=== PATIENT | male | born 1970 | race Caucasian/White ===

== ENCOUNTER → 2017-02-20 | Outpatient (CLI) | payer OTHER ==
[2017-02-20 14:32] LABS: ABSOLUTE BASOPHILS # (AUTO) 0.1 10^3/uL (0.0-0.2); ABSOLUTE EOSINOPHILS # (AUTO) 0.1 10^3/uL (0.0-0.6); ABSOLUTE LYMPHOCYTES (AUTO) 1.6 10^3/uL (0.5-4.7); ABSOLUTE NEUT (AUTO) 8.6 10^3/uL (1.7-8.2); BASOPHILS % (AUTO) 0.9 % (0-2); EOSINOPHILS % (AUTO) 0.5 % (0-6); HEMATOCRIT 42.5 % (37.9-51.0); HEMOGLOBIN 14.9 g/dL (13.5-17.0); HGB HCT DIFFERENCE 2.2; LYMPHOCYTES % (AUTO) 14.3 % (13-45); MEAN CORPUSCULAR HEMOGLOBIN 32.3 pg (27.0-33.4); MEAN CORPUSCULAR HGB CONC 35.1 g/dL (32.0-36.0); MEAN CORPUSCULAR VOLUME 92 fl (80-97); RED BLOOD COUNT 4.61 10^6/uL (4.35-5.55); SEGMENTED NEUTROPHILS % (AUTO) 75.3 % (42-78); WHITE BLOOD COUNT 11.4 10^3/uL (4.0-10.5)
[2017-02-20 14:47] LABS: ALANINE AMINOTRANSFERASE 68 U/L (21-72); ALBUMIN 4.5 g/dL (3.5-5.0); ALKALINE PHOSPHATASE 127 U/L (38-126); ANION GAP 12 (5-19); ASPARTATE AMINO TRANSFERASE 29 U/L (17-59); BILIRUBIN,DIRECT 0.5 mg/dL (0.0-0.4); BILIRUBIN,TOTAL 1.1 mg/dL (0.2-1.3); BLOOD UREA NITROGEN 9 mg/dL (7-20); CALCIUM 9.9 mg/dL (8.4-10.2); CARBON DIOXIDE 24 mmol/L (22-30); CHLORIDE 103 mmol/L (98-107); CREATININE RESULT 1.05 mg/dL (0.52-1.25); GLUCOSE 156 mg/dL (75-110); POTASSIUM 4.7 mmol/L (3.6-5.0); SODIUM 139.3 mmol/L (137-145); TOTAL PROTEIN 7.3 g/dL (6.3-8.2); URIC ACID 7.5 mg/dL (3.5-8.5)
== END ==
LOC: OD 14:09
PROVIDERS: ATTEND Nurse Practitioner Acute Care
DX: M25.562 Pain in left knee (principal)
CPT/HCPCS: 36415; 80053; 84550; 85025

== ENCOUNTER 2019-05-04 23:13 | Inpatient (IN) | payer OTHER ==
[2019-05-04] MEDS ORDERED: NORMAL SALINE 1000 ML 1,000 ML IV ONE (23:50)
[2019-05-04] MEDS ORDERED: ONDANSETRON HCL INJ/PF 4 MG/2 ML SDV IV ONE (23:52)
[2019-05-04] MEDS ORDERED: KETOROLAC TROMETHAMINE INJ/PF 30 MG/1 ML SDV IV ONE (23:52)
[2019-05-05] MEDS ORDERED: FENTANYL CITRATE INJ/PF 100 MCG/2 ML AMPUL IV ONE ×2 (00:17→01:14)
[2019-05-05 00:25] LABS: ABSOLUTE BASOPHILS # (AUTO) 0.1 10^3/uL (0.0-0.2); ABSOLUTE LYMPHOCYTES (AUTO) 1.2 10^3/uL (0.5-4.7); ALBUMIN 4.5 g/dL (3.5-5.0); ALKALINE PHOSPHATASE 121 U/L (38-126); ANION GAP 19 (5-19); ASPARTATE AMINO TRANSFERASE 21 U/L (17-59); BASOPHILS % (AUTO) 0.6 % (0-2); BILIRUBIN,DIRECT 0.5 mg/dL (0.0-0.4); BLOOD UREA NITROGEN 14 mg/dL (7-20); CARBON DIOXIDE 20 mmol/L (22-30); CHLORIDE 97 mmol/L (98-107); EOSINOPHILS % (AUTO) 0.1 % (0-6); GLUCOSE 198 mg/dL (75-110); HEMATOCRIT 46.7 % (37.9-51.0); HEMOGLOBIN 15.6 g/dL (13.5-17.0); LYMPHOCYTES % (AUTO) 6.7 % (13-45); MEAN CORPUSCULAR HEMOGLOBIN 30.9 pg (27.0-33.4); MEAN CORPUSCULAR HGB CONC 33.5 g/dL (32.0-36.0); MEAN CORPUSCULAR VOLUME 92 fl (80-97); MONOCYTES % (AUTO) 5.6 % (3-13); PLATELET COUNT 335 10^3/uL (150-450); POTASSIUM 4.4 mmol/L (3.6-5.0); RED BLOOD COUNT 5.06 10^6/uL (4.35-5.55); RED CELL DISTRIBUTION WIDTH 13.8 % (11.5-14.0); TOTAL CELLS COUNTED % (AUTO) 100 %; TOTAL PROTEIN 7.4 g/dL (6.3-8.2); WHITE BLOOD COUNT 17.2 10^3/uL (4.0-10.5)
[2019-05-05] MEDS ORDERED: NORMAL SALINE 1000 ML 1,000 ML IV ONE ×5 (00:27→20:15)
--- NOTE | 2019-05-05 00:41 | RADIOLOGY REPORT (SQ) ---
CT ABDOMEN PELVIS WITHOUT IV CONTRAST EXAM DATE: 05/04/2019 11:58 PM CDT HISTORY: Abdominal pain. COMPARISON: None. TECHNIQUE: CT scan of the abdomen and pelvis was performed without IV contrast. This exam was performed according to our departmental dose-optimization program, which includes automated exposure control, adjustment of the mA and/or kV according to patient size and/or use of iterative reconstruction technique. FINDINGS: The lung bases are clear. No pleural or pericardial effusions. No hiatal hernia. Hepatic steatosis. The gallbladder, spleen, pancreas, adrenal glands, and kidneys are unremarkable without hydronephrosis. There is a simple cyst in the left kidney. Wall thickening of the urinary bladder likely reactive. The prostate gland and seminal vesicles are unremarkable. There is marked wall thickening with inflammatory stranding involving the sigmoid colon consistent with acute diverticulitis. Additionally, there are multiple pockets of free air consistent with microperforation. No drainable fluid collection is seen at this time. No small bowel obstruction. The appendix is not seen. The aorta is normal caliber. The osseous structures are intact. No abnormal body wall hernia. IMPRESSION: 1. Acute sigmoid diverticulitis with microperforation. 2. No drainable abscess at this time.
[2019-05-05] MEDS ORDERED: PIPERACILLIN/TAZOBACTAM 3.375 GM VIAL IV ONE (00:57)
[2019-05-05] MEDS ORDERED: CIPROFLOXACIN 400 MG/D5W RTU 400 MG/200 ML RTUPB IV SCH (01:00)
--- NOTE | 2019-05-05 01:36 | ER Document Report ---
Entered by CARLOS ROBLEDO SCRIBE 05/05/19 0100 Acting as scribe for:ANGEL JACKSON DO ED GI/ - General Chief Complaint: Abdominal Pain Stated Complaint: ABDOMINAL PAIN Time Seen by Provider: 05/04/19 23:49 Primary Care Provider: DEB ESTRADA NP [Primary Care Provider] - Follow up as needed Mode of Arrival: Ambulatory Information source: Patient Notes: Patient is a 48-year-old male who presents to the emergency department today with complaints of abdominal pain which he states began yesterday at around lunch time. Patient states his abdominal pain has become much worse since yesterday. Patient states the pain has been in the same spot since onset which is just below his umbilicus. Patient also mentions feeling like he has to urinate but can't. Patient states he has had associated nausea, diarrhea, and diaphoresis. Patient denies fevers, history of kidney stones, or history of diverticulitis. TRAVEL OUTSIDE OF THE [place] IN LAST 30 DAYS: No - Related Data Allergies/Adverse Reactions: No Known Allergies Allergy (Verified 05/04/19 23:25) Home Medications: allpurinol. amilodipine Past Medical History - General Information source: Patient - Social History Smoking Status: Never Smoker Cigarette use (# per day): No Frequency of alcohol use: None Drug Abuse: None Lives with: Family Family History: Reviewed & Not Pertinent Patient has suicidal ideation: No Patient has homicidal ideation: No Past Surgical History: Reports: Hx Herniorrhaphy - as a child Review of Systems - Review of Systems Constitutional: See HPI, Diaphoresis. denies: Fever EENT: No symptoms reported Cardiovascular: No symptoms reported Respiratory: No symptoms reported Gastrointestinal: See HPI, Abdominal pain, Diarrhea, Nausea Genitourinary: No symptoms reported Male Genitourinary: No symptoms reported Musculoskeletal: No symptoms reported Skin: No symptoms reported Hematologic/Lymphatic: No symptoms reported Neurological/Psychological: No symptoms reported -: Yes All other systems reviewed and negative Physical Exam - Vital signs Vitals: Temp Pulse Resp BP Pulse Ox 98.9 F 104 H 16 99/69 L 98 05/04/19 23:18 05/04/19 23:18 05/04/19 23:18 05/04/19 23:18 05/04/19 23:18 Interpretation: Hypotensive, Tachycardic - General General appearance: Alert In distress: Mild - HEENT Head: Normocephalic, Atraumatic Extraocular movements intact: Yes Pupils: PERRL Mucous membranes: Dry Pharynx: Normal Neck: Normal - Respiratory Respiratory status: Tachypnea Chest status: Nontender Breath sounds: Normal Chest palpation: Normal - Cardiovascular Rhythm: Regular, Tachycardia - Abdominal Inspection: Obese Distension: Distended Tenderness: Tender - Back Back: Normal, Nontender. No: CVA tenderness - Extremities General upper extremity: Normal inspection, Nontender, Normal color, Normal ROM General lower extremity: Normal inspection, Nontender, Normal color, Normal ROM - Neurological Neuro grossly intact: Yes Cognition: Normal Orientation: AAOx4 Kellie Coma Scale Verbal: Oriented [place] Coma Scale Motor: Obeys Commands Speech: Normal - Psychological Associated symptoms: Normal affect, Normal mood - Skin Skin Temperature: Warm Skin Moisture: Dry Skin Color: Normal Course - Re-evaluation Re-evalutation: 05/05/19 01:[address] Bran regarding CT results. Will come down to evaluate patient. 05/05/19 01:15 Dr. Bran in the emergency department. Will accept patient for admission. Recommend Cipro / Flagyl. Patient is a 48-year-old male who comes in with abdominal pain nausea. No history of kidney stones or diverticulitis. Patient is tachycardic and hypotensive. IV fluids started. Lactic 2.2. CT showing diverticulitis with microperforation. Surgeon has seen the patient and will admit. He does not need any or intervention at this time. Culture sent. Cipro and Flagyl initiated in the emergency department. Pain controlled with fentanyl. Patient will be kept n.p.o. Fluids running. Understands and agrees with plan. Stable at the time of admission to the surgical service. - Vital Signs Vital signs: Temp Pulse Resp BP Pulse Ox 98.9 F 104 H 16 99/69 L 98 05/04/19 23:18 05/04/19 23:18 05/04/19 23:18 05/04/19 23:18 05/04/19 23:18 - Laboratory Result Diagrams: 05/05/19 00:03 05/05/19 00:03 Laboratory results interpreted by me: 05/05/19 05/05/19 05/05/19 00:03 00:03 00:39 WBC 17.2 H Lymph % (Auto) 6.7 L Absolute Neuts (auto) 15.0 H Seg Neutrophils % 87.0 H Sodium 135.6 L Chloride 97 L Carbon Dioxide 20 L Creatinine 2.04 H Est GFR ( Amer) 42 L Est GFR (MDRD) Non-Af 35 L Glucose 198 H Lactic Acid 2.2 H Total Bilirubin 2.0 H Direct Bilirubin 0.5 H Critical Care Note - Critical Care Note Total time excluding time spent on procedures (mins): 35 - Concern for surgical abdomen, multiple re-evaluations, consultation with specialist, coordination of admission, counseling patient and family Discharge - Discharge Clinical Impression: Diverticulitis of intestine with perforation without abscess Qualifiers: Diverticulitis site: large intestine Diverticulitis bleeding: unspecified bleeding status Qualified Code(s): K57.20 - Diverticulitis of large intestine with perforation and abscess without bleeding Condition: Stable Disposition: ADMITTED INPATIENT Admitting Provider: Surgicalist - [facility] Unit Admitted: Surgical Floor Referrals: DEB ESTRADA BIOASSAYIST [Primary Care Provider] - Follow up as needed I personally performed the services described in the documentation, reviewed and edited the documentation which was dictated to the scribe in my presence, and it accurately records my words and actions.
[2019-05-05] MEDS ORDERED: METRONIDAZOLE 500 MG/NS RTU 500 MG/100 ML RTUPB IV ONE (02:00)
--- NOTE | 2019-05-05 02:04 | PDOC H&P ---
History of Present Illness Admission Date/PCP: 05/05/19 01:44 DEB ESTRADA NP Patient complains of: Abdominal pains History of Present Illness: MICHAEL BROWNING is a 48 year old male who has been constipated in the past several days complaining of severe lower abdominal pains last night. This was associated with diarrhea, nausea and chills and fever. He went to ED where CT scan of the abdomen revealed sigmoid diverticulitis with microperforation. He never had any same type of abdominal pains in the past. Past Medical History Medical History: None Past Surgical History Past Surgical History: Reports: Herniorrhaphy - as a child Social History Lives with: Family Smoking Status: Never Smoker Family History Family History: Reviewed & Not Pertinent Parental Family History Reviewed: Yes - Father had diabetes mellitus Children Family History Reviewed: No Sibling(s) Family History Reviewed.: No Medication/Allergy Allergies/Adverse Reactions: No Known Allergies Allergy (Verified 05/04/19 23:25) Review of Systems Constitutional: PRESENT: as per HPI Gastrointestinal: PRESENT: abdominal pain, diarrhea, nausea Physical Exam Vital Signs: Temp Pulse Resp BP Pulse Ox 98.9 F 104 H 16 99/69 L 98 05/04/19 23:18 05/04/19 23:18 05/04/19 23:18 05/04/19 23:18 05/04/19 23:18 Intake & Output 05/03/19 05/04/19 05/05/19 06:59 06:59 06:59 Intake Total 1000 Balance 1000 Weight 95.254 kg General appearance: PRESENT: severe distress Head exam: PRESENT: atraumatic Eye exam: PRESENT: conjunctiva pink Mouth exam: PRESENT: moist Neck exam: PRESENT: full ROM Respiratory exam: PRESENT: clear to auscultation willian Cardiovascular exam: PRESENT: RRR Pulses: PRESENT: normal radial pulses Vascular exam: PRESENT: normal capillary refill GI/Abdominal exam: PRESENT: soft, tenderness - Lower abdomen Rectal exam: PRESENT: deferred Neurological exam: PRESENT: alert, oriented to person, oriented to place, oriented to time, oriented to situation Psychiatric exam: PRESENT: appropriate affect Skin exam: PRESENT: normal color, warm Results Laboratory Results: 05/05/19 00:03 05/05/19 00:03 05/05/19 05/05/19 05/05/19 00:03 00:03 00:39 WBC 17.2 H RBC 5.06 Hgb 15.6 Hct 46.7 MCV 92 MCH 30.9 MCHC 33.5 RDW 13.8 Plt Count 335 Seg Neutrophils % 87.0 H Sodium 135.6 L Potassium 4.4 Chloride 97 L Carbon Dioxide 20 L Anion Gap 19 BUN 14 Creatinine 2.04 H Est GFR ( Amer) 42 L Glucose 198 H Lactic Acid 2.2 H Calcium 10.0 Total Bilirubin 2.0 H AST 21 Alkaline Phosphatase 121 Total Protein 7.4 Albumin 4.5 Lipase 40.7 Impressions: Abdomen/Pelvis CT 05/04/19 23:58 IMPRESSION: 1. Acute sigmoid diverticulitis with microperforation. 2. No drainable abscess at this time. Assessment & Plan - Diagnosis (1) Diverticulitis of intestine with perforation without abscess Qualifiers: Diverticulitis site: large intestine Diverticulitis bleeding: unspecified bleeding status Qualified Code(s): K57.20 - Diverticulitis of large intestine with perforation and abscess without bleeding Is this a current diagnosis for this admission?: Yes - Time Time Spent: 30 to 50 Minutes - Inpatient Certification Medical Necessity: Need For IV Fluids, Need for Pain Control, Need for IV Antibiotics - Plan Summary Plan Summary: 48-year-old male with acute sigmoid diverticulitis with the microperforation noted on CAT scan. His pain started last night long both lower quadrants with nausea and diarrhea. He is tender in both lower quadrants. Plans: IV antibiotics and hydration Monitor monitor physical findings serially and WBCs If his symptoms worsen then he will need exploratory laparotomy with possible colostomy Patient is aware of his condition and above plans
[2019-05-05] MEDS ORDERED: ONDANSETRON HCL INJ/PF 4 MG/2 ML SDV IV PRN (02:26)
[2019-05-05] MEDS: METRONIDAZOLE 500 MG/NS RTU 500 MG/100 ML RTUPB IV SCH ×4 (02:46→22:17)
[2019-05-05] MEDS: KETOROLAC TROMETHAMINE INJ/PF 30 MG/1 ML SDV IV PRN ×3 (04:44→18:36)
[2019-05-05] MEDS: HYDROMORPHONE HCL INJ/PF 2 MG/ML AMPULE IV PRN ×5 (08:05→23:36)
[2019-05-05] MEDS: CIPROFLOXACIN 400 MG/D5W RTU 400 MG/200 ML RTUPB IV SCH ×2 (09:14→22:18)
[2019-05-05] MEDS: FAMOTIDINE INJ/PF 20 MG/2 ML SDV IV SCH ×2 (09:15→22:18)
[2019-05-05] MEDS: ENOXAPARIN SODIUM INJ 40 MG/0.4 ML DISP.SYRIN SUBCUT SCH (09:15)
[2019-05-05] MEDS: DEXTROSE 5%-LACTATED RINGERS 1,000 ML IV PRN ×2 (10:45→22:21)
[2019-05-05 13:26] LABS: HEMATOCRIT 43.8 % (37.9-51.0); MEAN CORPUSCULAR HEMOGLOBIN 31.2 pg (27.0-33.4); MEAN CORPUSCULAR HGB CONC 34.2 g/dL (32.0-36.0); MEAN CORPUSCULAR VOLUME 91 fl (80-97); PLATELET COUNT 247 10^3/uL (150-450); RED CELL DISTRIBUTION WIDTH 13.6 % (11.5-14.0); WHITE BLOOD COUNT 12.6 10^3/uL (4.0-10.5)
[2019-05-05 13:40] LABS: ANION GAP 14 (5-19); BLOOD UREA NITROGEN 28 mg/dL (7-20); CALCIUM 9.2 mg/dL (8.4-10.2); CARBON DIOXIDE 19 mmol/L (22-30); CHLORIDE 102 mmol/L (98-107); GLUCOSE 202 mg/dL (75-110); POTASSIUM 4.8 mmol/L (3.6-5.0)
[2019-05-05] MEDS ORDERED: NORMAL SALINE 1000 ML 2,000 ML IV ONE (13:45)
[2019-05-05 19:56] LABS: ANION GAP 12 (5-19); BLOOD UREA NITROGEN 30 mg/dL (7-20); CALCIUM 8.5 mg/dL (8.4-10.2); CARBON DIOXIDE 16 mmol/L (22-30); CHLORIDE 108 mmol/L (98-107); GLUCOSE 168 mg/dL (75-110); POTASSIUM 4.2 mmol/L (3.6-5.0)
--- NOTE | 2019-05-05 20:48 | PDOC PROGRESS REPORT ---
Subjective Progress Note for:: 05/05/19 Subjective:: This is a 48-year-old male admitted with diverticulitis. Patient reports that his pain is improving. Upon my evaluation, he complained of minimal urine output. The nurses were not keeping strict I's and O's. The patient reports abdominal pain and diarrhea. He denies chest pain, shortness of breath, nausea, vomiting, blurry vision, dizziness, orthostasis. Reason For Visit: ACUTE SIGMOID DIVERTICULITIS WITH MICROPERFORATION Physical Exam Vital Signs: Temp Pulse Resp BP Pulse Ox 97.7 F 105 H 18 126/82 H 97 05/05/19 16:01 05/05/19 16:01 05/05/19 16:01 05/05/19 16:01 05/05/19 16:01 Intake & Output 05/04/19 05/05/19 05/06/19 06:59 06:59 06:59 Intake Total 1100 3300 Output Total 100 Balance 1100 3200 Weight 95.25 kg General appearance: PRESENT: cooperative, mild distress - Abdominal pain Head exam: PRESENT: atraumatic, normocephalic Eye exam: PRESENT: EOMI, PERRLA. ABSENT: scleral icterus Mouth exam: PRESENT: moist, neck supple Neck exam: ABSENT: tenderness, thyromegaly, tracheal deviation, tracheostomy Respiratory exam: PRESENT: clear to auscultation willian, unlabored. ABSENT: chest wall tenderness, tachypnea, wheezes Cardiovascular exam: PRESENT: tachycardia - Mild Pulses: PRESENT: normal radial pulses Vascular exam: PRESENT: normal capillary refill GI/Abdominal exam: PRESENT: distended, soft, tenderness - Market bilateral lower quadrant tenderness. No sign of generalized peritonitis.. ABSENT: rebound, rigid Rectal exam: PRESENT: deferred Extremities exam: ABSENT: clubbing Musculoskeletal exam: ABSENT: deformity Neurological exam: PRESENT: alert, awake, oriented to person, oriented to place, oriented to time, oriented to situation Psychiatric exam: ABSENT: agitated, anxious, depressed Focused psych exam: ABSENT: delusional Skin exam: ABSENT: cyanosis, erythema, jaundice Results Laboratory Results: 05/05/19 12:51 05/05/19 19:28 05/05/19 05/05/19 05/05/19 00:03 00:03 00:39 WBC 17.2 H RBC 5.06 Hgb 15.6 Hct 46.7 MCV 92 MCH 30.9 MCHC 33.5 RDW 13.8 Plt Count 335 Seg Neutrophils % 87.0 H Sodium 135.6 L Potassium 4.4 Chloride 97 L Carbon Dioxide 20 L Anion Gap 19 BUN 14 Creatinine 2.04 H Est GFR ( Amer) 42 L Glucose 198 H Lactic Acid 2.2 H Calcium 10.0 Total Bilirubin 2.0 H AST 21 Alkaline Phosphatase 121 Total Protein 7.4 Albumin 4.5 Lipase 40.7 05/05/19 05/05/19 05/05/19 12:51 12:51 12:51 WBC 12.6 H RBC 4.80 Hgb 15.0 Hct 43.8 MCV 91 MCH 31.2 MCHC 34.2 RDW 13.6 Plt Count 247 Seg Neutrophils % Sodium 134.8 L Potassium 4.8 Chloride 102 Carbon Dioxide 19 L Anion Gap 14 BUN 28 H Creatinine 3.00 H Est GFR ( Amer) 27 L Glucose 202 H Lactic Acid 2.3 H Calcium 9.2 Total Bilirubin AST Alkaline Phosphatase Total Protein Albumin Lipase 05/05/19 05/05/19 19:28 19:28 WBC RBC Hgb Hct MCV MCH MCHC RDW Plt Count Seg Neutrophils % Sodium 136.3 L Potassium 4.2 Chloride 108 H Carbon Dioxide 16 L Anion Gap 12 BUN 30 H Creatinine 2.36 H Est GFR ( Amer) 36 L Glucose 168 H Lactic Acid 1.2 Calcium 8.5 Total Bilirubin AST Alkaline Phosphatase Total Protein Albumin Lipase Impressions: Abdomen/Pelvis CT 05/04/19 23:58 IMPRESSION: 1. Acute sigmoid diverticulitis with microperforation. 2. No drainable abscess at this time. Assessment & Plan - Diagnosis (1) Diverticulitis of intestine with perforation without abscess Qualifiers: Diverticulitis site: large intestine Diverticulitis bleeding: unspecified bleeding status Qualified Code(s): K57.20 - Diverticulitis of large intestine with perforation and abscess without bleeding Is this a current diagnosis for this admission?: Yes - Time Time Spent with patient: 15-24 minutes - Plan Summary Plan Summary: This is a 48-year-old male with diverticulitis. He has abdominal tenderness but not overt generalized peritonitis. He complains of difficulty urinating. I believe he is dehydrated and third spacing. I have given him multiple fluid boluses today. I had the nurses insert a Hanna catheter. The patient is now making adequate amounts of urine. His creatinine was elevated at 3 earlier this morning, but is now trending toward normal. His lactate is 1.2 after several boluses. Continue to monitor urine output, heart rate, and temperature very closely. If his abdominal tenderness, urine output, or heart rate worsens, he may require operative intervention. This has been discussed with the patient at length.
[2019-05-06] MEDS: KETOROLAC TROMETHAMINE INJ/PF 30 MG/1 ML SDV IV PRN ×3 (00:47→20:52)
[2019-05-06] MEDS: METRONIDAZOLE 500 MG/NS RTU 500 MG/100 ML RTUPB IV SCH ×4 (03:32→20:54)
[2019-05-06] MEDS: HYDROMORPHONE HCL INJ/PF 2 MG/ML AMPULE IV PRN ×6 (03:33→21:50)
[2019-05-06 04:52] LABS: HEMATOCRIT 40.2 % (37.9-51.0); HEMOGLOBIN 13.6 g/dL (13.5-17.0); MEAN CORPUSCULAR HEMOGLOBIN 31.3 pg (27.0-33.4); MEAN CORPUSCULAR VOLUME 92 fl (80-97); PLATELET COUNT 244 10^3/uL (150-450); RED BLOOD COUNT 4.36 10^6/uL (4.35-5.55); WHITE BLOOD COUNT 10.4 10^3/uL (4.0-10.5)
[2019-05-06 05:09] LABS: ALBUMIN 2.8 g/dL (3.5-5.0); ALKALINE PHOSPHATASE 54 U/L (38-126); ANION GAP 12 (5-19); ASPARTATE AMINO TRANSFERASE 21 U/L (17-59); BILIRUBIN,DIRECT 0.6 mg/dL (0.0-0.4); BILIRUBIN,TOTAL 1.2 mg/dL (0.2-1.3); BLOOD UREA NITROGEN 29 mg/dL (7-20); CALCIUM 8.6 mg/dL (8.4-10.2); CARBON DIOXIDE 18 mmol/L (22-30); CHLORIDE 112 mmol/L (98-107); GLUCOSE 154 mg/dL (75-110); POTASSIUM 4.3 mmol/L (3.6-5.0); TOTAL PROTEIN 5.3 g/dL (6.3-8.2)
[2019-05-06 05:24] LABS: ABSOLUTE LYMPHOCYTES# (MANUAL) 0.4 10^3/uL (0.5-4.7); ABSOLUTE MONOCYTES # (MANUAL) 0.3 10^3/uL (0.1-1.4); ANISOCYTOSIS SLIGHT; BAND NEUTROPHILS % (MANUAL) 9 % (3-5); BASOPHILS % (MANUAL) 0 % (0-2); EOSINOPHILS % (MANUAL) 0 % (0-6); LYMPHOCYTES % (MANUAL) 4 % (13-45); METAMYELOCYTES % (MANUAL) 1 % (0); MONOCYTES % (MANUAL) 3 % (3-13); PLATELET COMMENT ADEQUATE; PLATELET LARGE PRESENT; SEGMENTED NEUTROPHILS % (MAN) 83 % (42-78); TOTAL CELLS COUNTED 100
[2019-05-06] MEDS ORDERED: INFLUENZA QUAD (6MOS+) 2019-20 VAC 0.5 ML SYR IM ONE (08:00)
[2019-05-06] MEDS: CIPROFLOXACIN 400 MG/D5W RTU 400 MG/200 ML RTUPB IV SCH ×2 (09:32→21:00)
[2019-05-06] MEDS: FAMOTIDINE INJ/PF 20 MG/2 ML SDV IV SCH ×2 (09:33→21:50)
[2019-05-06] MEDS: ENOXAPARIN SODIUM INJ 40 MG/0.4 ML DISP.SYRIN SUBCUT SCH (09:33)
--- NOTE | 2019-05-06 10:32 | PDOC PROGRESS REPORT ---
Subjective Progress Note for:: 05/06/19 Subjective:: Less pains. Had BM and flatus Thirsty Reason For Visit: ACUTE SIGMOID DIVERTICULITIS WITH MICROPERFORATION Physical Exam Vital Signs: Temp Pulse Resp BP Pulse Ox 99.5 F 117 H 16 99/63 L 93 05/06/19 07:40 05/06/19 07:40 05/06/19 07:40 05/06/19 07:40 05/06/19 07:40 Intake & Output 05/05/19 05/06/19 05/07/19 06:59 06:59 06:59 Intake Total 1100 4800 1000 Output Total 650 Balance 1100 4150 1000 Weight 95.25 kg 95 kg Exam: abdomen is soft less tender LLQ Results Laboratory Results: 05/06/19 04:13 05/06/19 04:13 05/05/19 05/05/19 05/05/19 12:51 12:51 12:51 WBC 12.6 H RBC 4.80 Hgb 15.0 Hct 43.8 MCV 91 MCH 31.2 MCHC 34.2 RDW 13.6 Plt Count 247 Seg Neutrophils % Sodium 134.8 L Potassium 4.8 Chloride 102 Carbon Dioxide 19 L Anion Gap 14 BUN 28 H Creatinine 3.00 H Est GFR ( Amer) 27 L Glucose 202 H Lactic Acid 2.3 H Calcium 9.2 Total Bilirubin AST Alkaline Phosphatase Total Protein Albumin 05/05/19 05/05/19 05/06/19 19:28 19:28 04:13 WBC 10.4 RBC 4.36 Hgb 13.6 Hct 40.2 MCV 92 MCH 31.3 MCHC 34.0 RDW 14.0 Plt Count 244 Seg Neutrophils % Not Reportable Sodium 136.3 L Potassium 4.2 Chloride 108 H Carbon Dioxide 16 L Anion Gap 12 BUN 30 H Creatinine 2.36 H Est GFR ( Amer) 36 L Glucose 168 H Lactic Acid 1.2 Calcium 8.5 Total Bilirubin AST Alkaline Phosphatase Total Protein Albumin 05/06/19 04:13 WBC RBC Hgb Hct MCV MCH MCHC RDW Plt Count Seg Neutrophils % Sodium 141.8 Potassium 4.3 Chloride 112 H Carbon Dioxide 18 L Anion Gap 12 BUN 29 H Creatinine 1.95 H Est GFR ( Amer) 44 L Glucose 154 H Lactic Acid Calcium 8.6 Total Bilirubin 1.2 AST 21 Alkaline Phosphatase 54 Total Protein 5.3 L Albumin 2.8 L Impressions: Abdomen/Pelvis CT 05/04/19 23:58 IMPRESSION: 1. Acute sigmoid diverticulitis with microperforation. 2. No drainable abscess at this time. 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 He continues to have bowel movement and flatus. His creatinine is also coming down with the better hydration. Plans: Continue with IV antibiotics and hydration. Start with ice chips today and possibly increase it tomorrow to clear liquids
[2019-05-06] MEDS: DEXTROSE 5%-LACTATED RINGERS 1,000 ML IV PRN ×2 (13:10→21:47)
[2019-05-07] MEDS: HYDROMORPHONE HCL INJ/PF 2 MG/ML AMPULE IV PRN ×5 (02:29→20:55)
[2019-05-07] MEDS: METRONIDAZOLE 500 MG/NS RTU 500 MG/100 ML RTUPB IV SCH ×4 (02:30→20:51)
[2019-05-07 04:48] LABS: HEMATOCRIT 37.9 % (37.9-51.0); HEMOGLOBIN 12.9 g/dL (13.5-17.0); MEAN CORPUSCULAR HEMOGLOBIN 31.6 pg (27.0-33.4); MEAN CORPUSCULAR HGB CONC 34.1 g/dL (32.0-36.0); MEAN CORPUSCULAR VOLUME 93 fl (80-97); PLATELET COUNT 259 10^3/uL (150-450); RED CELL DISTRIBUTION WIDTH 14.2 % (11.5-14.0); WHITE BLOOD COUNT 8.8 10^3/uL (4.0-10.5)
[2019-05-07 05:03] LABS: ANION GAP 12 (5-19); BLOOD UREA NITROGEN 32 mg/dL (7-20); CALCIUM 8.9 mg/dL (8.4-10.2); CARBON DIOXIDE 17 mmol/L (22-30); CHLORIDE 114 mmol/L (98-107); GLUCOSE 147 mg/dL (75-110); POTASSIUM 4.1 mmol/L (3.6-5.0)
[2019-05-07 05:23] LABS: ABSOLUTE LYMPHOCYTES# (MANUAL) 0.4 10^3/uL (0.5-4.7); ABSOLUTE MONOCYTES # (MANUAL) 0.9 10^3/uL (0.1-1.4); ANISOCYTOSIS SLIGHT; BAND NEUTROPHILS % (MANUAL) 7 % (3-5); BASOPHILS % (MANUAL) 0 % (0-2); EOSINOPHILS % (MANUAL) 0 % (0-6); LYMPHOCYTES % (MANUAL) 5 % (13-45); MONOCYTES % (MANUAL) 10 % (3-13); PLATELET COMMENT ADEQUATE; SEGMENTED NEUTROPHILS % (MAN) 78 % (42-78); TOTAL CELLS COUNTED 100
[2019-05-07] MEDS: KETOROLAC TROMETHAMINE INJ/PF 30 MG/1 ML SDV IV PRN (05:55)
[2019-05-07] MEDS: DEXTROSE 5%-LACTATED RINGERS 1,000 ML IV PRN ×2 (05:55→16:44)
[2019-05-07] MEDS: FAMOTIDINE INJ/PF 20 MG/2 ML SDV IV SCH ×2 (09:12→21:00)
[2019-05-07] MEDS: ENOXAPARIN SODIUM INJ 40 MG/0.4 ML DISP.SYRIN SUBCUT SCH (09:12)
[2019-05-07] MEDS: CIPROFLOXACIN 400 MG/D5W RTU 400 MG/200 ML RTUPB IV SCH ×2 (09:17→21:00)
[2019-05-08] MEDS: HYDROMORPHONE HCL INJ/PF 2 MG/ML AMPULE IV PRN (03:00)
[2019-05-08] MEDS ORDERED: FUROSEMIDE INJ/PF 40 MG/4 ML SDV IV ONE (03:30)
[2019-05-08] MEDS ORDERED: LORAZEPAM INJ 2 MG/1 ML VIAL IV ONE (03:30)
[2019-05-08] MEDS: METRONIDAZOLE 500 MG/NS RTU 500 MG/100 ML RTUPB IV SCH ×4 (03:48→21:33)
[2019-05-08] MEDS ORDERED: ONDANSETRON HCL INJ/PF 4 MG/2 ML SDV ONE (04:12)
[2019-05-08] MEDS ORDERED: FENTANYL CITRATE INJ/PF 100 MCG/2 ML AMPUL ONE ×2 (04:12→07:46)
[2019-05-08] MEDS ORDERED: MIDAZOLAM 2 MG/2 ML INJ ONE ×2 (04:12→08:20)
[2019-05-08] MEDS ORDERED: KETOROLAC TROMETHAMINE 60 MG/2 ML SDV ONE (04:12)
[2019-05-08] MEDS ORDERED: DEXAMETHASONE SOD PHOSPHATE INJ 4 MG/1 ML VIAL ONE (04:12)
[2019-05-08] MEDS ORDERED: MORPHINE SULFATE 10 MG/ML INJ ONE ×2 (04:12→07:46)
[2019-05-08] MEDS ORDERED: LIDOCAINE 0.5% INJ-PF (5 MG/ML) 50 ML SDV ONE (04:13)
[2019-05-08] MEDS ORDERED: PROPOFOL INJ 200 MG/20 ML VIAL IV ONE (04:13)
[2019-05-08 04:23] LABS: HEMATOCRIT 42.6 % (37.9-51.0); HEMOGLOBIN 14.5 g/dL (13.5-17.0); MEAN CORPUSCULAR HEMOGLOBIN 31.3 pg (27.0-33.4); MEAN CORPUSCULAR VOLUME 92 fl (80-97); PLATELET COUNT 356 10^3/uL (150-450); RED BLOOD COUNT 4.62 10^6/uL (4.35-5.55); RED CELL DISTRIBUTION WIDTH 14.2 % (11.5-14.0); WHITE BLOOD COUNT 15.6 10^3/uL (4.0-10.5)
[2019-05-08 04:37] LABS: ANION GAP 15 (5-19); BLOOD UREA NITROGEN 24 mg/dL (7-20); CALCIUM 9.6 mg/dL (8.4-10.2); CARBON DIOXIDE 20 mmol/L (22-30); CHLORIDE 105 mmol/L (98-107); GLUCOSE 138 mg/dL (75-110); POTASSIUM 3.8 mmol/L (3.6-5.0)
[2019-05-08 04:42] LABS: ABSOLUTE LYMPHOCYTES# (MANUAL) 1.9 10^3/uL (0.5-4.7); ABSOLUTE MONOCYTES # (MANUAL) 1.2 10^3/uL (0.1-1.4); ANISOCYTOSIS SLIGHT; BAND NEUTROPHILS % (MANUAL) 5 % (3-5); BASOPHILS % (MANUAL) 0 % (0-2); EOSINOPHILS % (MANUAL) 2 % (0-6); LYMPHOCYTES % (MANUAL) 12 % (13-45); MONOCYTES % (MANUAL) 8 % (3-13); SEGMENTED NEUTROPHILS % (MAN) 73 % (42-78); TOTAL CELLS COUNTED 100
[2019-05-08 04:43] LABS: PLATELET COMMENT ADEQUATE
--- NOTE | 2019-05-08 04:46 | RADIOLOGY REPORT (SQ) ---
EXAM DESCRIPTION: XR CHEST 1 VIEW COMPLETED DATE/TME: 05/08/2019 00:00 CLINICAL HISTORY: 48 years Male, SOB COMPARISON: CT, 3 days prior NUMBER OF VIEWS/TECHNIQUE: 1/AP FINDINGS: Moderate pneumoperitoneum. Small obscuration-effusion of the left costophrenic angle, moderate volume, and prominent cardiac silhouette. No pneumothorax. Stable bony thorax. IMPRESSION: Moderate pneumoperitoneum could be iatrogenic or due to bowel perforation. Consider immediate Surgical referral.
[2019-05-08] MEDS ORDERED: DIPHENHYDRAMINE HCL 50 MG/ML VIAL IV PRN (05:59)
[2019-05-08] MEDS ORDERED: FENTANYL CITRATE INJ/PF 100 MCG/2 ML AMPUL IV PRN ×3 (05:59)
[2019-05-08] MEDS ORDERED: MORPHINE SULFATE 10 MG/ML INJ IV PRN (05:59)
[2019-05-08] MEDS ORDERED: PROMETHAZINE HCL INJ 25 MG/1 ML VIAL IV PRN ×2 (05:59)
[2019-05-08] MEDS ORDERED: ONDANSETRON HCL INJ/PF 4 MG/2 ML SDV IV PRN (05:59)
[2019-05-08] MEDS ORDERED: MEPERIDINE HCL/PF INJ 25 MG/1 ML DISP.SYRIN IV PRN (05:59)
[2019-05-08] MEDS ORDERED: OXYCODONE-ACETAMINOPHEN 5-325 MG TABLET PO PRN ×2 (05:59)
[2019-05-08] MEDS ORDERED: SUGAMMADEX SODIUM 200 MG/2 ML SDV IV ONE (07:46)
[2019-05-08] MEDS ORDERED: PHARMACY COMMUNICATION ORDER MC NR (08:15)
[2019-05-08] MEDS ORDERED: DEXMEDETOMIDINE INJ 80 MCG/20 ML VIAL IV ONE (08:20)
--- NOTE | 2019-05-08 08:31 | Operative Report ---
Operative Report DATE OF SURGERY: 05/08/19 PREOPERATIVE DIAGNOSIS: Perforated acute diverticulitis POSTOPERATIVE DIAGNOSIS: Same OPERATION: Exploratory laparotomy, sigmoid resection with distal sigmoid stump and proximal sigmoid colostomy SURGEON: LESLIE ARZATE - With Dr. Adan as co-surgeon ANESTHESIA: GA TISSUE REMOVED OR ALTERED: Sigmoid colon with perforation COMPLICATIONS: None ESTIMATED BLOOD LOSS: 150 cc QUANTITATIVE BLOOD LOSS: 150 INTRAOPERATIVE FINDINGS: Anterior perforation of the sigmoid colon with diverticulitis. Some form exudate around the perforation PROCEDURE: After adequate general anesthesia patient placed in supine position and the a bdomen prepped and draped in the usual sterile fashion. Appropriate timeout was then called. Next a midline incision was then made at the mid epigastric region down to the symphysis pubis. Fascia was then open and some air extruded out. There was some light greenish fluid around the abdominal cavity. The sigmoid colon was then identified and noted to be inflamed with an anterior perforation. This area was then resected using MADY. The distal stump was noted to be above the peritoneal reflection. 2 sutures of 0 Prolene were placed on its end of the distal sigmoid colon as a marker for closure in the future. Next the sigmoid colon which was partially in inflame was then dissected of the lateral gutter and also with the help of LigaSure. The small bowel was then explored and releasing some of the fibrinous adhesions and explored from the terminal ileum at the cecal area up to the ligament of Treitz. No lesion on the small bowel noted. At this point the the NG tube was palpated in the stomach and and the nurse preflight mechanic pushed down further and In place. Was then suctioning the stomach better. Next the abdominal cavity was then irrigated copiously with at least 5 L of saline. The a area of skin about 4 cm was then excised and the fascia underneath divided in a cruciate fashion with the use of cautery. The proximal sigmoid was adequately mobilized then pushed through the opening in the right lower quadrant area without twisting it at this point Dr. Adan then started to mature the colostomy. Meantime the fascia was then closed with #1 PDS starting from both ends and tying them together at the close of the umbilicus. The skin was then closed with bharti and Telfa krystal soaked in Betadine were placed in between the bharti. The colostomy bag was then placed over the colostomy and an OpSite was used to dress the midline incision. Prior to closure of the fascia drain was placed in the left lower quadrant and a 15 Icelandic Clifford was placed in the pelvis and anchored to the skin with 2-0 silk. Needle instrument sponge count were all correct and estimated blood loss about 150 ccs. Patient then brought to PACU in satisfactory condition.
[2019-05-08] MEDS ORDERED: ACETAMINOPHEN 1,000 MG/100 ML RTUPB IV ONE (08:54)
[2019-05-08] MEDS ORDERED: OXYCODONE-ACETAMINOPHEN 5-325 MG TABLET NG PRN ×2 (09:00)
[2019-05-08] MEDS ORDERED: LORAZEPAM INJ 2 MG/1 ML VIAL ONE (09:29)
[2019-05-08] MEDS ORDERED: ROCURONIUM BROMIDE INJ 50 MG/5 ML VIAL IV ONE (09:50)
[2019-05-08] MEDS ORDERED: SUCCINYLCHOLINE CHLORIDE INJ 200 MG/10 ML VIAL ONE (09:50)
--- NOTE | 2019-05-08 11:32 | CRITICAL CARE ADMISSION REPORT ---
HPI Date:: 05/08/19 Time:: 11:00 Reason for ICU Reason:: Post-op monitoring, alcohol withdrawal. HPI: This patient is a 48 yo man admitted several days ago with abdominal pain from diverticulitis and microperforation. He was treated conservatively until early this AM when he became septic with a WBC of 15.5, tachycardia and tachypnea. He was taken to the OR for an anterior sigmoid perforation into the abdominal cavity. A Reinoso's colostomy was performed with an open incision, closed fascia and BRANDI. Another reason for his ICU placement is alcohol WD. On arrival he was diaphoretic with tachycardia, tachypnea. Ativan 2 mg. depressed his mental status significantly. For these reasons ICU monitoring is advised. History obtained from:: Old records and surgeon. - Diagnosis/Plan (1) Alcohol withdrawal delirium Is this a current diagnosis for this admission?: Yes Plan: He is currently delerious, still having effects of anesthesia and requiring ativan. (2) Sepsis Qualifiers: Sepsis type: sepsis due to unspecified organism Sepsis acute organ dysfunction status: without acute organ dysfunction Qualified Code(s): A41.9 - Sepsis, unspecified organism Is this a current diagnosis for this admission?: Yes Plan: Sepsis is subtle with no organ dysfunction and the presence of alcohol WD. Will check lactic acid post-op. (3) Diverticulitis of intestine with perforation without abscess Qualifiers: Diverticulitis site: large intestine Diverticulitis bleeding: unspecified bleeding status Qualified Code(s): K57.20 - Diverticulitis of large intestine with perforation and abscess without bleeding Is this a current diagnosis for this admission?: Yes Plan: Reinoso's and drainage peformed Past Medical History Psychiatric Medical History: Reports: Alcohol Dependency Denies: Depression Past Surgical History Past Surgical History: Reports: Herniorrhaphy - as a child Social/Family History - Social History Lives with: Family Smoking Status: Former Smoker Frequency of Alcohol Use: Occasional Hx Recreational Drug Use: No Drugs: None Hx Prescription Drug Abuse: No - Medication/Allergies Home Medications: Amlodipine Besylate [Norvasc 2.5 mg Tablet] 2.5 mg PO DAILY 05/05/19 Losartan Potassium [Cozaar 100 mg Tablet] 100 mg PO DAILY 05/05/19 Omeprazole Magnesium [Prilosec Otc] 20 mg PO DAILY 05/05/19 Allergies/Adverse Reactions: No Known Allergies Allergy (Verified 05/04/19 23:25) Review of Systems ROS unobtainable: Due to mental status Physical Exam Vital Signs: Temp Pulse Resp BP Pulse Ox 99.5 F 125 H 20 114/72 98 05/08/19 08:25 05/08/19 08:25 05/08/19 08:25 05/08/19 08:25 05/08/19 08:25 Intake & Output 05/07/19 05/08/19 05/09/19 06:59 06:59 06:59 Intake Total 4280 2580 3600 Output Total 550 700 Balance 3730 1880 3600 Weight 84.8 kg Weight/Height Weight 84.8 kg Height 5 ft 11 in General appearance: PRESENT: disheveled, mild distress Head exam: PRESENT: atraumatic, normocephalic Eye exam: PRESENT: conjunctiva pink, EOMI, PERRLA. ABSENT: scleral icterus Ear exam: PRESENT: normal external ear exam Mouth exam: PRESENT: moist, tongue midline Respiratory exam: PRESENT: clear to auscultation willian. ABSENT: rales, rhonchi, wheezes Cardiovascular exam: PRESENT: tachycardia Vascular exam: PRESENT: normal capillary refill GI/Abdominal exam: PRESENT: other - Colostomy pink. Not functional yet. Wound left with betadine packing. BRANDI draining serosanguinous drainage. Rectal exam: PRESENT: deferred Extremities exam: PRESENT: full ROM Musculoskeletal exam: PRESENT: normal inspection Neurological exam: PRESENT: alert, altered Laboratory/Radiographs Laboratory Results: 05/08/19 04:05 05/08/19 04:05 05/08/19 05/08/19 05/08/19 04:05 04:05 04:05 WBC 15.6 H RBC 4.62 Hgb 14.5 Hct 42.6 MCV 92 MCH 31.3 MCHC 34.0 RDW 14.2 H Plt Count 356 Seg Neutrophils % Not Reportable Sodium 139.5 Potassium 3.8 Chloride 105 Carbon Dioxide 20 L Anion Gap 15 BUN 24 H Creatinine 1.19 Est GFR ( Amer) > 60 Glucose 138 H Calcium 9.6 Blood Type O POSITIVE Antibody Screen NEGATIVE Impressions: Abdomen/Pelvis CT 05/04/19 23:58 IMPRESSION: 1. Acute sigmoid diverticulitis with microperforation. 2. No drainable abscess at this time. Chest X-Ray 05/08/19 00:00 IMPRESSION: Moderate pneumoperitoneum could be iatrogenic or due to bowel perforation. Consider immediate Surgical referral. Critical Time Critical Time (minutes): 35 -: The care of a critically ill patient is dynamic. This note represents a static moment in the admission process. orders and treatments may be given simulataneously and urgentl, and time is not inventory representative of the treatment process. This patient requires Critical Care secondary to life threating organ or limb dysfunction. Without the need for Critical Care services, the patient is at risk for increasid mortality and morbidity.
[2019-05-08] MEDS: ENOXAPARIN SODIUM INJ 40 MG/0.4 ML DISP.SYRIN SUBCUT SCH (11:57)
[2019-05-08] MEDS: CIPROFLOXACIN 400 MG/D5W RTU 400 MG/200 ML RTUPB IV SCH ×2 (12:11→21:35)
[2019-05-08] MEDS: DEXTROSE 5%-LACTATED RINGERS 1,000 ML IV PRN ×3 (12:12→23:28)
[2019-05-08] MEDS: FAMOTIDINE INJ/PF 20 MG/2 ML SDV IV SCH ×2 (12:12→21:35)
[2019-05-08] MEDS: LORAZEPAM INJ 2 MG/1 ML VIAL IV PRN ×4 (18:27→22:47)
[2019-05-08] MEDS ORDERED: DEXTROSE 50%-WATER 25 GM/50 ML DISP.SYRIN IV PRN ×2 (18:38)
[2019-05-08] MEDS ORDERED: GLUCAGON,HUMAN RECOMB 1 MG INJ SUBCUT PRN (18:38)
[2019-05-08] MEDS ORDERED: DEXTROSE 40% GEL 15 GM TUBE PO PRN ×2 (18:38)
--- NOTE | 2019-05-08 21:40 | RADIOLOGY REPORT (SQ) ---
EXAM DESCRIPTION: [facility]: XR CHEST 1 VIEW CLINICAL HISTORY: 48 years Male, tube placement FINDINGS: AP chest at 2105. Since this morning at 0329, enteric tube is been placed, tip in the fundus of the stomach. There is a persistent small left pleural effusion. Mild central interstitial edema. No pneumothorax. No identifiable residual pneumoperitoneum. Mediastinum is unremarkable for positioning. IMPRESSION: Enteric tube tip in the stomach. Mild pulmonary vascular congestion
[2019-05-08] MEDS ORDERED: FUROSEMIDE INJ/PF 20 MG/2 ML SDV IV ONE (23:30)
[2019-05-09] MEDS: LORAZEPAM INJ 2 MG/1 ML VIAL IV PRN ×10 (03:52→23:02)
[2019-05-09] MEDS: METRONIDAZOLE 500 MG/NS RTU 500 MG/100 ML RTUPB IV SCH ×4 (03:52→20:23)
[2019-05-09 04:38] LABS: HEMATOCRIT 35.6 % (37.9-51.0); MEAN CORPUSCULAR HEMOGLOBIN 30.8 pg (27.0-33.4); MEAN CORPUSCULAR HGB CONC 33.3 g/dL (32.0-36.0); MEAN CORPUSCULAR VOLUME 93 fl (80-97); PLATELET COUNT 340 10^3/uL (150-450); RED BLOOD COUNT 3.85 10^6/uL (4.35-5.55); RED CELL DISTRIBUTION WIDTH 14.5 % (11.5-14.0); WHITE BLOOD COUNT 13.9 10^3/uL (4.0-10.5)
[2019-05-09 04:42] LABS: HEMOGLOBIN 11.9 g/dL (13.5-17.0)
[2019-05-09 04:56] LABS: ANION GAP 9 (5-19); BLOOD UREA NITROGEN 21 mg/dL (7-20); CALCIUM 8.5 mg/dL (8.4-10.2); CARBON DIOXIDE 24 mmol/L (22-30); CHLORIDE 106 mmol/L (98-107); GLUCOSE 187 mg/dL (75-110); POTASSIUM 4.2 mmol/L (3.6-5.0)
[2019-05-09 05:03] LABS: ABSOLUTE LYMPHOCYTES# (MANUAL) 0.7 10^3/uL (0.5-4.7); ABSOLUTE MONOCYTES # (MANUAL) 0.8 10^3/uL (0.1-1.4); BAND NEUTROPHILS % (MANUAL) 4 % (3-5); BASOPHILS % (MANUAL) 0 % (0-2); EOSINOPHILS % (MANUAL) 1 % (0-6); LYMPHOCYTES % (MANUAL) 5 % (13-45); MONOCYTES % (MANUAL) 6 % (3-13); SEGMENTED NEUTROPHILS % (MAN) 84 % (42-78); TOTAL CELLS COUNTED 100
[2019-05-09 05:04] LABS: ANISOCYTOSIS SLIGHT; PLATELET COMMENT ADEQUATE
[2019-05-09] MEDS: KETOROLAC TROMETHAMINE INJ/PF 30 MG/1 ML SDV IV PRN (08:16)
--- NOTE | 2019-05-09 09:29 | PDOC PROGRESS REPORT ---
Subjective Progress Note for:: 05/09/19 Subjective:: Patient sleeping slightly disoriented secondary to Ativan use for DTs Reason For Visit: ACUTE SIGMOID DIVERTICULITIS WITH MICROPERFORATION Physical Exam Vital Signs: Temp Pulse Resp BP Pulse Ox 99.4 F 107 H 22 H 146/101 H 100 05/09/19 08:00 05/09/19 08:00 05/09/19 08:00 05/09/19 08:00 05/09/19 08:00 Intake & Output 05/08/19 05/09/19 05/10/19 06:59 06:59 06:59 Intake Total 3880 54777 Output Total 8700 2470 190 Balance -4820 22645 -190 General appearance: PRESENT: no acute distress Eye exam: PRESENT: EOMI Mouth exam: PRESENT: moist Neck exam: PRESENT: full ROM Respiratory exam: PRESENT: clear to auscultation willian Cardiovascular exam: PRESENT: RRR Pulses: PRESENT: normal femoral pulses, normal dorsalis pedis pul GI/Abdominal exam: PRESENT: soft - Dressing intact the stoma is pink with minimal output Rectal exam: PRESENT: deferred Gentrourinary exam: PRESENT: indwelling catheter Extremities exam: PRESENT: full ROM Musculoskeletal exam: PRESENT: full ROM Neurological exam: PRESENT: altered - Patient sedated with Ativan secondary to his delirium tremens Psychiatric exam: PRESENT: flat affect Skin exam: PRESENT: dry Results Laboratory Results: 05/09/19 04:07 05/09/19 04:07 05/09/19 05/09/19 04:07 04:07 WBC 13.9 H RBC 3.85 L Hgb 11.9 L D Hct 35.6 L MCV 93 MCH 30.8 MCHC 33.3 RDW 14.5 H Plt Count 340 Seg Neutrophils % Not Reportable Sodium 138.7 Potassium 4.2 Chloride 106 Carbon Dioxide 24 Anion Gap 9 BUN 21 H Creatinine 0.96 Est GFR ( Amer) > 60 Glucose 187 H Calcium 8.5 Impressions: Abdomen/Pelvis CT 05/04/19 23:58 IMPRESSION: 1. Acute sigmoid diverticulitis with microperforation. 2. No drainable abscess at this time. Chest X-Ray 05/08/19 00:00 IMPRESSION: Enteric tube tip in the stomach. Mild pulmonary vascular congestion Assessment & Plan - Time Time Spent with patient: 25-34 minutes - Plan Summary Plan Summary: Impression status post sigmoid ectomy with end colostomy for perforated diverticulitis postop has developed delirium tremens and is managed in the intensive care unit for EtOH withdrawal. Currently he is abdominal exam is stable he has a closed midline incision with a stoma in the left lower quadrant that is minimally productive at this time postop day 1 however the stoma is pink and viable Recommendation continue ICU care for his delirium tremens and EtOH withdrawal per the supervisor hot dip plating Continue IV fluids n.p.o. status awaiting return of bowel function.
--- NOTE | 2019-05-09 09:32 | PDOC PROGRESS REPORT ---
Subjective Progress Note for:: 05/09/19 Subjective:: Patient does not seem to be in pain. Significantly altered from ETOH WD. Reason For Visit: ACUTE SIGMOID DIVERTICULITIS WITH MICROPERFORATION Physical Exam Vital Signs: Temp Pulse Resp BP Pulse Ox 99.4 F 107 H 22 H 146/101 H 100 05/09/19 08:00 05/09/19 08:00 05/09/19 08:00 05/09/19 08:00 05/09/19 08:00 Intake & Output 05/08/19 05/09/19 05/10/19 06:59 06:59 06:59 Intake Total 3880 62716 Output Total 8700 2470 190 Balance -4820 32006 -190 General appearance: PRESENT: no acute distress Head exam: PRESENT: atraumatic, normocephalic Additional Comments: NG present Eye exam: PRESENT: conjunctiva pink, EOMI, PERRLA. ABSENT: scleral icterus Ear exam: PRESENT: normal external ear exam Mouth exam: PRESENT: moist, tongue midline Respiratory exam: PRESENT: clear to auscultation willian, decreased breath sounds, unlabored Cardiovascular exam: PRESENT: tachycardia Pulses: PRESENT: normal dorsalis pedis pul, +2 pedal pulses bilateral Vascular exam: PRESENT: normal capillary refill GI/Abdominal exam: PRESENT: diminished bowel sounds, hypoactive bowel sounds, s oft Additonal comments: Incision still dressed. Healing by secondary intention. Colostomy red, no output yet. BRANDI with serosanginous material. Rectal exam: PRESENT: deferred Gentrourinary exam: PRESENT: indwelling catheter Extremities exam: PRESENT: full ROM Musculoskeletal exam: PRESENT: normal inspection Neurological exam: PRESENT: altered, awake, oriented to person Psychiatric exam: PRESENT: agitated Skin exam: PRESENT: dry, normal color Results Laboratory Results: 05/09/19 04:07 05/09/19 04:07 05/09/19 05/09/19 04:07 04:07 WBC 13.9 H RBC 3.85 L Hgb 11.9 L D Hct 35.6 L MCV 93 MCH 30.8 MCHC 33.3 RDW 14.5 H Plt Count 340 Seg Neutrophils % Not Reportable Sodium 138.7 Potassium 4.2 Chloride 106 Carbon Dioxide 24 Anion Gap 9 BUN 21 H Creatinine 0.96 Est GFR ( Amer) > 60 Glucose 187 H Calcium 8.5 Impressions: Abdomen/Pelvis CT 05/04/19 23:58 IMPRESSION: 1. Acute sigmoid diverticulitis with microperforation. 2. No drainable abscess at this time. Chest X-Ray 05/08/19 00:00 IMPRESSION: Enteric tube tip in the stomach. Mild pulmonary vascular congestion Assessment & Plan - Diagnosis (1) Alcohol withdrawal delirium Is this a current diagnosis for this admission?: Yes Plan: Currently the main condition requiring ICU management. He was getting ativan at an hourly rate and required restraints overnight. He is more managablr this AM but more time in the ICU would be beneficial. (2) Sepsis Qualifiers: Sepsis type: sepsis due to unspecified organism Sepsis acute organ dysfunction status: without acute organ dysfunction Qualified Code(s): A41.9 - Sepsis, unspecified organism Is this a current diagnosis for this admission?: Yes Plan: Sepsis is resolved (3) Diverticulitis of intestine with perforation without abscess Qualifiers: Diverticulitis site: large intestine Diverticulitis bleeding: unspecified bleeding status Qualified Code(s): K57.20 - Diverticulitis of large intestine with perforation and abscess without bleeding Is this a current diagnosis for this admission?: Yes Plan: Continue antibiotics. Cipro and flagyl should cover. Routine post-op care for Hatmans colostomy - Time Time Spent with patient: 35 or more minutes Total Critical Time (Minutes): 35 Level of Care: ICU Medications reviewed and adjusted accordingly: Yes Anticipated discharge: Home Within: Other - When ETOH WD is improved and he is tolerating a diet. No specific date yet. - Inpatient Certification Based on my medical assessment, after consideration of the patient's comorbidities, presenting symptoms, or acuity I expect that the services needed warrant INPATIENT care.: Yes I certify that my determination is in accordance with my understanding of Medicare's requirements for reasonable and necessary INPATIENT services [42 CFR 412.3e].: Yes Medical Necessity: Failure to Improve With Outpatient Therapy, Significant Comorbidiites Make Outpatient Treatment Too Risky, Need Close Monitoring Due to Risk of Patient Decompensation, Need For IV Fluids, Need For Continuous Telemetry Monitoring, Need for Neurological Checks, Need for Pain Control, Need for IV Antibiotics, Need for Surgery, Risk of Complication if Not Cared For in Hospital
[2019-05-09] MEDS: ENOXAPARIN SODIUM INJ 40 MG/0.4 ML DISP.SYRIN SUBCUT SCH (10:40)
[2019-05-09] MEDS: CIPROFLOXACIN 400 MG/D5W RTU 400 MG/200 ML RTUPB IV SCH ×2 (10:41→21:56)
[2019-05-09] MEDS: FAMOTIDINE INJ/PF 20 MG/2 ML SDV IV SCH ×2 (10:41→21:55)
[2019-05-09] MEDS: DEXTROSE 5%-LACTATED RINGERS 1,000 ML IV PRN (13:40)
[2019-05-09] MEDS: HYDROMORPHONE HCL INJ/PF 2 MG/ML AMPULE IV PRN ×3 (15:45→22:58)
[2019-05-10] MEDS: METRONIDAZOLE 500 MG/NS RTU 500 MG/100 ML RTUPB IV SCH ×4 (02:08→21:02)
[2019-05-10] MEDS: HYDROMORPHONE HCL INJ/PF 2 MG/ML AMPULE IV PRN (02:35)
[2019-05-10] MEDS: LORAZEPAM INJ 2 MG/1 ML VIAL IV PRN ×6 (02:36→22:04)
[2019-05-10 04:38] LABS: HEMATOCRIT 34.7 % (37.9-51.0); HEMOGLOBIN 11.5 g/dL (13.5-17.0); MEAN CORPUSCULAR HEMOGLOBIN 30.5 pg (27.0-33.4); MEAN CORPUSCULAR HGB CONC 33.3 g/dL (32.0-36.0); MEAN CORPUSCULAR VOLUME 92 fl (80-97); PLATELET COUNT 446 10^3/uL (150-450); RED BLOOD COUNT 3.78 10^6/uL (4.35-5.55); RED CELL DISTRIBUTION WIDTH 14.5 % (11.5-14.0); WHITE BLOOD COUNT 12.8 10^3/uL (4.0-10.5)
[2019-05-10 04:46] LABS: ANION GAP 7 (5-19); BLOOD UREA NITROGEN 21 mg/dL (7-20); CALCIUM 8.5 mg/dL (8.4-10.2); CARBON DIOXIDE 26 mmol/L (22-30); CHLORIDE 108 mmol/L (98-107); GLUCOSE 125 mg/dL (75-110); POTASSIUM 3.7 mmol/L (3.6-5.0)
[2019-05-10 05:01] LABS: ABSOLUTE LYMPHOCYTES# (MANUAL) 1.7 10^3/uL (0.5-4.7); ANISOCYTOSIS SLIGHT; BASOPHILS % (MANUAL) 0 % (0-2); EOSINOPHILS % (MANUAL) 6 % (0-6); LYMPHOCYTES % (MANUAL) 13 % (13-45); MONOCYTES % (MANUAL) 8 % (3-13); SEGMENTED NEUTROPHILS % (MAN) 73 % (42-78); TOTAL CELLS COUNTED 100
[2019-05-10 05:02] LABS: PLATELET COMMENT ADEQUATE
[2019-05-10] MEDS: DEXMEDETOMIDINE IN NS 400 MCG/100 ML RTUPB IV PRN ×3 (08:44→21:01)
--- NOTE | 2019-05-10 09:53 | PDOC PROGRESS REPORT ---
Subjective Progress Note for:: 05/10/19 Subjective:: Patient in the intensive care unit, gatering in the bed ; not following commands; experiencing alcohol withdrawal; now on Precedex drip Reason For Visit: ACUTE SIGMOID DIVERTICULITIS WITH MICROPERFORATION Physical Exam Vital Signs: Temp Pulse Resp BP Pulse Ox 99.9 F 120 H 25 H 161/120 H 94 05/10/19 08:00 05/10/19 08:00 05/10/19 08:00 05/10/19 08:00 05/10/19 08:00 Intake & Output 05/09/19 05/10/19 05/11/19 06:59 06:59 06:59 Intake Total 71407 2800 11 Output Total 2470 2265 300 Balance 02586 535 -289 Weight 100 kg 101.7 kg General appearance: PRESENT: other - Been agitated, restrained, admitted, not fo llowing commands, mumbling, awake. GI/Abdominal exam: PRESENT: other - Abdomen exposed. Operative dressing removed, and Telfa slips removed from draining areas between bharti. Wound irrigated with peroxide Q-tip and bharti left in position. Ostomy pink; old blood in bag; no stool yet: Serosanguineous drainage from left lower quadrant drain Results Laboratory Results: 05/10/19 04:16 05/10/19 04:16 05/10/19 05/10/19 04:16 04:16 WBC 12.8 H RBC 3.78 L Hgb 11.5 L Hct 34.7 L MCV 92 MCH 30.5 MCHC 33.3 RDW 14.5 H Plt Count 446 Seg Neutrophils % Not Reportable Sodium 141.0 Potassium 3.7 Chloride 108 H Carbon Dioxide 26 Anion Gap 7 BUN 21 H Creatinine 0.92 Est GFR ( Amer) > 60 Glucose 125 H Calcium 8.5 05/05/19 01:40 Blood Blood Culture - Final Staphylococcus Epidermidis 05/05/19 03:03 Blood Blood Culture - Final NO GROWTH IN 5 DAYS Impressions: Abdomen/Pelvis CT 05/04/19 23:58 IMPRESSION: 1. Acute sigmoid diverticulitis with microperforation. 2. No drainable abscess at this time. Chest X-Ray 05/08/19 00:00 IMPRESSION: Enteric tube tip in the stomach. Mild pulmonary vascular congestion Assessment & Plan - Diagnosis (1) Diverticulitis of intestine with perforation without abscess Qualifiers: Diverticulitis site: large intestine Diverticulitis bleeding: unspecified bleeding status Qualified Code(s): K57.20 - Diverticulitis of large intestine with perforation and abscess without bleeding Is this a current diagnosis for this admission?: Yes Plan: Impression and recommendations: Patient doing reasonably well 2 days postoperative exploratory laparotomy, sigmoid colectomy, colostomy for further diverticular disease. Postoperative course complicated by alcohol withdrawal requiring Precedex drip for control Plan: 1. Leave in ICU, on Precedex drip, restraint 2. Discontinue nasogastric tube 3. Monitor midline wound; currently recovered with home dressing 4. Blood culture 1 out of 2 growing staph epidermidis, possible contaminant. (2) Alcohol withdrawal delirium Is this a current diagnosis for this admission?: Yes - Time Time Spent with patient: 15-24 minutes
[2019-05-10] MEDS: ENOXAPARIN SODIUM INJ 40 MG/0.4 ML DISP.SYRIN SUBCUT SCH (10:03)
[2019-05-10] MEDS: THIAMINE HCL 100 MG, FOLIC ACID 1 MG in NORMAL SALINE 250 ML IV SCH (10:03)
[2019-05-10] MEDS: CIPROFLOXACIN 400 MG/D5W RTU 400 MG/200 ML RTUPB IV SCH ×2 (10:03→22:04)
[2019-05-10] MEDS: FAMOTIDINE INJ/PF 20 MG/2 ML SDV IV SCH ×2 (10:04→22:04)
--- NOTE | 2019-05-10 11:11 | PDOC PROGRESS REPORT ---
Subjective Progress Note for:: 05/10/19 Subjective:: Critical Care Progress Note. Pt has been confused and agitated due to his ETOH withdrawal. I started pt on precedex drip this am. Reason For Visit: ACUTE SIGMOID DIVERTICULITIS WITH MICROPERFORATION Physical Exam Vital Signs: Temp Pulse Resp BP Pulse Ox 99.9 F 81 17 163/99 H 100 05/10/19 08:00 05/10/19 10:00 05/10/19 10:00 05/10/19 10:00 05/10/19 10:00 Intake & Output 05/09/19 05/10/19 05/11/19 06:59 06:59 06:59 Intake Total 22925 2800 11 Output Total 2470 2265 600 Balance 71418 535 -589 Weight 100 kg 101.7 kg General appearance: PRESENT: no acute distress, well-developed, well-nourished, other - sedated Respiratory exam: PRESENT: clear to auscultation willian, unlabored Cardiovascular exam: PRESENT: RRR GI/Abdominal exam: PRESENT: other - midline incision bandaged, BRANDI drain, ostomy Extremities exam: PRESENT: other - no edema Results Laboratory Results: 05/10/19 04:16 05/10/19 04:16 05/10/19 05/10/19 04:16 04:16 WBC 12.8 H RBC 3.78 L Hgb 11.5 L Hct 34.7 L MCV 92 MCH 30.5 MCHC 33.3 RDW 14.5 H Plt Count 446 Seg Neutrophils % Not Reportable Sodium 141.0 Potassium 3.7 Chloride 108 H Carbon Dioxide 26 Anion Gap 7 BUN 21 H Creatinine 0.92 Est GFR ( Amer) > 60 Glucose 125 H Calcium 8.5 05/05/19 01:40 Blood Blood Culture - Final Staphylococcus Epidermidis 05/05/19 03:03 Blood Blood Culture - Final NO GROWTH IN 5 DAYS Impressions: Abdomen/Pelvis CT 05/04/19 23:58 IMPRESSION: 1. Acute sigmoid diverticulitis with microperforation. 2. No drainable abscess at this time. Chest X-Ray 05/08/19 00:00 IMPRESSION: Enteric tube tip in the stomach. Mild pulmonary vascular congestion Assessment & Plan - Diagnosis (1) Diverticulitis of intestine with perforation without abscess Qualifiers: Diverticulitis site: large intestine Diverticulitis bleeding: unspecified bleeding status Qualified Code(s): K57.20 - Diverticulitis of large intestine with perforation and abscess without bleeding Is this a current diagnosis for this admission?: Yes (2) Alcohol withdrawal delirium Is this a current diagnosis for this admission?: Yes - Time Time Spent with patient: 35 or more minutes Total Critical Time (Minutes): 35 Level of Care: ICU Provider Note Provider Note: Assessment: 48 yo man with perforated sigmoid diverticulitis, s/p sigmoidectomy with end colostomy on 05/08, alcohol withdrawal. Plan: 1. Respiratory:stable on nasal cannula. Wean to RA as tolerated 2. CV: heart rate and BP acceptable 3. Surgery:perforated sigmoid diverticulitis, s/p sigmoidectomy with end colostomy on 05/08. Care per surgery 4. ID: peritonitis due to sigmoid perforation. Day 6 of cipro and flagyl 5. Psych: ETOH withdrawal. I started pt on precedex today. Continue prn ativan. Start Folic acid and thiamine 6. Nutrition: NPO per surgery 7. Endocrine: accuchecks, SSI 8. Prophylaxis: lovenox Critical care time= 35 min, excluding procedures
[2019-05-10] MEDS: DEXTROSE 5%-LACTATED RINGERS 1,000 ML IV PRN ×2 (14:33)
[2019-05-11] MEDS: LORAZEPAM INJ 2 MG/1 ML VIAL IV PRN ×2 (00:40→03:47)
[2019-05-11] MEDS: DEXMEDETOMIDINE IN NS 400 MCG/100 ML RTUPB IV PRN ×5 (03:46→20:49)
[2019-05-11] MEDS: METRONIDAZOLE 500 MG/NS RTU 500 MG/100 ML RTUPB IV SCH (03:47)
[2019-05-11] MEDS: DEXTROSE 5%-LACTATED RINGERS 1,000 ML IV PRN ×2 (05:23→17:48)
[2019-05-11 08:38] LABS: MEAN CORPUSCULAR HGB CONC 34.3 g/dL (32.0-36.0); MEAN CORPUSCULAR VOLUME 90 fl (80-97); PLATELET COUNT 478 10^3/uL (150-450); RED CELL DISTRIBUTION WIDTH 14.1 % (11.5-14.0); WHITE BLOOD COUNT 14.7 10^3/uL (4.0-10.5)
[2019-05-11 09:00] LABS: ANION GAP 7 (5-19); BLOOD UREA NITROGEN 14 mg/dL (7-20); CARBON DIOXIDE 27 mmol/L (22-30); CHLORIDE 102 mmol/L (98-107); GLUCOSE 122 mg/dL (75-110)
[2019-05-11] MEDS ORDERED: VANCOMYCIN HCL 0 MG in DEXTROSE 5%-WATER 250 ML IV NR (09:00)
--- NOTE | 2019-05-11 09:00 | PDOC PROGRESS REPORT ---
Subjective Progress Note for:: 05/11/19 Subjective:: Critical Care Progress Note. Pt remains on precedex. Was agitated and combative overnight. Reason For Visit: ACUTE SIGMOID DIVERTICULITIS WITH MICROPERFORATION Physical Exam Vital Signs: Temp Pulse Resp BP Pulse Ox 101 F H 74 18 153/97 H 96 05/11/19 08:00 05/11/19 08:00 05/11/19 08:00 05/11/19 08:00 05/11/19 08:00 Intake & Output 05/10/19 05/11/19 05/12/19 06:59 06:59 06:59 Intake Total 2800 3295 Output Total 2265 2896 0 Balance 535 399 0 Weight 101.7 kg 100.9 kg General appearance: PRESENT: no acute distress, well-developed, well-nourished Respiratory exam: PRESENT: decreased breath sounds, unlabored Cardiovascular exam: PRESENT: RRR GI/Abdominal exam: PRESENT: other - midline incision bandaged. BRANDI drain in place. Ostomy Extremities exam: PRESENT: other - no edema Neurological exam: PRESENT: other - sedated Results Laboratory Results: 05/11/19 08:17 05/11/19 08:17 WBC 14.7 H RBC 4.20 L Hgb 13.0 L Hct 38.0 MCV 90 MCH 31.0 MCHC 34.3 RDW 14.1 H Plt Count 478 H Seg Neutrophils % Not Reportable 05/05/19 01:40 Blood Blood Culture - Final Staphylococcus Epidermidis Impressions: Abdomen/Pelvis CT 05/04/19 23:58 IMPRESSION: 1. Acute sigmoid diverticulitis with microperforation. 2. No drainable abscess at this time. Chest X-Ray 05/08/19 00:00 IMPRESSION: Enteric tube tip in the stomach. Mild pulmonary vascular congestion Assessment & Plan - Diagnosis (1) Diverticulitis of intestine with perforation without abscess Qualifiers: Diverticulitis site: large intestine Diverticulitis bleeding: unspecified bleeding status Qualified Code(s): K57.20 - Diverticulitis of large intestine with perforation and abscess without bleeding Is this a current diagnosis for this admission?: Yes (2) Alcohol withdrawal delirium Is this a current diagnosis for this admission?: Yes - Time Time Spent with patient: 25-34 minutes Total Critical Time (Minutes): 33 Level of Care: ICU Provider Note Provider Note: Assessment: 48 yo man with perforated sigmoid diverticulitis, s/p sigmoidectomy with end colostomy on 05/08, alcohol withdrawal, leukocytosis, probable aspirat ion PNA Plan: 1. Respiratory:stable on nasal cannula. Wean to RA as tolerated 2. CV: heart rate and BP acceptable 3. Surgery:perforated sigmoid diverticulitis, s/p sigmoidectomy with end colostomy on 05/08. Care per surgery 4. ID: peritonitis due to sigmoid perforation. Day 7 of cipro and flagyl, will stop. Now with fever and leukocytosis. Probable aspiration PNA. Will start vanc and zosyn. Will check cultures and CXR. 5. Psych: ETOH withdrawal. Continue precedex. Continue prn ativan. Continue Folic acid and thiamine 6. Nutrition: NPO per surgery 7. Endocrine: accuchecks, SSI 8. Prophylaxis: lovenox Critical care time= 33 min,excluding procedures
[2019-05-11 09:09] LABS: ABSOLUTE LYMPHOCYTES# (MANUAL) 2.4 10^3/uL (0.5-4.7); ABSOLUTE MONOCYTES # (MANUAL) 0.9 10^3/uL (0.1-1.4); BASOPHILS % (MANUAL) 0 % (0-2); EOSINOPHILS % (MANUAL) 3 % (0-6); LYMPHOCYTES % (MANUAL) 16 % (13-45); MONOCYTES % (MANUAL) 6 % (3-13); SEGMENTED NEUTROPHILS % (MAN) 75 % (42-78); TOTAL CELLS COUNTED 100
[2019-05-11 09:14] LABS: ANISOCYTOSIS SLIGHT; PLATELET COMMENT INCREASED; TOXIC GRANULATION 1+; TOXIC VACUOLATION PRESENT
[2019-05-11] MEDS: FAMOTIDINE INJ/PF 20 MG/2 ML SDV IV SCH ×2 (09:55→21:13)
[2019-05-11] MEDS: ENOXAPARIN SODIUM INJ 40 MG/0.4 ML DISP.SYRIN SUBCUT SCH (09:56)
[2019-05-11] MEDS: THIAMINE HCL 100 MG, FOLIC ACID 1 MG in NORMAL SALINE 250 ML IV SCH (09:56)
[2019-05-11] MEDS: VANCOMYCIN HCL 1,500 MG in DEXTROSE 5%-WATER 250 ML IV SCH ×2 (09:56→17:40)
--- NOTE | 2019-05-11 09:56 | RADIOLOGY REPORT (SQ) ---
EXAM DESCRIPTION: CHEST SINGLE VIEW COMPLETED DATE/TIME: 05/11/2019 9:44 am REASON FOR STUDY: pneumonia COMPARISON: AP view of the chest from 05/08/2019. EXAM PARAMETERS: NUMBER OF VIEWS: One view. TECHNIQUE: Single frontal radiographic view of the chest acquired. RADIATION DOSE: NA LIMITATIONS: None. FINDINGS: LUNGS AND PLEURA: Low inspiratory lung volumes an eccentric left basilar opacity that obsc ures the contour of the left hemidiaphragm and blunts the left lateral costophrenic sulcus. There is no pneumothorax. MEDIASTINUM AND HILAR STRUCTURES: Stable mediastinal and hilar contours. HEART AND VASCULAR STRUCTURES: The cardiac silhouette is enlarged. The pulmonary vasculature is with in normal limits. BONES: No acute findings. HARDWARE: The enteric tube is no longer in place. OTHER: No other finding. IMPRESSION: Low inspiratory lung volumes and an asymmetric opacity in the left base that could repre sent a combination of pleural fluid, atelectasis, and in the proper clinical setting consolidation. TECHNICAL DOCUMENTATION: JOB ID: [id number] [employer]- All Rights Reserved Reading location - IP/workstation name: [email or web address]
[2019-05-11] MEDS: PIPERACILLIN SODIUM/TAZOBACTAM 3.375 GM in NORMAL SALINE 100 ML IV SCH ×2 (11:25→17:42)
--- NOTE | 2019-05-11 11:25 | PDOC PROGRESS REPORT ---
Subjective Progress Note for:: 05/11/19 Subjective:: Sedated. No apparent distress. Reason For Visit: ACUTE SIGMOID DIVERTICULITIS WITH MICROPERFORATION Physical Exam Vital Signs: Temp Pulse Resp BP Pulse Ox 101 F H 97 19 128/90 H 97 05/11/19 08:00 05/11/19 10:00 05/11/19 10:00 05/11/19 10:00 05/11/19 10:00 Intake & Output 05/10/19 05/11/19 05/12/19 06:59 06:59 06:59 Intake Total 2800 3295 69 Output Total 2265 2896 0 Balance 535 399 69 Weight 101.7 kg 100.9 kg General appearance: PRESENT: no acute distress, other - Deeply sedated Respiratory exam: PRESENT: clear to auscultation willian Cardiovascular exam: PRESENT: RRR GI/Abdominal exam: PRESENT: other - Soft, mildly distended, wound with slight drainage but no erythema. Widely spaced bharti intact. Clifford drain was partially pulled out and nonfunctional therefore completely removed. Ostomy is pink with a little bit of air in the bag. Results Laboratory Results: 05/11/19 08:17 05/11/19 08:17 05/11/19 05/11/19 08:17 08:17 WBC 14.7 H RBC 4.20 L Hgb 13.0 L Hct 38.0 MCV 90 MCH 31.0 MCHC 34.3 RDW 14.1 H Plt Count 478 H Seg Neutrophils % Not Reportable Sodium 135.6 L Potassium 4.0 Chloride 102 Carbon Dioxide 27 Anion Gap 7 BUN 14 Creatinine 0.82 Est GFR ( Amer) > 60 Glucose 122 H Calcium 8.0 L 05/05/19 01:40 Blood Blood Culture - Final Staphylococcus Epidermidis Impressions: Abdomen/Pelvis CT 05/04/19 23:58 IMPRESSION: 1. Acute sigmoid diverticulitis with microperforation. 2. No drainable abscess at this time. Chest X-Ray 05/11/19 08:54 IMPRESSION: Low inspiratory lung volumes and an asymmetric opacity in the left base that could represent a combination of pleural fluid, atelectasis, and in the proper clinical setting consolidation. Assessment & Plan - Diagnosis (1) Diverticulitis of intestine with perforation without abscess Qualifiers: Diverticulitis site: large intestine Diverticulitis bleeding: unspecified bleeding status Qualified Code(s): K57.20 - Diverticulitis of large intestine with perforation and abscess without bleeding Is this a current diagnosis for this admission?: Yes Plan: Status post a sigmoid colon resection with end colostomy. Await bowel function. 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 Patient stable cur rently. - Time Time Spent with patient: Less than 15 minutes Level of Care: ICU
[2019-05-12] MEDS: PIPERACILLIN SODIUM/TAZOBACTAM 3.375 GM in NORMAL SALINE 100 ML IV SCH ×5 (00:19→21:28)
[2019-05-12] MEDS: VANCOMYCIN HCL 1,500 MG in DEXTROSE 5%-WATER 250 ML IV SCH ×3 (02:30→17:28)
[2019-05-12] MEDS: DEXTROSE 5%-LACTATED RINGERS 1,000 ML IV PRN (02:34)
[2019-05-12] MEDS: DEXMEDETOMIDINE IN NS 400 MCG/100 ML RTUPB IV PRN ×3 (02:35→18:26)
[2019-05-12 04:32] LABS: HEMOGLOBIN 12.9 g/dL (13.5-17.0); MEAN CORPUSCULAR HEMOGLOBIN 30.7 pg (27.0-33.4); MEAN CORPUSCULAR VOLUME 90 fl (80-97); PLATELET COUNT 516 10^3/uL (150-450); RED BLOOD COUNT 4.21 10^6/uL (4.35-5.55); RED CELL DISTRIBUTION WIDTH 14.3 % (11.5-14.0); WHITE BLOOD COUNT 16.7 10^3/uL (4.0-10.5)
[2019-05-12 04:47] LABS: ANION GAP 6 (5-19); BLOOD UREA NITROGEN 13 mg/dL (7-20); CALCIUM 7.8 mg/dL (8.4-10.2); CARBON DIOXIDE 24 mmol/L (22-30); CHLORIDE 106 mmol/L (98-107); GLUCOSE 123 mg/dL (75-110); POTASSIUM 4.1 mmol/L (3.6-5.0)
[2019-05-12 04:57] LABS: ABSOLUTE LYMPHOCYTES# (MANUAL) 2.2 10^3/uL (0.5-4.7); ABSOLUTE MONOCYTES # (MANUAL) 0.3 10^3/uL (0.1-1.4); BAND NEUTROPHILS % (MANUAL) 1 % (3-5); BASOPHILS % (MANUAL) 0 % (0-2); EOSINOPHILS % (MANUAL) 1 % (0-6); LYMPHOCYTES % (MANUAL) 13 % (13-45); MONOCYTES % (MANUAL) 2 % (3-13); SEGMENTED NEUTROPHILS % (MAN) 83 % (42-78); TOTAL CELLS COUNTED 100
[2019-05-12 04:59] LABS: ANISOCYTOSIS SLIGHT; TEAR DROP CELLS SLIGHT
[2019-05-12 05:03] LABS: PLATELET COMMENT INCREASED
[2019-05-12] MEDS: LORAZEPAM INJ 2 MG/1 ML VIAL IV PRN ×3 (07:02→22:56)
[2019-05-12] MEDS ORDERED: ACETAMINOPHEN 650 MG SUPP.RECT PR PRN (07:36)
[2019-05-12] MEDS ORDERED: FUROSEMIDE INJ/PF 40 MG/4 ML SDV IV ONE (08:00)
--- NOTE | 2019-05-12 09:02 | PDOC PROGRESS REPORT ---
Subjective Progress Note for:: 05/12/19 Subjective:: Critical Care Progress Note. Pt is febrile this am. Remains on precedex drip. Reason For Visit: ACUTE SIGMOID DIVERTICULITIS WITH MICROPERFORATION Physical Exam Vital Signs: Temp Pulse Resp BP Pulse Ox 100.4 F 91 24 H 140/97 H 98 05/12/19 08:00 05/12/19 08:00 05/12/19 08:00 05/12/19 08:00 05/12/19 08:00 Intake & Output 05/11/19 05/12/19 05/13/19 06:59 06:59 06:59 Intake Total 3295 3279 692 Output Total 2896 1480 50 Balance 399 1799 642 Weight 100.9 kg 100.7 kg General appearance: PRESENT: no acute distress, well-nourished, other - sedated Head exam: PRESENT: atraumatic, normocephalic Respiratory exam: PRESENT: clear to auscultation willian, unlabored Cardiovascular exam: PRESENT: RRR GI/Abdominal exam: PRESENT: soft - midline incision bandaged. ostomy. Gentrourinary exam: PRESENT: indwelling catheter Extremities exam: PRESENT: pedal edema Results Laboratory Results: 05/12/19 04:16 05/12/19 04:16 05/11/19 05/12/19 05/12/19 08:17 04:16 04:16 WBC 16.7 H RBC 4.21 L Hgb 12.9 L Hct 38.0 MCV 90 MCH 30.7 MCHC 34.0 RDW 14.3 H Plt Count 516 H Seg Neutrophils % Not Reportable Sodium 135.6 L 136.2 L Potassium 4.0 4.1 Chloride 102 106 Carbon Dioxide 27 24 Anion Gap 7 6 BUN 14 13 Creatinine 0.82 0.88 Est GFR ( Amer) > 60 > 60 Glucose 122 H 123 H Calcium 8.0 L 7.8 L 05/08/19 05:58 Abdomen - Incision Site Gram Stain - Final 05/08/19 05:58 Abdomen - Incision Site Wound Culture - Final No Aerobic Organisms Clostridium Sp.not Perfringens Impressions: Abdomen/Pelvis CT 05/04/19 23:58 IMPRESSION: 1. Acute sigmoid diverticulitis with microperforation. 2. No drainable abscess at this time. Chest X-Ray 05/11/19 08:54 IMPRESSION: Low inspiratory lung volumes and an asymmetric opacity in the left base that could represent a combination of pleural fluid, atelectasis, and in the proper clinical setting consolidation. Assessment & Plan - Diagnosis (1) Diverticulitis of intestine with perforation without abscess Qualifiers: Diverticulitis site: large intestine Diverticulitis bleeding: unspecified bleeding status Qualified Code(s): K57.20 - Diverticulitis of large intestine with perforation and abscess without bleeding Is this a current diagnosis for this admission?: Yes (2) Alcohol withdrawal delirium Is this a current diagnosis for this admission?: Yes (3) Leukocytosis Qualifiers: Leukocytosis type: unspecified Qualified Code(s): D72.829 - Elevated white blood cell count, unspecified Is this a current diagnosis for this admission?: Yes (4) Sepsis Qualifiers: Sepsis type: sepsis due to unspecified organism Sepsis acute organ dysfunction status: without acute organ dysfunction Is this a current diagnosis for this admission?: Yes (5) HCAP (healthcare-associated pneumonia) Is this a current diagnosis for this admission?: Yes - Time Time Spent with patient: 25-34 minutes Total Critical Time (Minutes): 33 Provider Note Provider Note: Assessment: 48 yo man with perforated sigmoid diverticulitis, s/p sigmoidectomy with end colostomy on 05/08, alcohol withdrawal, leukocytosis, probable aspiration PNA Plan: 1. Respiratory:stable on nasal cannula. Wean to RA as tolerated 2. Pulmonary: HCAP. Day 2 vanc and zosyn. 2. CV: HTN. Will give lasix. Will decrease IVF. 3. Surgery:perforated sigmoid diverticulitis, s/p sigmoidectomy with end colostomy on 05/08. Care per surgery 4. ID: peritonitis due to sigmoid perforation. Completed 7 days of cipro and flagyl. HCAP, day 2 vanc and zosyn. Sepsis. Worsening leukocytosis. Will add diflucan. 5. Psych: ETOH withdrawal. Continue precedex. Continue prn ativan. Continue Folic acid and thiamine 6. Nutrition: NPO per surgery 7. Endocrine: accuchecks, SSI 8. Prophylaxis: lovenox Critical care time= 33 min,excluding procedures
[2019-05-12 10:21] LABS: VANCOMYCIN,TROUGH 17.6 ug/mL (5.0-20.0)
[2019-05-12] MEDS: FAMOTIDINE INJ/PF 20 MG/2 ML SDV IV SCH ×2 (11:24→21:29)
[2019-05-12] MEDS: THIAMINE HCL 100 MG, FOLIC ACID 1 MG in NORMAL SALINE 250 ML IV SCH (11:31)
[2019-05-12] MEDS: ENOXAPARIN SODIUM INJ 40 MG/0.4 ML DISP.SYRIN SUBCUT SCH (11:31)
--- NOTE | 2019-05-12 11:35 | PDOC PROGRESS REPORT ---
Subjective Progress Note for:: 05/12/19 Reason For Visit: ACUTE SIGMOID DIVERTICULITIS WITH MICROPERFORATION Physical Exam Vital Signs: Temp Pulse Resp BP Pulse Ox 100.4 F 94 22 H 136/96 H 96 05/12/19 08:00 05/12/19 10:00 05/12/19 10:00 05/12/19 10:00 05/12/19 10:00 Intake & Output 05/11/19 05/12/19 05/13/19 06:59 06:59 06:59 Intake Total 3295 3279 692 Output Total 2896 1480 650 Balance 399 1799 42 Weight 100.9 kg 100.7 kg Results Laboratory Results: 05/12/19 04:16 05/12/19 04:16 05/12/19 05/12/19 04:16 04:16 WBC 16.7 H RBC 4.21 L Hgb 12.9 L Hct 38.0 MCV 90 MCH 30.7 MCHC 34.0 RDW 14.3 H Plt Count 516 H Seg Neutrophils % Not Reportable Sodium 136.2 L Potassium 4.1 Chloride 106 Carbon Dioxide 24 Anion Gap 6 BUN 13 Creatinine 0.88 Est GFR ( Amer) > 60 Glucose 123 H Calcium 7.8 L 05/08/19 05:58 Abdomen - Incision Site Gram Stain - Final 05/08/19 05:58 Abdomen - Incision Site Wound Culture - Final No Aerobic Organisms Clostridium Sp.not Perfringens Impressions: Abdomen/Pelvis CT 05/04/19 23:58 IMPRESSION: 1. Acute sigmoid diverticulitis with microperforation. 2. No drainable abscess at this time. Chest X-Ray 05/11/19 08:54 IMPRESSION: Low inspiratory lung volumes and an asymmetric opacity in the left base that could represent a combination of pleural fluid, atelectasis, and in the proper clinical setting consolidation. Assessment & Plan - Diagnosis (1) Diverticulitis of intestine with perforation without abscess Qualifiers: Diverticulitis site: large intestine Diverticulitis bleeding: unspecified bleeding status Qualified Code(s): K57.20 - Diverticulitis of large intestine with perforation and abscess without bleeding Is this a current diagnosis for this admission?: Yes - Time Time Spent with patient: Less than 15 minutes - Plan Summary Plan Summary: This is a 48-year-old male with severe diverticulitis, requiring Reinoso's procedure. His left lower quadrant colostomy is pink, although it is not particularly productive today. His midline wound is exhibiting some erythema. Several bharti were removed, the wound was explored. There was a small amount of fluid. This fluid was cleaned, and packing was initiated. I will have the nurses pack the open portions of the wound twice daily. Patient is still confused today he believes that he is in [place]. He does recall that he is in the hospital. He is not sure why he is in the hospital. Continue with treatment for alcohol withdrawals, per medical team. Plan to advance diet once colostomy becomes productive. Continue antibiotics.
[2019-05-12] MEDS: FLUCONAZOLE 200 MG/NS RTU 200 MG/100 ML RTUPB IV SCH (11:38)
[2019-05-12] MEDS ORDERED: HYDROMORPHONE HCL INJ/PF 2 MG/ML AMPULE IV PRN (20:34)
[2019-05-12] MEDS: KETOROLAC TROMETHAMINE INJ/PF 30 MG/1 ML SDV IV SCH (21:28)
[2019-05-12] MEDS: MORPHINE SULFATE 10 MG/ML INJ IV PRN (22:56)
[2019-05-13] MEDS: VANCOMYCIN HCL 1,500 MG in DEXTROSE 5%-WATER 250 ML IV SCH ×3 (02:45→17:18)
[2019-05-13] MEDS: LORAZEPAM INJ 2 MG/1 ML VIAL IV PRN ×2 (03:05→12:17)
[2019-05-13] MEDS: PIPERACILLIN SODIUM/TAZOBACTAM 3.375 GM in NORMAL SALINE 100 ML IV SCH ×4 (03:45→21:16)
[2019-05-13] MEDS: DEXMEDETOMIDINE IN NS 400 MCG/100 ML RTUPB IV PRN ×3 (03:59→20:43)
[2019-05-13 04:58] LABS: HEMATOCRIT 34.6 % (37.9-51.0); HEMOGLOBIN 11.8 g/dL (13.5-17.0); MEAN CORPUSCULAR HGB CONC 34.2 g/dL (32.0-36.0); MEAN CORPUSCULAR VOLUME 91 fl (80-97); PLATELET COUNT 488 10^3/uL (150-450); RED BLOOD COUNT 3.82 10^6/uL (4.35-5.55); RED CELL DISTRIBUTION WIDTH 14.4 % (11.5-14.0); WHITE BLOOD COUNT 13.6 10^3/uL (4.0-10.5)
[2019-05-13 05:12] LABS: ANION GAP 6 (5-19); BLOOD UREA NITROGEN 15 mg/dL (7-20); CALCIUM 7.8 mg/dL (8.4-10.2); CARBON DIOXIDE 25 mmol/L (22-30); CHLORIDE 105 mmol/L (98-107); GLUCOSE 135 mg/dL (75-110); POTASSIUM 3.9 mmol/L (3.6-5.0)
[2019-05-13 05:29] LABS: ABSOLUTE LYMPHOCYTES# (MANUAL) 1.9 10^3/uL (0.5-4.7); BAND NEUTROPHILS % (MANUAL) 2 % (3-5); BASOPHILS % (MANUAL) 0 % (0-2); EOSINOPHILS % (MANUAL) 1 % (0-6); LYMPHOCYTES % (MANUAL) 14 % (13-45); MONOCYTES % (MANUAL) 7 % (3-13); SEGMENTED NEUTROPHILS % (MAN) 76 % (42-78); TOTAL CELLS COUNTED 100
[2019-05-13 05:30] LABS: PLATELET COMMENT INCREASED; RBC MORPHOLOGY COMMENT NORMO-CYTIC/CHROMIC; TOXIC VACUOLATION PRESENT
[2019-05-13] MEDS: KETOROLAC TROMETHAMINE INJ/PF 30 MG/1 ML SDV IV SCH ×3 (06:24→21:17)
--- NOTE | 2019-05-13 09:05 | PDOC PROGRESS REPORT ---
Subjective Progress Note for:: 05/13/19 Subjective:: Critical Care Progress Note. Pt remains on precedex. Several episodes of agitation overnight. Reason For Visit: ACUTE SIGMOID DIVERTICULITIS WITH MICROPERFORATION Physical Exam Vital Signs: Temp Pulse Resp BP Pulse Ox 97.3 F 63 12 144/90 H 100 05/13/19 08:00 05/13/19 08:00 05/13/19 08:00 05/13/19 08:00 05/13/19 08:00 Intake & Output 05/12/19 05/13/19 05/14/19 06:59 06:59 06:59 Intake Total 3529 2304 100 Output Total 1480 3620 200 Balance 2049 -1316 -100 Weight 100.7 kg 97.8 kg General appearance: PRESENT: no acute distress, well-developed, well-nourished Head exam: PRESENT: atraumatic, normocephalic Respiratory exam: PRESENT: clear to auscultation willian, unlabored Cardiovascular exam: PRESENT: RRR GI/Abdominal exam: PRESENT: soft, other - midline incision, bandaged. Ostomy in place. Extremities exam: PRESENT: other - edema Musculoskeletal exam: PRESENT: normal inspection Psychiatric exam: PRESENT: other - calm, on precedex drip Results Laboratory Results: 05/13/19 04:26 05/13/19 04:26 05/13/19 05/13/19 04:26 04:26 WBC 13.6 H RBC 3.82 L Hgb 11.8 L Hct 34.6 L MCV 91 MCH 31.0 MCHC 34.2 RDW 14.4 H Plt Count 488 H Seg Neutrophils % Not Reportable Sodium 135.6 L Potassium 3.9 Chloride 105 Carbon Dioxide 25 Anion Gap 6 BUN 15 Creatinine 0.92 Est GFR ( Amer) > 60 Glucose 135 H Calcium 7.8 L Impressions: Abdomen/Pelvis CT 05/04/19 23:58 IMPRESSION: 1. Acute sigmoid diverticulitis with microperforation. 2. No drainable abscess at this time. Chest X-Ray 05/11/19 08:54 IMPRESSION: Low inspiratory lung volumes and an asymmetric opacity in the left base that could represent a combination of pleural fluid, atelectasis, and in the proper clinical setting consolidation. Assessment & Plan - Diagnosis (1) Diverticulitis of intestine with perforation without abscess Qualifiers: Diverticulitis site: large intestine Diverticulitis bleeding: unspecified bleeding status Qualified Code(s): K57.20 - Diverticulitis of large intestine with perforation and abscess without bleeding Is this a current diagnosis for this admission?: Yes (2) Alcohol withdrawal delirium Is this a current diagnosis for this admission?: Yes (3) Leukocytosis Qualifiers: Leukocytosis type: unspecified Qualified Code(s): D72.829 - Elevated white blood cell count, unspecified Is this a current diagnosis for this admission?: Yes (4) Sepsis Qualifiers: Sepsis type: sepsis due to unspecified organism Sepsis acute organ dysfunction status: without acute organ dysfunction Is this a current diagnosis for this admission?: Yes (5) HCAP (healthcare-associated pneumonia) Is this a current diagnosis for this admission?: Yes - Time Time Spent with patient: 15-24 minutes Provider Note Provider Note: Assessment: 48 yo man with perforated sigmoid diverticulitis, s/p sigmoidectomy with end colostomy on 05/08, alcohol withdrawal, leukocytosis, probable aspiration PNA Plan: 1. Respiratory:stable on nasal cannula. Wean to RA as tolerated 2. Pulmonary: HCAP. Day 3 vanc and zosyn. 2. CV: HTN and tachycardia. Continue lasix. Start IV lopressor 3. Surgery:perforated sigmoid diverticulitis, s/p sigmoidectomy with end colostomy on 05/08. Care per surgery 4. ID: peritonitis due to sigmoid perforation. Completed 7 days of cipro and flagyl. HCAP, day 3 vanc and zosyn. Day 2 Diflucan. Sepsis. Decreasing leukocytosis. 5. Psych: ETOH withdrawal. Continue precedex. Continue prn ativan. Continue Fo lic acid and thiamine 6. Nutrition: NPO per surgery 7. Endocrine: accuchecks, SSI 8. Prophylaxis: lovenox
--- NOTE | 2019-05-13 09:19 | PDOC CRITICAL CARE PROG REPORT ---
General Reason for ICU Addmission:: Post-op monitoring, alcohol withdrawal. Physical Exam Vital Signs: Temp Pulse Resp BP Pulse Ox 97.3 F 63 12 144/90 H 100 05/13/19 08:00 05/13/19 08:00 05/13/19 08:00 05/13/19 08:00 05/13/19 08:00 Intake & Output 05/11/19 05/12/19 05/13/19 11:59 11:59 11:59 Intake Total 2462 3693 1578 Output Total 2296 2130 3170 Balance 166 1563 -1592 Weight 100.9 kg 100.7 kg 97.8 kg Weight/Height Weight 97.8 kg Height 5 ft 11 in Laboratory/Radiographs Laboratory Results: 05/13/19 04:26 05/13/19 04:26 05/13/19 05/13/19 04:26 04:26 WBC 13.6 H RBC 3.82 L Hgb 11.8 L Hct 34.6 L MCV 91 MCH 31.0 MCHC 34.2 RDW 14.4 H Plt Count 488 H Seg Neutrophils % Not Reportable Sodium 135.6 L Potassium 3.9 Chloride 105 Carbon Dioxide 25 Anion Gap 6 BUN 15 Creatinine 0.92 Est GFR ( Amer) > 60 Glucose 135 H Calcium 7.8 L Impressions: Abdomen/Pelvis CT 05/04/19 23:58 IMPRESSION: 1. Acute sigmoid diverticulitis with microperforation. 2. No drainable abscess at this time. Chest X-Ray 05/11/19 08:54 IMPRESSION: Low inspiratory lung volumes and an asymmetric opacity in the left base that could represent a combination of pleural fluid, atelectasis, and in the proper clinical setting consolidation. Critical Time -: 1. The care of a critical patient is a dynamic process. This note is a hospital insurance representative synopsis but static in nature. The timeframe for treatments given in order is not necessary the actual time these treatments may have been done. 2. This patient requires critical care secondary to ongoing requirements for therapy not offered or safe outside the critical care environment. Transfer to a lower level of care with altered life or limb morbidity and mortality. 3. Multidisciplinary rounds completed. 4. ABCDE bundle addressed.
[2019-05-13] MEDS: METOPROLOL TARTRATE PF/INJ 5 MG/5 ML SDV IV SCH ×4 (09:45→23:15)
[2019-05-13] MEDS: FLUCONAZOLE 200 MG/NS RTU 200 MG/100 ML RTUPB IV SCH (09:46)
[2019-05-13] MEDS: THIAMINE HCL 100 MG, FOLIC ACID 1 MG in NORMAL SALINE 250 ML IV SCH (09:47)
[2019-05-13] MEDS: FAMOTIDINE INJ/PF 20 MG/2 ML SDV IV SCH ×2 (09:47→21:18)
[2019-05-13] MEDS: MORPHINE SULFATE 10 MG/ML INJ IV PRN ×2 (09:48→14:10)
[2019-05-13] MEDS: FUROSEMIDE INJ/PF 40 MG/4 ML SDV IV SCH ×2 (09:48→21:18)
[2019-05-13] MEDS: ENOXAPARIN SODIUM INJ 40 MG/0.4 ML DISP.SYRIN SUBCUT SCH (09:49)
--- NOTE | 2019-05-13 14:12 | PDOC PROGRESS REPORT ---
Subjective Progress Note for:: 05/13/19 Subjective:: Awake somewhat confused but cooperative. Reason For Visit: ACUTE SIGMOID DIVERTICULITIS WITH MICROPERFORATION Physical Exam Vital Signs: Temp Pulse Resp BP Pulse Ox 98.0 F 86 16 166/117 H 99 05/13/19 12:00 05/13/19 12:00 05/13/19 12:00 05/13/19 12:00 05/13/19 12:00 Intake & Output 05/12/19 05/13/19 05/14/19 06:59 06:59 06:59 Intake Total 3529 2304 801.2 Output Total 1480 3620 1530 Balance 2049 -1316 -728.8 Weight 100.7 kg 97.8 kg 97.8 kg General appearance: PRESENT: no acute distress, cooperative Respiratory exam: PRESENT: clear to auscultation willian Cardiovascular exam: PRESENT: RRR GI/Abdominal exam: PRESENT: other - Soft, nondistended, minimal tenderness. Ostomy is beginning to function with some output and air. At the midline incision bharti are widely spaced there is 2 open spots that appears fairly clean there was some slight erythema inferior to the open area and therefore another staple was removed and this area was probed and no pus identified. The fascia is intact underlying. Neurological exam: PRESENT: awake Results Laboratory Results: 05/13/19 04:26 05/13/19 04:26 05/13/19 05/13/19 04:26 04:26 WBC 13.6 H RBC 3.82 L Hgb 11.8 L Hct 34.6 L MCV 91 MCH 31.0 MCHC 34.2 RDW 14.4 H Plt Count 488 H Seg Neutrophils % Not Reportable Sodium 135.6 L Potassium 3.9 Chloride 105 Carbon Dioxide 25 Anion Gap 6 BUN 15 Creatinine 0.92 Est GFR ( Amer) > 60 Glucose 135 H Calcium 7.8 L Impressions: Abdomen/Pelvis CT 05/04/19 23:58 IMPRESSION: 1. Acute sigmoid diverticulitis with microperforation. 2. No drainable abscess at this time. Chest X-Ray 05/11/19 08:54 IMPRESSION: Low inspiratory lung volumes and an asymmetric opacity in the left base that could represent a combination of pleural fluid, atelectasis, and in the proper clinical setting consolidation. Assessment & Plan - Diagnosis (1) Diverticulitis of intestine with perforation without abscess Qualifiers: Diverticulitis site: large intestine Diverticulitis bleeding: unspecified bleeding status Qualified Code(s): K57.20 - Diverticulitis of large intestine with perforation and abscess without bleeding Is this a current diagnosis for this admission?: Yes Plan: Patient looks much better. Ostomy beginning to function. Suspect that his mental status will clear sufficiently for him to be started on a diet tomorrow. Hopefully we can get the patient ambulating soon. (2) Wound infection after surgery Is this a current diagnosis for this admission?: Yes Plan: Very mild. No evidence of fascial dehiscence. We will continue local wound care with packing. - Time Time Spent with patient: Less than 15 minutes Level of Care: ICU
[2019-05-13] MEDS ORDERED: HALOPERIDOL LACTATE INJ 5 MG/1 ML VIAL IV PRN (15:31)
[2019-05-13] MEDS: DEXTROSE 5%-LACTATED RINGERS 1,000 ML IV PRN (17:18)
[2019-05-14] MEDS: PIPERACILLIN SODIUM/TAZOBACTAM 3.375 GM in NORMAL SALINE 100 ML IV SCH ×4 (02:11→21:24)
[2019-05-14] MEDS: VANCOMYCIN HCL 1,500 MG in DEXTROSE 5%-WATER 250 ML IV SCH ×3 (02:11→18:22)
[2019-05-14] MEDS: DEXMEDETOMIDINE IN NS 400 MCG/100 ML RTUPB IV PRN (02:17)
[2019-05-14 04:29] LABS: ABSOLUTE BASOPHILS # (AUTO) 0.1 10^3/uL (0.0-0.2); ABSOLUTE EOSINOPHILS # (AUTO) 0.3 10^3/uL (0.0-0.6); ABSOLUTE LYMPHOCYTES (AUTO) 1.4 10^3/uL (0.5-4.7); ABSOLUTE MONOCYTES (AUTO) 0.6 10^3/uL (0.1-1.4); ABSOLUTE NEUT (AUTO) 9.2 10^3/uL (1.7-8.2); BASOPHILS % (AUTO) 0.5 % (0-2); EOSINOPHILS % (AUTO) 2.7 % (0-6); HEMATOCRIT 35.3 % (37.9-51.0); HEMOGLOBIN 12.3 g/dL (13.5-17.0); LYMPHOCYTES % (AUTO) 11.8 % (13-45); MEAN CORPUSCULAR HEMOGLOBIN 31.5 pg (27.0-33.4); MEAN CORPUSCULAR VOLUME 90 fl (80-97); MONOCYTES % (AUTO) 5.2 % (3-13); PLATELET COUNT 570 10^3/uL (150-450); RED BLOOD COUNT 3.92 10^6/uL (4.35-5.55); RED CELL DISTRIBUTION WIDTH 14.3 % (11.5-14.0); SEGMENTED NEUTROPHILS % (AUTO) 79.8 % (42-78); TOTAL CELLS COUNTED % (AUTO) 100 %; WHITE BLOOD COUNT 11.6 10^3/uL (4.0-10.5)
[2019-05-14 04:45] LABS: BLOOD UREA NITROGEN 14 mg/dL (7-20); CALCIUM 8.2 mg/dL (8.4-10.2); GLUCOSE 125 mg/dL (75-110)
[2019-05-14 04:56] LABS: CARBON DIOXIDE 27 mmol/L (22-30); CHLORIDE 102 mmol/L (98-107); POTASSIUM 3.9 mmol/L (3.6-5.0)
[2019-05-14 05:05] LABS: ANION GAP 6 (5-19)
[2019-05-14] MEDS: KETOROLAC TROMETHAMINE INJ/PF 30 MG/1 ML SDV IV SCH ×3 (05:39→21:25)
[2019-05-14] MEDS: METOPROLOL TARTRATE PF/INJ 5 MG/5 ML SDV IV SCH ×3 (05:39→13:39)
--- NOTE | 2019-05-14 09:05 | PDOC PROGRESS REPORT ---
Subjective Progress Note for:: 05/14/19 Subjective:: Critical Care Progress Note Pt remains on precedex but is calm and coherent this am. Reason For Visit: ACUTE SIGMOID DIVERTICULITIS WITH MICROPERFORATION Physical Exam Vital Signs: Temp Pulse Resp BP Pulse Ox 98.4 F 74 12 157/107 H 99 05/14/19 06:00 05/13/19 20:00 05/13/19 18:00 05/13/19 18:00 05/13/19 18:00 Intake & Output 05/13/19 05/14/19 05/15/19 06:59 06:59 06:59 Intake Total 2709 1618.2 76 Output Total 3620 4725 Balance -911 -3106.8 76 Weight 97.8 kg 94.4 kg General appearance: PRESENT: no acute distress, well-developed, well-nourished Respiratory exam: PRESENT: clear to auscultation willian Cardiovascular exam: PRESENT: RRR GI/Abdominal exam: PRESENT: other - midline incision bandaged, ostomy in place. Gentrourinary exam: PRESENT: indwelling catheter Extremities exam: PRESENT: pedal edema Neurological exam: PRESENT: alert, awake Results Laboratory Results: 05/14/19 04:11 05/14/19 04:11 05/14/19 05/14/19 04:11 04:11 WBC 11.6 H RBC 3.92 L Hgb 12.3 L Hct 35.3 L MCV 90 MCH 31.5 MCHC 35.0 RDW 14.3 H Plt Count 570 H Seg Neutrophils % 79.8 H Sodium 134.5 L Potassium 3.9 Chloride 102 Carbon Dioxide 27 Anion Gap 6 BUN 14 Creatinine 1.01 Est GFR ( Amer) > 60 Glucose 125 H Calcium 8.2 L Impressions: Abdomen/Pelvis CT 05/04/19 23:58 IMPRESSION: 1. Acute sigmoid diverticulitis with microperforation. 2. No drainable abscess at this time. Chest X-Ray 05/11/19 08:54 IMPRESSION: Low inspiratory lung volumes and an asymmetric opacity in the left base that could represent a combination of pleural fluid, atelectasis, and in the proper clinical setting consolidation. Assessment & Plan - Diagnosis (1) Diverticulitis of intestine with perforation without abscess Qualifiers: Diverticulitis site: large intestine Diverticulitis bleeding: unspecified bleeding status Qualified Code(s): K57.20 - Diverticulitis of large intestine with perforation and abscess without bleeding Is this a current diagnosis for this admission?: Yes (2) Alcohol withdrawal delirium Is this a current diagnosis for this admission?: Yes (3) Leukocytosis Qualifiers: Leukocytosis type: unspecified Qualified Code(s): D72.829 - Elevated white blood cell count, unspecified Is this a current diagnosis for this admission?: Yes (4) Sepsis Qualifiers: Sepsis type: sepsis due to unspecified organism Sepsis acute organ dysfunction status: without acute organ dysfunction Is this a current diagnosis for this admission?: Yes (5) HCAP (healthcare-associated pneumonia) Is this a current diagnosis for this admission?: Yes - Time Time Spent with patient: 25-34 minutes Level of Care: ICU - Plan Summary Plan Summary: Assessment: 48 yo man with perforated sigmoid diverticulitis, s/p sigmoidectomy with end colostomy on 05/08, alcohol withdrawal, leukocytosis,HCAP Plan: 1. Respiratory:stable on nasal cannula. Wean to RA as tolerated 2. Pulmonary: HCAP. Day 4 vanc and zosyn. 2. CV: HTN and tachycardia. Continue lasix. Increase IV lopressor to 10 mg IV q4. 3. Surgery:perforated sigmoid diverticulitis, s/p sigmoidectomy with end colostomy on 05/08. Care per surgery 4. ID: peritonitis due to sigmoid perforation. Completed 7 days of cipro and flagyl. HCAP, day 4 vanc and zosyn. Day 3 Diflucan. Sepsis. Decreasing leukocytosis. 5. Psych: ETOH withdrawal. Goal is to d/c precedex today. Continue prn ativan and haldol. Continue Folic acid and thiamine 6. Nutrition: NPO per surgery 7. Endocrine: accuchecks, SSI 8. Prophylaxis: lovenox 9. Consult PT. OOB TC. Ambulate pt
--- NOTE | 2019-05-14 10:27 | PDOC PROGRESS REPORT ---
Subjective Progress Note for:: 05/14/19 Subjective:: More alert and oriented and cooperative Reason For Visit: ACUTE SIGMOID DIVERTICULITIS WITH MICROPERFORATION Physical Exam Vital Signs: Temp Pulse Resp BP Pulse Ox 98.4 F 74 12 157/107 H 99 05/14/19 06:00 05/13/19 20:00 05/13/19 18:00 05/13/19 18:00 05/13/19 18:00 Intake & Output 05/13/19 05/14/19 05/15/19 06:59 06:59 06:59 Intake Total 2709 1618.2 76 Output Total 3620 4725 475 Balance -911 -3106.8 -399 Weight 97.8 kg 94.4 kg Exam: Colostomy functioning well. Incision site looks clean 3 areas with saline soaked dressings were checked and no abscess or any gross drainage noted. Instructed nurses to continue with wet-to-dry saline dressings along the 3 small areas open on the skin incision site. Results Laboratory Results: 05/14/19 04:11 05/14/19 04:11 05/14/19 05/14/19 04:11 04:11 WBC 11.6 H RBC 3.92 L Hgb 12.3 L Hct 35.3 L MCV 90 MCH 31.5 MCHC 35.0 RDW 14.3 H Plt Count 570 H Seg Neutrophils % 79.8 H Sodium 134.5 L Potassium 3.9 Chloride 102 Carbon Dioxide 27 Anion Gap 6 BUN 14 Creatinine 1.01 Est GFR ( Amer) > 60 Glucose 125 H Calcium 8.2 L Impressions: Abdomen/Pelvis CT 05/04/19 23:58 IMPRESSION: 1. Acute sigmoid diverticulitis with microperforation. 2. No drainable abscess at this time. Chest X-Ray 05/11/19 08:54 IMPRESSION: Low inspiratory lung volumes and an asymmetric opacity in the left base that could represent a combination of pleural fluid, atelectasis, and in the proper clinical setting consolidation. Assessment & Plan - Diagnosis (1) Diverticulitis of intestine with perforation without abscess Qualifiers: Diverticulitis site: large intestine Diverticulitis bleeding: unspecified bleeding status Qualified Code(s): K57.20 - Diverticulitis of large intestine with perforation and abscess without bleeding Is this a current diagnosis for this admission?: Yes - Time Time Spent with patient: 15-24 minutes Level of Care: ICU Anticipated discharge: Home Within: within 72 hours - Inpatient Certification Medical Necessity: Need Close Monitoring Due to Risk of Patient Decompensation, Need For IV Fluids, Need for IV Antibiotics - Plan Summary Plan Summary: To be weaned from Precedex today Possible transfer to IMCU today or tomorrow and start on clears Continue IV antibiotics for the next 48 to 72 hours
[2019-05-14] MEDS: THIAMINE HCL 100 MG, FOLIC ACID 1 MG in NORMAL SALINE 250 ML IV SCH (10:57)
[2019-05-14] MEDS: FLUCONAZOLE 200 MG/NS RTU 200 MG/100 ML RTUPB IV SCH (10:59)
[2019-05-14] MEDS: ENOXAPARIN SODIUM INJ 40 MG/0.4 ML DISP.SYRIN SUBCUT SCH (11:04)
[2019-05-14] MEDS: FUROSEMIDE INJ/PF 40 MG/4 ML SDV IV SCH ×2 (11:05→21:26)
[2019-05-14] MEDS: FAMOTIDINE INJ/PF 20 MG/2 ML SDV IV SCH (11:06)
[2019-05-14] MEDS: MORPHINE SULFATE 10 MG/ML INJ IV PRN ×2 (11:06→23:17)
[2019-05-14] MEDS ORDERED: FAMOTIDINE 20 MG TABLET PO SCH (22:00)
[2019-05-14] MEDS ORDERED: METOPROLOL TARTRATE 25 MG TABLET PO SCH (22:00)
[2019-05-15] MEDS: PIPERACILLIN SODIUM/TAZOBACTAM 3.375 GM in NORMAL SALINE 100 ML IV SCH (02:16)
[2019-05-15] MEDS: VANCOMYCIN HCL 1,500 MG in DEXTROSE 5%-WATER 250 ML IV SCH (02:16)
[2019-05-15 04:18] LABS: ABSOLUTE BASOPHILS # (AUTO) 0.1 10^3/uL (0.0-0.2); ABSOLUTE EOSINOPHILS # (AUTO) 0.2 10^3/uL (0.0-0.6); ABSOLUTE LYMPHOCYTES (AUTO) 1.8 10^3/uL (0.5-4.7); ABSOLUTE MONOCYTES (AUTO) 0.9 10^3/uL (0.1-1.4); ABSOLUTE NEUT (AUTO) 9.3 10^3/uL (1.7-8.2); BASOPHILS % (AUTO) 1.2 % (0-2); EOSINOPHILS % (AUTO) 1.8 % (0-6); HEMATOCRIT 34.1 % (37.9-51.0); HEMOGLOBIN 11.7 g/dL (13.5-17.0); LYMPHOCYTES % (AUTO) 14.7 % (13-45); MEAN CORPUSCULAR HEMOGLOBIN 31.1 pg (27.0-33.4); MEAN CORPUSCULAR HGB CONC 34.4 g/dL (32.0-36.0); MEAN CORPUSCULAR VOLUME 91 fl (80-97); MONOCYTES % (AUTO) 7.5 % (3-13); PLATELET COUNT 738 10^3/uL (150-450); RED BLOOD COUNT 3.77 10^6/uL (4.35-5.55); RED CELL DISTRIBUTION WIDTH 14.6 % (11.5-14.0); SEGMENTED NEUTROPHILS % (AUTO) 74.8 % (42-78); TOTAL CELLS COUNTED % (AUTO) 100 %; WHITE BLOOD COUNT 12.5 10^3/uL (4.0-10.5)
[2019-05-15 04:36] LABS: ANION GAP 9 (5-19); BLOOD UREA NITROGEN 17 mg/dL (7-20); CALCIUM 8.2 mg/dL (8.4-10.2); CARBON DIOXIDE 26 mmol/L (22-30); CHLORIDE 103 mmol/L (98-107); GLUCOSE 133 mg/dL (75-110); POTASSIUM 4.2 mmol/L (3.6-5.0)
[2019-05-15] MEDS: KETOROLAC TROMETHAMINE INJ/PF 30 MG/1 ML SDV IV SCH (06:44)
[2019-05-15] MEDS: FLUCONAZOLE 200 MG/NS RTU 200 MG/100 ML RTUPB IV SCH (09:28)
[2019-05-15] MEDS: FAMOTIDINE 20 MG TABLET PO SCH (09:29)
[2019-05-15] MEDS: ACETAMINOPHEN 325 MG TABLET PO PRN (09:29)
[2019-05-15] MEDS: MULTIVITAMIN TABLET PO SCH (09:29)
[2019-05-15] MEDS: FOLIC ACID 1 MG TABLET PO SCH (09:30)
[2019-05-15] MEDS: METOPROLOL TARTRATE 50 MG TABLET PO SCH ×2 (09:30→21:12)
[2019-05-15] MEDS: THIAMINE HCL 100 MG TABLET PO SCH (09:32)
--- NOTE | 2019-05-15 09:52 | PDOC PROGRESS REPORT ---
Subjective Progress Note for:: 05/15/19 Subjective:: Critical Care Progress Note. Pt had no acute overnight events. Wants to be transferred out of the ICU so he "can get some rest". Reason For Visit: ACUTE SIGMOID DIVERTICULITIS WITH MICROPERFORATION Physical Exam Vital Signs: Temp Pulse Resp BP Pulse Ox 99.7 F 88 17 156/92 H 96 05/15/19 08:00 05/15/19 08:00 05/15/19 08:00 05/15/19 08:00 05/15/19 08:00 Intake & Output 05/14/19 05/15/19 05/16/19 06:59 06:59 05:59 Intake Total 1868.2 4001 Output Total 4725 4820 Balance -2856.8 -819 Weight 94.4 kg General appearance: PRESENT: no acute distress, well-developed, well-nourished Respiratory exam: PRESENT: decreased breath sounds, unlabored Cardiovascular exam: PRESENT: RRR GI/Abdominal exam: PRESENT: other - ostomy in place Musculoskeletal exam: PRESENT: normal inspection Neurological exam: PRESENT: alert, awake Results Laboratory Results: 05/15/19 03:48 05/15/19 03:48 05/15/19 05/15/19 03:48 03:48 WBC 12.5 H RBC 3.77 L Hgb 11.7 L Hct 34.1 L MCV 91 MCH 31.1 MCHC 34.4 RDW 14.6 H Plt Count 738 H Seg Neutrophils % 74.8 Sodium 138.3 Potassium 4.2 Chloride 103 Carbon Dioxide 26 Anion Gap 9 BUN 17 Creatinine 1.73 H Est GFR ( Amer) 51 L Glucose 133 H Calcium 8.2 L Impressions: Abdomen/Pelvis CT 05/04/19 23:58 IMPRESSION: 1. Acute sigmoid diverticulitis with microperforation. 2. No drainable abscess at this time. Chest X-Ray 05/11/19 08:54 IMPRESSION: Low inspiratory lung volumes and an asymmetric opacity in the left base that could represent a combination of pleural fluid, atelectasis, and in the proper clinical setting consolidation. Assessment & Plan - Diagnosis (1) Diverticulitis of intestine with perforation without abscess Qualifiers: Diverticulitis site: large intestine Diverticulitis bleeding: unspecified bleeding status Qualified Code(s): K57.20 - Diverticulitis of large intestine with perforation and abscess without bleeding Is this a current diagnosis for this admission?: Yes (2) Alcohol withdrawal delirium Is this a current diagnosis for this admission?: Yes (3) Leukocytosis Qualifiers: Leukocytosis type: unspecified Qualified Code(s): D72.829 - Elevated white blood cell count, unspecified Is this a current diagnosis for this admission?: Yes (4) Sepsis Qualifiers: Sepsis type: sepsis due to unspecified organism Sepsis acute organ dysfunction status: without acute organ dysfunction Is this a current diagnosis for this admission?: Yes (5) HCAP (healthcare-associated pneumonia) Is this a current diagnosis for this admission?: Yes - Time Time Spent with patient: 25-34 minutes Level of Care: ICU Provider Note Provider Note: Assessment: 48 yo man with perforated sigmoid diverticulitis, s/p sigmoidectomy with end colostomy on 05/08, alcohol withdrawal, leukocytosis,HCAP,JOSE Plan: 1. Respiratory:stable on RA 2. Pulmonary: HCAP. Day 5 vanc and zosyn. 2. CV: HTN and tachycardia. Increase lopressor to 50 mg po BID. Will d/c lasix due to JOSE 3. Surgery:perforated sigmoid diverticulitis, s/p sigmoidectomy with end colostomy on 05/08. Care per surgery 4. ID: peritonitis due to sigmoid perforation. Completed 7 days of cipro and flagyl. HCAP, day 5 vanc and zosyn. Day 4 Diflucan. Sepsis. Cultures negative. Will d/c vanc in the setting of his JOSE. Will adjust dose os zosyn 5. Renal: JOSE. Cr has increased to 1.73. Will d/c lasix. Will d/c vanc. Renally dose meds 5. Psych: ETOH withdrawal,resolved. Off precedex Continue prn ativan. Continue Folic acid and thiamine 6. Nutrition: clear liquid diet per surgery 7. Endocrine: accuchecks, SSI 8. Prophylaxis: sq heparin 9. Consult PT. OOB TC. Ambulate pt 10. Disposition: stable for transfer out of ICU
[2019-05-15] MEDS: PIPERACILLIN SODIUM/TAZOBACTAM 2.25 GM in NORMAL SALINE 50 ML IV SCH ×2 (12:35→18:08)
--- NOTE | 2019-05-15 17:50 | PDOC PROGRESS REPORT ---
Subjective Progress Note for:: 05/15/19 Reason For Visit: ACUTE SIGMOID DIVERTICULITIS WITH MICROPERFORATION Physical Exam Vital Signs: Temp Pulse Resp BP Pulse Ox 98.4 F 77 14 153/106 H 96 05/15/19 14:00 05/15/19 14:00 05/15/19 14:00 05/15/19 14:00 05/15/19 14:00 Intake & Output 05/14/19 05/15/19 05/16/19 06:59 06:59 05:59 Intake Total 1868.2 4001 650 Output Total 4725 4820 550 Balance -2856.8 -819 100 Weight 94.4 kg 90.9 kg 90.9 kg General appearance: PRESENT: no acute distress, cooperative. ABSENT: disheveled Head exam: PRESENT: atraumatic, normocephalic Eye exam: PRESENT: EOMI, PERRLA. ABSENT: scleral icterus Mouth exam: PRESENT: moist, neck supple Neck exam: ABSENT: tenderness, thyromegaly, tracheal deviation, tracheostomy Respiratory exam: PRESENT: unlabored. ABSENT: tachypnea, wheezes Cardiovascular exam: PRESENT: RRR GI/Abdominal exam: PRESENT: soft, other - Colostomy is pink and productive. ABSENT: distended, tenderness Rectal exam: PRESENT: deferred Extremities exam: ABSENT: clubbing Musculoskeletal exam: ABSENT: deformity Neurological exam: PRESENT: alert, awake, oriented to person, oriented to place, oriented to time, oriented to situation, CN II-XII grossly intact Psychiatric exam: ABSENT: agitated, anxious, depressed Focused psych exam: ABSENT: delusional Skin exam: ABSENT: cyanosis, erythema, jaundice Results Laboratory Results: 05/15/19 03:48 05/15/19 03:48 05/15/19 05/15/19 03:48 03:48 WBC 12.5 H RBC 3.77 L Hgb 11.7 L Hct 34.1 L MCV 91 MCH 31.1 MCHC 34.4 RDW 14.6 H Plt Count 738 H Seg Neutrophils % 74.8 Sodium 138.3 Potassium 4.2 Chloride 103 Carbon Dioxide 26 Anion Gap 9 BUN 17 Creatinine 1.73 H Est GFR ( Amer) 51 L Glucose 133 H Calcium 8.2 L Impressions: Abdomen/Pelvis CT 05/04/19 23:58 IMPRESSION: 1. Acute sigmoid diverticulitis with microperforation. 2. No drainable abscess at this time. Chest X-Ray 05/11/19 08:54 IMPRESSION: Low inspiratory lung volumes and an asymmetric opacity in the left base that could represent a combination of pleural fluid, atelectasis, and in the proper clinical setting consolidation. Assessment & Plan - Diagnosis (1) Diverticulitis of intestine with perforation without abscess Qualifiers: Diverticulitis site: large intestine Diverticulitis bleeding: unspecified bleeding status Qualified Code(s): K57.20 - Diverticulitis of large intestine with perforation and abscess without bleeding Is this a current diagnosis for this admission?: Yes (2) Alcohol withdrawal delirium Is this a current diagnosis for this admission?: Yes (3) Sepsis Qualifiers: Sepsis type: sepsis due to unspecified organism Sepsis acute organ dysfunction status: without acute organ dysfunction Is this a current diagnosis for this admission?: Yes - Time Time Spent with patient: Less than 15 minutes - Plan Summary Plan Summary: This is a 48-year-old male status post Reinoso's procedure for perforated diverticulitis. The patient is doing much better today. He is awake and alert. He converses normally. He has no evidence of confusion. He is tolerating liquids well. I will advance his diet. I recommended he get out of bed and ambulate. Continue with packing to the midline wound. Plan for transfer upstairs when bed available. Repeat labs tomorrow.
[2019-05-16] MEDS: PIPERACILLIN SODIUM/TAZOBACTAM 2.25 GM in NORMAL SALINE 50 ML IV SCH ×2 (00:16→08:46)
[2019-05-16] MEDS ORDERED: LORAZEPAM INJ 2 MG/1 ML VIAL ONE (00:45)
[2019-05-16] MEDS: LORAZEPAM INJ 2 MG/1 ML VIAL IV PRN (00:47)
[2019-05-16] MEDS: ONDANSETRON HCL INJ/PF 4 MG/2 ML SDV IV PRN (00:48)
[2019-05-16 04:20] LABS: ABSOLUTE BASOPHILS # (AUTO) 0.1 10^3/uL (0.0-0.2); ABSOLUTE EOSINOPHILS # (AUTO) 0.2 10^3/uL (0.0-0.6); ABSOLUTE LYMPHOCYTES (AUTO) 1.3 10^3/uL (0.5-4.7); ABSOLUTE MONOCYTES (AUTO) 0.9 10^3/uL (0.1-1.4); ABSOLUTE NEUT (AUTO) 10.5 10^3/uL (1.7-8.2); BASOPHILS % (AUTO) 1.1 % (0-2); EOSINOPHILS % (AUTO) 1.6 % (0-6); HEMATOCRIT 32.2 % (37.9-51.0); HEMOGLOBIN 11.1 g/dL (13.5-17.0); LYMPHOCYTES % (AUTO) 10.2 % (13-45); MEAN CORPUSCULAR HEMOGLOBIN 31.4 pg (27.0-33.4); MEAN CORPUSCULAR HGB CONC 34.5 g/dL (32.0-36.0); MEAN CORPUSCULAR VOLUME 91 fl (80-97); MONOCYTES % (AUTO) 6.6 % (3-13); PLATELET COUNT 806 10^3/uL (150-450); RED BLOOD COUNT 3.54 10^6/uL (4.35-5.55); RED CELL DISTRIBUTION WIDTH 14.6 % (11.5-14.0); SEGMENTED NEUTROPHILS % (AUTO) 80.5 % (42-78); TOTAL CELLS COUNTED % (AUTO) 100 %
[2019-05-16 04:35] LABS: ANION GAP 10 (5-19); BLOOD UREA NITROGEN 17 mg/dL (7-20); CALCIUM 8.6 mg/dL (8.4-10.2); CARBON DIOXIDE 24 mmol/L (22-30); CHLORIDE 105 mmol/L (98-107); GLUCOSE 97 mg/dL (75-110); POTASSIUM 4.6 mmol/L (3.6-5.0)
--- NOTE | 2019-05-16 08:12 | PDOC PROGRESS REPORT ---
Subjective Progress Note for:: 05/16/19 Subjective:: Critical Care Progress Note. Pt remains in ICU awaiting transfer to a telemetry bed. Had no acute overnight events and has no complaints. Reason For Visit: ACUTE SIGMOID DIVERTICULITIS WITH MICROPERFORATION Physical Exam Vital Signs: Temp Pulse Resp BP Pulse Ox 98 F 81 14 153/106 H 96 05/16/19 03:51 05/15/19 20:00 05/15/19 14:00 05/15/19 14:00 05/15/19 14:00 Intake & Output 05/15/19 05/16/19 05/17/19 07:59 06:59 06:59 Intake Total Output Total Balance Weight General appearance: PRESENT: no acute distress, well-developed, well-nourished Respiratory exam: PRESENT: clear to auscultation willian, unlabored Cardiovascular exam: PRESENT: RRR GI/Abdominal exam: PRESENT: soft, other - ostomy in place Musculoskeletal exam: PRESENT: normal inspection Results Laboratory Results: 05/16/19 03:50 05/16/19 03:50 05/16/19 05/16/19 03:50 03:50 WBC 13.0 H RBC 3.54 L Hgb 11.1 L Hct 32.2 L MCV 91 MCH 31.4 MCHC 34.5 RDW 14.6 H Plt Count 806 H Seg Neutrophils % 80.5 H Sodium 139.2 Potassium 4.6 Chloride 105 Carbon Dioxide 24 Anion Gap 10 BUN 17 Creatinine 1.97 H Est GFR ( Amer) 44 L Glucose 97 Calcium 8.6 Impressions: Abdomen/Pelvis CT 05/04/19 23:58 IMPRESSION: 1. Acute sigmoid diverticulitis with microperforation. 2. No drainable abscess at this time. Chest X-Ray 05/11/19 08:54 IMPRESSION: Low inspiratory lung volumes and an asymmetric opacity in the left base that could represent a combination of pleural fluid, atelectasis, and in the proper clinical setting consolidation. Assessment & Plan - Diagnosis (1) Diverticulitis of intestine with perforation without abscess Qualifiers: Diverticulitis site: large intestine Diverticulitis bleeding: unspecified bleeding status Qualified Code(s): K57.20 - Diverticulitis of large intestine with perforation and abscess without bleeding Is this a current diagnosis for this admission?: Yes (2) Alcohol withdrawal delirium Is this a current diagnosis for this admission?: Yes (3) Leukocytosis Qualifiers: Leukocytosis type: unspecified Qualified Code(s): D72.829 - Elevated white blood cell count, unspecified Is this a current diagnosis for this admission?: Yes (4) Sepsis Qualifiers: Sepsis type: sepsis due to unspecified organism Sepsis acute organ dy sfunction status: without acute organ dysfunction Is this a current diagnosis for this admission?: Yes (5) HCAP (healthcare-associated pneumonia) Is this a current diagnosis for this admission?: Yes - Time Time Spent with patient: 25-34 minutes Level of Care: ICU Provider Note Provider Note: Assessment: 48 yo man with perforated sigmoid diverticulitis, s/p sigmoidectomy with end colostomy on 05/08, alcohol withdrawal, leukocytosis,HCAP,JOSE Plan: 1. Respiratory:stable on RA 2. Pulmonary: HCAP. ATBX Day 6. Vanc d/c yesterday. Will d/c zosyn due to JOSE. and start cefepime. 2. CV: heart rate and BP acceptable. Continue lopressor. 3. Surgery:perforated sigmoid diverticulitis, s/p sigmoidectomy with end colostomy on 05/08. Care per surgery 4. ID: peritonitis due to sigmoid perforation. Completed 7 days of cipro and flagyl. HCAP, Day 6 of ATBX. Vanc d/c yesterday due JOSE. Will d/c zosyn and start cefepime. Day 5 Diflucan. Sepsis. Cultures negative. WBC remains elevated. Will repeat cultures. 5. Renal: JOSE. Cr has increased to 1.97. Vanc d/c yesterday. Vanc trough elevated. Will d/c zosyn. Will start IVF. Will order UA. Will order renal US. Needs renal consult tmw. 5. Psych: ETOH withdrawal,resolved. Continue prn ativan. Continue Folic acid and thiamine 6. Nutrition: clear liquid diet per surgery 7. Endocrine: accuchecks, SSI 8. Prophylaxis: sq heparin 9. Consult PT. OOB TC. Ambulate pt 10. Disposition: awaiting transfer to telemetry bed.
[2019-05-16] MEDS: FLUCONAZOLE 200 MG/NS RTU 200 MG/100 ML RTUPB IV SCH (09:00)
[2019-05-16] MEDS: MULTIVITAMIN TABLET PO SCH (09:01)
[2019-05-16] MEDS: FAMOTIDINE 20 MG TABLET PO SCH (09:01)
[2019-05-16] MEDS: METOPROLOL TARTRATE 50 MG TABLET PO SCH ×2 (09:01→21:32)
[2019-05-16] MEDS: THIAMINE HCL 100 MG TABLET PO SCH (09:01)
[2019-05-16] MEDS: FOLIC ACID 1 MG TABLET PO SCH (09:01)
[2019-05-16] MEDS: CEFEPIME 2 GM/D5W RTU 2 GM/50 ML RTUPB IV SCH (09:02)
--- NOTE | 2019-05-16 09:03 | RADIOLOGY REPORT (SQ) ---
EXAM DESCRIPTION: U/S RETROPERITON (RENAL/AORTA) COMPLETED DATE/TIME: 05/16/2019 8:49 am REASON FOR STUDY: JOSE COMPARISON: CT from April. TECHNIQUE: Dynamic and static grayscale images acquired of the kidneys and bladder and recorded on P ACS. Additional selected color Doppler and spectral images recorded. LIMITATIONS: None. FINDINGS: RIGHT KIDNEY: Normal size. Normal echogenicity. No solid or suspicious masses. No hydronep hrosis. No calcifications. LEFT KIDNEY: Normal size. Normal echogenicity. No solid or suspicious masses. Large cysts projectin g off the lower pole as seen on CT. This measures close to 10 cm. No hydronephrosis. No calcificati ons. BLADDER: Not assessed due to external dressings blocking acoustical window. OTHER FINDINGS: No other significant finding. IMPRESSION: No evidence of urinary tract obstruction. Known sizable left renal cyst. TECHNICAL DOCUMENTATION: JOB ID: [id number] [employer]- All Rights Reserved Reading location - IP/workstation name: [email or web address]
[2019-05-16] MEDS: NORMAL SALINE 1000 ML 1,000 ML IV PRN ×2 (10:46→21:33)
[2019-05-16] MEDS: ACETAMINOPHEN 325 MG TABLET PO PRN ×2 (10:53→16:06)
[2019-05-16 11:38] LABS: APPEARANCE,URINE CLEAR; BILIRUBIN,URINE NEGATIVE (NEGATIVE); COLOR,URINE YELLOW; GLUCOSE, URINE NEGATIVE (NEGATIVE); KETONES,URINE NEGATIVE (NEGATIVE); PROTEIN,URINE NEGATIVE (NEGATIVE); URINE SPECIFIC GRAVITY 1.009; UROBILINOGEN,URINE NEGATIVE mg/dL (<2.0)
[2019-05-16] MEDS: MORPHINE SULFATE 10 MG/ML INJ IV PRN ×2 (13:43→21:32)
--- NOTE | 2019-05-16 18:21 | PDOC PROGRESS REPORT ---
Subjective Progress Note for:: 05/16/19 Subjective:: Feels better today Reason For Visit: ACUTE SIGMOID DIVERTICULITIS WITH MICROPERFORATION Physical Exam Vital Signs: Temp Pulse Resp BP Pulse Ox 99.1 F 75 14 153/106 H 96 05/16/19 12:00 05/16/19 08:00 05/15/19 14:00 05/15/19 14:00 05/15/19 14:00 Intake & Output 05/15/19 05/16/19 05/17/19 07:59 06:59 06:59 Intake Total 300 Output Total 675 Balance -375 Weight Exam: Abdomen is soft with minimal tenderness. Incision starting to [place] along parially opened areas. no drainage. Colostomy functioning Results Laboratory Results: 05/16/19 03:50 05/16/19 03:50 05/16/19 05/16/19 05/16/19 03:50 03:50 11:05 WBC 13.0 H RBC 3.54 L Hgb 11.1 L Hct 32.2 L MCV 91 MCH 31.4 MCHC 34.5 RDW 14.6 H Plt Count 806 H Seg Neutrophils % 80.5 H Sodium 139.2 Potassium 4.6 Chloride 105 Carbon Dioxide 24 Anion Gap 10 BUN 17 Creatinine 1.97 H Est GFR ( Amer) 44 L Glucose 97 Calcium 8.6 Urine Color YELLOW Urine Appearance CLEAR Urine pH 6.0 Ur Specific [place] 1.009 Urine Protein NEGATIVE Urine Glucose (UA) NEGATIVE Urine Ketones NEGATIVE Urine Blood SMALL H Urine RBC (Auto) 0 05/11/19 11:34 Blood Blood Culture - Final NO GROWTH IN 5 DAYS 05/11/19 10:46 Blood Blood Culture - Final NO GROWTH IN 5 DAYS Impressions: Abdomen/Pelvis CT 05/04/19 23:58 IMPRESSION: 1. Acute sigmoid diverticulitis with microperforation. 2. No drainable abscess at this time. Chest X-Ray 05/11/19 08:54 IMPRESSION: Low inspiratory lung volumes and an asymmetric opacity in the left base that could represent a combination of pleural fluid, atelectasis, and in the proper clinical setting consolidation. Renal Ultrasound 05/16/19 00:00 IMPRESSION: No evidence of urinary tract obstruction. Known sizable left renal cyst. Assessment & Plan - Diagnosis (1) Diverticulitis of intestine with perforation without abscess Qualifiers: Diverticulitis site: large intestine Diverticulitis bleeding: unspecified bleeding status Qualified Code(s): K57.20 - Diverticulitis of large intestine with perforation and abscess without bleeding Is this a current diagnosis for this admission?: Yes - Time Time Spent with patient: 15-24 minutes - Inpatient Certification Medical Necessity: Need Close Monitoring Due to Risk of Patient Decompensation, Need For IV Fluids - Plan Summary Plan Summary: POD #8 post Luke's procedure for perforated diverticulitis Plans: His Creatinine is creeping up. Agree with Technical Agronomist to stopped IV antibiotics, Hydrate and obtain renal consult. Gradually increase po intake
[2019-05-16] MEDS ORDERED: METOPROLOL TARTRATE 50 MG TABLET PO ONE (23:45)
[2019-05-17] MEDS: MORPHINE SULFATE 10 MG/ML INJ IV PRN ×2 (01:23→06:53)
[2019-05-17] MEDS: ACETAMINOPHEN 325 MG TABLET PO PRN ×3 (03:11→18:41)
[2019-05-17 06:11] LABS: ABSOLUTE BASOPHILS # (AUTO) 0.1 10^3/uL (0.0-0.2); ABSOLUTE EOSINOPHILS # (AUTO) 0.3 10^3/uL (0.0-0.6); ABSOLUTE LYMPHOCYTES (AUTO) 1.2 10^3/uL (0.5-4.7); ABSOLUTE MONOCYTES (AUTO) 0.9 10^3/uL (0.1-1.4); ABSOLUTE NEUT (AUTO) 11.3 10^3/uL (1.7-8.2); BASOPHILS % (AUTO) 0.8 % (0-2); EOSINOPHILS % (AUTO) 1.8 % (0-6); HEMOGLOBIN 10.7 g/dL (13.5-17.0); LYMPHOCYTES % (AUTO) 8.6 % (13-45); MEAN CORPUSCULAR HEMOGLOBIN 31.3 pg (27.0-33.4); MEAN CORPUSCULAR HGB CONC 34.6 g/dL (32.0-36.0); MEAN CORPUSCULAR VOLUME 90 fl (80-97); MONOCYTES % (AUTO) 6.7 % (3-13); PLATELET COUNT 882 10^3/uL (150-450); RED BLOOD COUNT 3.42 10^6/uL (4.35-5.55); RED CELL DISTRIBUTION WIDTH 14.4 % (11.5-14.0); SEGMENTED NEUTROPHILS % (AUTO) 82.1 % (42-78); TOTAL CELLS COUNTED % (AUTO) 100 %; WHITE BLOOD COUNT 13.8 10^3/uL (4.0-10.5)
[2019-05-17 06:28] LABS: ANION GAP 8 (5-19); BLOOD UREA NITROGEN 17 mg/dL (7-20); CALCIUM 8.4 mg/dL (8.4-10.2); CARBON DIOXIDE 23 mmol/L (22-30); CHLORIDE 103 mmol/L (98-107); GLUCOSE 112 mg/dL (75-110); POTASSIUM 4.9 mmol/L (3.6-5.0)
[2019-05-17] MEDS: CEFEPIME 2 GM/D5W RTU 2 GM/50 ML RTUPB IV SCH (09:21)
[2019-05-17] MEDS: METOPROLOL TARTRATE 50 MG TABLET PO SCH ×2 (09:21→21:34)
[2019-05-17] MEDS: FOLIC ACID 1 MG TABLET PO SCH (09:21)
[2019-05-17] MEDS: FAMOTIDINE 20 MG TABLET PO SCH (09:21)
[2019-05-17] MEDS: MULTIVITAMIN TABLET PO SCH (09:21)
--- NOTE | 2019-05-17 09:53 | PDOC PROGRESS REPORT ---
Subjective Progress Note for:: 05/17/19 Subjective:: Patient up ambulating with physical therapy, tolerating a diet. Colostomy functioning satisfactorily. Reason For Visit: ACUTE SIGMOID DIVERTICULITIS WITH MICROPERFORATION Physical Exam Vital Signs: Temp Pulse Resp BP Pulse Ox 98.0 F 76 19 156/93 H 95 05/17/19 08:09 05/17/19 08:09 05/17/19 08:09 05/17/19 08:09 05/17/19 08:09 Intake & Output 05/16/19 05/17/19 05/18/19 06:59 06:59 06:59 Intake Total 1097 Output Total 975 Balance 122 Weight 92.5 kg General appearance: PRESENT: no acute distress GI/Abdominal exam: PRESENT: other - Abdomen is soft. [place] intact. No ev idence of active drainage. Colostomy viable, pink with stool in bag. Results Laboratory Results: 05/17/19 05:42 05/17/19 05:42 05/16/19 05/17/19 05/17/19 11:05 05:42 05:42 WBC 13.8 H RBC 3.42 L Hgb 10.7 L Hct 31.0 L MCV 90 MCH 31.3 MCHC 34.6 RDW 14.4 H Plt Count 882 H Seg Neutrophils % 82.1 H Sodium 133.7 L Potassium 4.9 Chloride 103 Carbon Dioxide 23 Anion Gap 8 BUN 17 Creatinine 1.76 H Est GFR ( Amer) 50 L Glucose 112 H Calcium 8.4 Urine Color YELLOW Urine Appearance CLEAR Urine pH 6.0 Ur Specific [place] 1.009 Urine Protein NEGATIVE Urine Glucose (UA) NEGATIVE Urine Ketones NEGATIVE Urine Blood SMALL H Urine RBC (Auto) 0 05/11/19 11:34 Blood Blood Culture - Final NO GROWTH IN 5 DAYS 05/11/19 10:46 Blood Blood Culture - Final NO GROWTH IN 5 DAYS Impressions: Abdomen/Pelvis CT 05/04/19 23:58 IMPRESSION: 1. Acute sigmoid diverticulitis with microperforation. 2. No drainable abscess at this time. Chest X-Ray 05/11/19 08:54 IMPRESSION: Low inspiratory lung volumes and an asymmetric opacity in the left base that could represent a combination of pleural fluid, atelectasis, and in the proper clinical setting consolidation. Renal Ultrasound 05/16/19 00:00 IMPRESSION: No evidence of urinary tract obstruction. Known sizable left renal cyst. Assessment & Plan - Diagnosis (1) Diverticulitis of intestine with perforation without abscess Qualifiers: Diverticulitis site: large intestine Diverticulitis bleeding: unspecified bleeding status Qualified Code(s): K57.20 - Diverticulitis of large intestine with perforation and abscess without bleeding Is this a current diagnosis for this admission?: Yes Plan: Impression: Patient is 9 days status post exploratory laparotomy, sigmoid colectomy, colostomy for perforated diverticulitis, post alcohol withdrawal, now tolerating a diet ostomy functioning no evidence of sepsis; low-grade leukocytosis; patient remains on cefepime and Diflucan, with blood cultures negative. Recommendations: 1. Continue recovery efforts with physical therapy 2. We will discuss rationale for ongoing antimicrobial therapy 3. Get discharge planning involved; patient may require short stay at SNF (2) Alcohol withdrawal delirium Is this a current diagnosis for this admission?: Yes - Time Time Spent with patient: 15-24 minutes Smoking Cessation Education: over 10 minutes Anticipated discharge: Home
[2019-05-17] MEDS: THIAMINE HCL 100 MG TABLET PO SCH (10:31)
[2019-05-17] MEDS: FLUCONAZOLE 200 MG/NS RTU 200 MG/100 ML RTUPB IV SCH (10:31)
--- NOTE | 2019-05-17 12:35 | PDOC CONSULTATION ---
Consultation Consult Date: 05/17/19 Attending physician:: TACHO DELANEY Provider Consulted: PAMELA ROMERO JR Consult reason:: elevated renal functions and duration of antibiotics History of Present Illness Admission Date/PCP: 05/05/19 01:44 DEB ESTRADA NP History of Present Illness: MICHAEL BROWNING is a 48 year old male who was admitted to the hospital on 05/05/2019 with lower abdominal pain. Patient also had nausea, diarrhea, fever and chills. CT scan of the abdomen revealed sigmoid diverticulitis with microperforation. According to the CT scan report there is no drainable abscess on admission, patient has never had diverticulitis in the past. She was placed on IV antibiotics and on 1025 underwent a exploratory laparotomy with sigmoid resection with distal sigmoid stump and proximal sigmoid colostomy. This was secondary to a perforated acute diverticulitis. Patient was originally admitted to the ICU for sepsis and alcohol withdrawal. In the unit patient appeared to become septic with a white count of 15,500 tachycardic and tachypneic. Surgery was consulted and patient went to the OR for the above procedure. Past Medical History Cardiac Medical History: Reports: Hypertension Pulmonary Medical History: Reports: None Endocrine Medical History: Reports: Other Renal/ Medical History: Reports: Other - Gout Psychiatric Medical History: Reports: Alcohol Dependency Denies: Depression Past Surgical History Past Surgical History: Reports: Herniorrhaphy - as a child Social History Lives with: Family Smoking Status: Former Smoker Frequency of Alcohol Use: Occasional Hx Recreational Drug Use: No Drugs: None Hx Prescription Drug Abuse: No - Advance Directive Resuscitation Status: Full Code Family History Family History: Reviewed & Not Pertinent Parental Family History Reviewed: No Children Family History Reviewed: No Sibling(s) Family History Reviewed.: No Medication/Allergy Home Medications: Amlodipine Besylate [Norvasc 2.5 mg Tablet] 2.5 mg PO DAILY 05/05/19 Losartan Potassium [Cozaar 100 mg Tablet] 100 mg PO DAILY 05/05/19 Omeprazole Magnesium [Prilosec Otc] 20 mg PO DAILY 05/05/19 Allergies/Adverse Reactions: No Known Allergies Allergy (Verified 05/04/19 23:25) Review of Systems Constitutional: ABSENT: chills, fever(s), headache(s), weight gain, weight loss Cardiovascular: ABSENT: chest pain, dyspnea on exertion, edema, orthropnea, palpitations Respiratory: ABSENT: cough, hemoptysis Genitourinary: ABSENT: dysuria, hematuria Physical Exam Vital Signs: Temp Pulse Resp BP Pulse Ox 98.0 F 76 19 156/93 H 95 05/17/19 08:09 05/17/19 08:09 05/17/19 08:09 05/17/19 08:09 05/17/19 08:09 Intake & Output 05/16/19 05/17/19 05/18/19 06:59 06:59 06:59 Intake Total 1097 50 Output Total 975 Balance 122 50 Weight 92.5 kg General appearance: PRESENT: no acute distress, other - Patient is lying in bed and voices no complaints Respiratory exam: PRESENT: clear to auscultation willian. ABSENT: rales, rhonchi, wheezes Cardiovascular exam: PRESENT: RRR. ABSENT: diastolic murmur, rubs, systolic murmur GI/Abdominal exam: PRESENT: soft Neurological exam: PRESENT: alert, awake, oriented to person, oriented to place, oriented to time, oriented to situation, CN II-XII grossly intact. ABSENT: motor sensory deficit Psychiatric exam: PRESENT: appropriate affect, normal mood. ABSENT: homicidal ideation, suicidal ideation Results Laboratory Results: 05/17/19 05:42 05/17/19 05:42 05/17/19 05/17/19 05:42 05:42 WBC 13.8 H RBC 3.42 L Hgb 10.7 L Hct 31.0 L MCV 90 MCH 31.3 MCHC 34.6 RDW 14.4 H Plt Count 882 H Seg Neutrophils % 82.1 H Sodium 133.7 L Potassium 4.9 Chloride 103 Carbon Dioxide 23 Anion Gap 8 BUN 17 Creatinine 1.76 H Est GFR ( Amer) 50 L Glucose 112 H Calcium 8.4 05/11/19 11:34 Blood Blood Culture - Final NO GROWTH IN 5 DAYS 05/11/19 10:46 Blood Blood Culture - Final NO GROWTH IN 5 DAYS Impressions: Abdomen/Pelvis CT 05/04/19 23:58 IMPRESSION: 1. Acute sigmoid diverticulitis with microperforation. 2. No drainable abscess at this time. Chest X-Ray 05/11/19 08:54 IMPRESSION: Low inspiratory lung volumes and an asymmetric opacity in the left base that could represent a combination of pleural fluid, atelectasis, and in the proper clinical setting consolidation. Renal Ultrasound 05/16/19 00:00 IMPRESSION: No evidence of urinary tract obstruction. Known sizable left renal cyst. Assessment and Plan - Diagnosis (2) Alcohol abuse Is this a current diagnosis for this admission?: Yes (3) Hypertension Is this a current diagnosis for this admission?: Yes (4) JOSE (acute kidney injury) Is this a current diagnosis for this admission?: Yes (5) Leukocytosis Qualifiers: Leukocytosis type: unspecified Qualified Code(s): D72.829 - Elevated white blood cell count, unspecified Is this a current diagnosis for this admission?: Yes - Plan Summary Summary: 05/17/2019 We were consulted concerning ration of antibiotics and acute kidney injury.. patient's renal function when he was admitted his BUN was 14 it has gone up as high as 32 and now it is down to 17. When patient was admitted his creatinine was 2.04 it has gone up to 3.0 it is now 1.76. Patient had a renal ultrasound on 05 16 that showed no urinary tract obstruction. He is currently receiving normal saline at 60 mL's per hour. I feel like patient simply needs to increase his IV fluids to 150 an hour and this will be done. With gentle hydration he should not have any further problems. Concerning patient's antibiotics I reviewed the chart carefully especially the instrument checker note from 05/16/2019 concerning antibiotics. Patient originally had 7 days of Cipro and Flagyl , then was switched to vancomycin and Zosyn and is now on cefepime. I have called microbiology to confirm the reports that are in the chart. Patient shows negative blood cultures now on multiple occasions. The only positive one was on admission and that was staph epidermidis a contaminant. The wound grew out a species of Clostridium which was not perfringens. Patient grew out only one isolated colony, which is very rare. This to me would not warrant any further treatment. Also in reviewing patient's white count, patient came in at 17,200, it went down to 8800, and now is back up to 13.8. He is afebrile and does not appear to be septic. Also at this point DC the cefepime, as he is 9 days postop. I also currently do not see any indication for the Diflucan's this will be discontinued as well. This was originally started May 12 for possible sepsis, and is no longer necessary. We will follow daily labs with you. I have discussed this with the patient. Per the patient he may be going home in the next several days. - Time Time Spent with patient: 35 or more minutes
[2019-05-17] MEDS ORDERED: NORMAL SALINE 1000 ML 1,000 ML IV PRN (12:36)
[2019-05-17 14:28] LABS: ABSOLUTE BASOPHILS # (AUTO) 0.1 10^3/uL (0.0-0.2); ABSOLUTE EOSINOPHILS # (AUTO) 0.3 10^3/uL (0.0-0.6); ABSOLUTE LYMPHOCYTES (AUTO) 1.4 10^3/uL (0.5-4.7); ABSOLUTE MONOCYTES (AUTO) 1.1 10^3/uL (0.1-1.4); ABSOLUTE NEUT (AUTO) 10.1 10^3/uL (1.7-8.2); BASOPHILS % (AUTO) 0.9 % (0-2); EOSINOPHILS % (AUTO) 1.9 % (0-6); HEMATOCRIT 32.3 % (37.9-51.0); HEMOGLOBIN 10.9 g/dL (13.5-17.0); LYMPHOCYTES % (AUTO) 10.8 % (13-45); MEAN CORPUSCULAR HEMOGLOBIN 30.7 pg (27.0-33.4); MEAN CORPUSCULAR HGB CONC 33.8 g/dL (32.0-36.0); MEAN CORPUSCULAR VOLUME 91 fl (80-97); MONOCYTES % (AUTO) 8.8 % (3-13); PLATELET COUNT 892 10^3/uL (150-450); RED BLOOD COUNT 3.55 10^6/uL (4.35-5.55); RED CELL DISTRIBUTION WIDTH 14.6 % (11.5-14.0); SEGMENTED NEUTROPHILS % (AUTO) 77.6 % (42-78); TOTAL CELLS COUNTED % (AUTO) 100 %
[2019-05-17 14:45] LABS: ANION GAP 7 (5-19); BLOOD UREA NITROGEN 16 mg/dL (7-20); CALCIUM 8.5 mg/dL (8.4-10.2); CARBON DIOXIDE 23 mmol/L (22-30); CHLORIDE 104 mmol/L (98-107); GLUCOSE 103 mg/dL (75-110); POTASSIUM 4.7 mmol/L (3.6-5.0)
[2019-05-17] MEDS: ONDANSETRON HCL INJ/PF 4 MG/2 ML SDV IV PRN (19:55)
[2019-05-18] MEDS: MORPHINE SULFATE 10 MG/ML INJ IV PRN (06:24)
[2019-05-18] MEDS: ONDANSETRON HCL INJ/PF 4 MG/2 ML SDV IV PRN ×2 (06:25→15:21)
[2019-05-18] MEDS: FOLIC ACID 1 MG TABLET PO SCH (09:17)
[2019-05-18] MEDS: METOPROLOL TARTRATE 50 MG TABLET PO SCH ×2 (09:17→21:16)
[2019-05-18] MEDS: FAMOTIDINE 20 MG TABLET PO SCH (09:17)
[2019-05-18] MEDS: THIAMINE HCL 100 MG TABLET PO SCH (09:17)
[2019-05-18] MEDS: MULTIVITAMIN TABLET PO SCH (09:17)
--- NOTE | 2019-05-18 12:12 | PDOC PROGRESS REPORT ---
Subjective Progress Note for:: 05/18/19 Subjective:: Patient seen in follow-up regarding consult for acute kidney injury and antibiotics. Patient states that he currently feels some heartburn which has been going on since before patient. Still says that he feels nauseated with decreased appetite. Denies any decrease in urinary output. Denies any back pain. Has some abdominal tenderness and pain around the site of the surgery. Denies any fever. Reason For Visit: ACUTE SIGMOID DIVERTICULITIS WITH MICROPERFORATION Physical Exam Vital Signs: Temp Pulse Resp BP Pulse Ox 98.3 F 73 18 158/95 H 95 05/18/19 08:34 05/18/19 08:34 05/18/19 08:34 05/18/19 08:34 05/18/19 08:34 Intake & Output 05/17/19 05/18/19 05/19/19 06:59 06:59 06:59 Intake Total 1097 1624 Output Total 975 2950 Balance 122 -1326 Weight 92.5 kg 93.7 kg General appearance: PRESENT: no acute distress, cooperative Head exam: PRESENT: normocephalic Eye exam: PRESENT: EOMI Ear exam: PRESENT: normal external ear exam Mouth exam: PRESENT: moist Neck exam: ABSENT: JVD, tracheal deviation Respiratory exam: PRESENT: clear to auscultation willian Cardiovascular exam: PRESENT: RRR, +S1, +S2 Pulses: PRESENT: normal dorsalis pedis pul Vascular exam: PRESENT: normal capillary refill GI/Abdominal exam: PRESENT: normal bowel sounds, tenderness. ABSENT: ascites, firm, guarding, rigid, soft Rectal exam: PRESENT: deferred Extremities exam: ABSENT: calf tenderness Neurological exam: PRESENT: alert, awake, oriented to person, oriented to place, oriented to time, oriented to situation Psychiatric exam: ABSENT: agitated Skin exam: PRESENT: dry, intact, warm. ABSENT: cyanosis, rash Results Laboratory Results: 05/17/19 14:11 05/17/19 14:11 05/17/19 05/17/19 14:11 14:11 WBC 13.0 H RBC 3.55 L Hgb 10.9 L Hct 32.3 L MCV 91 MCH 30.7 MCHC 33.8 RDW 14.6 H Plt Count 892 H Seg Neutrophils % 77.6 Sodium 133.6 L Potassium 4.7 Chloride 104 Carbon Dioxide 23 Anion Gap 7 BUN 16 Creatinine 1.59 H Est GFR ( Amer) 56 L Glucose 103 Calcium 8.5 Impressions: Abdomen/Pelvis CT 05/04/19 23:58 IMPRESSION: 1. Acute sigmoid diverticulitis with microperforation. 2. No drainable abscess at this time. Chest X-Ray 05/11/19 08:54 IMPRESSION: Low inspiratory lung volumes and an asymmetric opacity in the left base that could represent a combination of pleural fluid, atelectasis, and in the proper clinical setting consolidation. Renal Ultrasound 05/16/19 00:00 IMPRESSION: No evidence of urinary tract obstruction. Known sizable left renal cyst. Assessment and Plan - Diagnosis (1) JOSE (acute kidney injury) Is this a current diagnosis for this admission?: Yes Plan: Patient's creatinine seems to be trending down with IV fluids and patient has good urinary output Ultrasound reviewed without evidence of hydronephrosis or postrenal obstruction Will recommend continuation of IV fluids Please recheck BMP to trend creatinine (2) Diverticulitis of intestine with perforation without abscess Qualifiers: Diverticulitis site: large intestine Diverticulitis bleeding: unspecified bleeding status Qualified Code(s): K57.20 - Diverticulitis of large intestine with perforation and abscess without bleeding Is this a current diagnosis for this admission?: Yes Plan: Status post OR with resection and placement colostomy Seems to have completed required duration of antibiotics Currently vitals are stable,, blood cultures negative. Can continue to monitor off antibiotics. (3) Alcohol abuse Is this a current diagnosis for this admission?: Yes Plan: Does not seem to be actively withdrawing (4) Hypertension Is this a current diagnosis for this admission?: Yes Plan: Patient's blood pressure has mildly uncontrolled currently. I noted that patient was on treatment 2.5 mg of amlodipine daily and the 100 mg of losartan daily at home. Given JOSE would recommend continuing to hold losartan as of now but to restart amlodipine 5 mg daily and uptitrate to 10 mg daily if BP continues to run high. (5) Leukocytosis Qualifiers: Leukocytosis type: unspecified Qualified Code(s): D72.829 - Elevated white blood cell count, unspecified Is this a current diagnosis for this admission?: Yes Plan: Stable. Will follow up labs to monitor. (6) Heartburn Is this a current diagnosis for this admission?: Yes Plan: Currently on Pepcid We will also recommend giving Maalox to see if any improvement - Plan Summary Summary: 05/17/2019 We were consulted concerning ration of antibiotics and acute kidney injury.. patient's renal function when he was admitted his BUN was 14 it has gone up as high as 32 and now it is down to 17. When patient was admitted his creatinine was 2.04 it has gone up to 3.0 it is now 1.76. Patient had a renal ultrasound on 05 16 that showed no urinary tract obstruction. He is currently receiving normal saline at 60 mL's per hour. I feel like patient simply needs to increase his IV fluids to 150 an hour and this will be done. With gentle hydration he should not have any further problems. Concerning patient's antibiotics I reviewed the chart carefully especially the hemstitcher note from 05/16/2019 concerning antibiotics. Patient originally had 7 days of Cipro and Flagyl , then was switched to vancomycin and Zosyn and is now on cefepime. I have called microbiology to confirm the reports that are in the chart. Patient shows negative blood cultures now on multiple occasions. The only positive one was on admission and that was staph epidermidis a contaminant. The wound grew out a species of Clostridium which was not perfringens. Patient grew out only one isolated colony, which is very rare. This to me would not warrant any further treatment. Also in reviewing patient's white count, patient came in at 17,200, it went down to 8800, and now is back up to 13.8. He is afebrile and does not appear to be septic. Also at this point DC the cefepime, as he is 9 days postop. I also currently do not see any indication for the Diflucan's this will be discontinued as well. This was originally started May 12 for possible sepsis, and is no longer necessary. We will follow daily labs with you. I have discussed this with the patient. Per the patient he may be going home in the next several days. - Time Time Spent with patient: 25-34 minutes
--- NOTE | 2019-05-18 13:52 | PDOC PROGRESS REPORT ---
Subjective Progress Note for:: 05/18/19 Subjective:: Reflux discomfort at epigastric area. Tolerated small amount of regular diet. Claims he is not hungry. Used to take Prilosec at home for reflux symptoms. Claims Pepcid not working for him. Reason For Visit: ACUTE SIGMOID DIVERTICULITIS WITH MICROPERFORATION Physical Exam Vital Signs: Temp Pulse Resp BP Pulse Ox 98.3 F 73 18 158/95 H 95 05/18/19 08:34 05/18/19 08:34 05/18/19 08:34 05/18/19 08:34 05/18/19 08:34 Intake & Output 05/17/19 05/18/19 05/19/19 06:59 06:59 06:59 Intake Total 1097 1624 Output Total 975 2950 Balance 122 -1326 Weight 92.5 kg 93.7 kg Exam: Abdomen is soft and non tender. Incision is dry and appears to be coaptating better. Afebrile. colostomy functioning well. Results Laboratory Results: 05/17/19 14:11 05/17/19 14:11 05/17/19 05/17/19 14:11 14:11 WBC 13.0 H RBC 3.55 L Hgb 10.9 L Hct 32.3 L MCV 91 MCH 30.7 MCHC 33.8 RDW 14.6 H Plt Count 892 H Seg Neutrophils % 77.6 Sodium 133.6 L Potassium 4.7 Chloride 104 Carbon Dioxide 23 Anion Gap 7 BUN 16 Creatinine 1.59 H Est GFR ( Amer) 56 L Glucose 103 Calcium 8.5 Impressions: Abdomen/Pelvis CT 05/04/19 23:58 IMPRESSION: 1. Acute sigmoid diverticulitis with microperforation. 2. No drainable abscess at this time. Chest X-Ray 05/11/19 08:54 IMPRESSION: Low inspiratory lung volumes and an asymmetric opacity in the left base that could represent a combination of pleural fluid, atelectasis, and in the proper clinical setting consolidation. Renal Ultrasound 05/16/19 00:00 IMPRESSION: No evidence of urinary tract obstruction. Known sizable left renal cyst. Assessment & Plan - Diagnosis (1) Diverticulitis of intestine with perforation without abscess Qualifiers: Diverticulitis site: large intestine Diverticulitis bleeding: unspecified bleeding status Qualified Code(s): K57.20 - Diverticulitis of large intestine with perforation and abscess without bleeding Is this a current diagnosis for this admission?: Yes - Time Time Spent with patient: 15-24 minutes - Inpatient Certification Medical Necessity: Need Close Monitoring Due to Risk of Patient Decompensation, Need for Pain Control - Plan Summary Plan Summary: He is POD 10 Luke's procedure. C/o reflux symptom which he has pre-op relieved with Prilosec. Has been off antibiotics past 24 hrs Plans: Discharge planning nurse consult for possible [facility] transfer primarily for Colostomy care. Patient has a 12 and 15 yo daughters who likely won't be able to help with colostomy care. Repeat all blood work in am prior to discharge [facility]
[2019-05-18] MEDS ORDERED: MAG HYDROX/AL HYDROX/SIMETH SUSP 30 ML UDCUP PO ONE (15:30)
[2019-05-18] MEDS: PANTOPRAZOLE SODIUM 20 MG TABLET.DR PO SCH (21:16)
[2019-05-18] MEDS: ACETAMINOPHEN 325 MG TABLET PO PRN (21:21)
[2019-05-18] MEDS: LORAZEPAM INJ 2 MG/1 ML VIAL IV PRN (23:40)
[2019-05-19] MEDS: ONDANSETRON HCL INJ/PF 4 MG/2 ML SDV IV PRN (06:02)
[2019-05-19] MEDS: MORPHINE SULFATE 10 MG/ML INJ IV PRN ×2 (06:02→16:07)
[2019-05-19 06:20] LABS: ABSOLUTE EOSINOPHILS # (AUTO) 0.2 10^3/uL (0.0-0.6); ABSOLUTE LYMPHOCYTES (AUTO) 2.1 10^3/uL (0.5-4.7); ABSOLUTE MONOCYTES (AUTO) 1.1 10^3/uL (0.1-1.4); ABSOLUTE NEUT (AUTO) 10.8 10^3/uL (1.7-8.2); BASOPHILS % (AUTO) 0.3 % (0-2); EOSINOPHILS % (AUTO) 1.4 % (0-6); HEMATOCRIT 33.5 % (37.9-51.0); HEMOGLOBIN 11.7 g/dL (13.5-17.0); LYMPHOCYTES % (AUTO) 14.9 % (13-45); MEAN CORPUSCULAR HEMOGLOBIN 31.3 pg (27.0-33.4); MEAN CORPUSCULAR HGB CONC 34.8 g/dL (32.0-36.0); MEAN CORPUSCULAR VOLUME 90 fl (80-97); MONOCYTES % (AUTO) 7.9 % (3-13); PLATELET COUNT 999 10^3/uL (150-450); RED BLOOD COUNT 3.73 10^6/uL (4.35-5.55); RED CELL DISTRIBUTION WIDTH 14.8 % (11.5-14.0); SEGMENTED NEUTROPHILS % (AUTO) 75.5 % (42-78); TOTAL CELLS COUNTED % (AUTO) 100 %; WHITE BLOOD COUNT 14.4 10^3/uL (4.0-10.5)
[2019-05-19 07:03] LABS: ANION GAP 12 (5-19); BLOOD UREA NITROGEN 18 mg/dL (7-20); CALCIUM 9.3 mg/dL (8.4-10.2); CARBON DIOXIDE 22 mmol/L (22-30); CHLORIDE 105 mmol/L (98-107); GLUCOSE 104 mg/dL (75-110); POTASSIUM 5.2 mmol/L (3.6-5.0); URIC ACID 6.8 mg/dL (3.5-8.5)
[2019-05-19] MEDS: METOPROLOL TARTRATE 50 MG TABLET PO SCH ×2 (09:56→21:37)
[2019-05-19] MEDS: FAMOTIDINE 20 MG TABLET PO SCH (09:57)
[2019-05-19] MEDS: NORMAL SALINE 1000 ML 1,000 ML IV PRN ×2 (09:57→21:37)
[2019-05-19] MEDS: PANTOPRAZOLE SODIUM 20 MG TABLET.DR PO SCH ×2 (09:57→21:36)
[2019-05-19] MEDS: THIAMINE HCL 100 MG TABLET PO SCH (10:00)
[2019-05-19] MEDS: MULTIVITAMIN TABLET PO SCH (10:09)
[2019-05-19] MEDS: FOLIC ACID 1 MG TABLET PO SCH (10:09)
--- NOTE | 2019-05-19 12:39 | PDOC PROGRESS REPORT ---
Subjective Progress Note for:: 05/19/19 Subjective:: joint pains Reflux symptoms resolved with Tums Reason For Visit: ACUTE SIGMOID DIVERTICULITIS WITH MICROPERFORATION Physical Exam Vital Signs: Temp Pulse Resp BP Pulse Ox 98.3 F 78 14 134/89 H 96 05/19/19 11:36 05/19/19 11:36 05/19/19 11:36 05/19/19 11:36 05/19/19 11:36 Intake & Output 05/18/19 05/19/19 05/20/19 06:59 06:59 06:59 Intake Total 1624 680 Output Total 2950 8795 Balance -1326 -1495 Weight 93.7 kg 93.5 kg Exam: Mild swelling and tenderness right 2nd and 3rd metacarpophalangeal joints and knee pains. Knees however are not in swollen orerythematous but with mild tenderness His abdomen is soft and nontender and the incision looks clean and dry. Colostomy is functioning well. Results Laboratory Results: 05/19/19 05:55 05/19/19 05:55 05/19/19 05/19/19 05:55 05:55 WBC 14.4 H RBC 3.73 L Hgb 11.7 L Hct 33.5 L MCV 90 MCH 31.3 MCHC 34.8 RDW 14.8 H Plt Count 999 H Seg Neutrophils % 75.5 Sodium 138.9 Potassium 5.2 H Chloride 105 Carbon Dioxide 22 Anion Gap 12 BUN 18 Creatinine 1.58 H Est GFR ( Amer) 57 L Glucose 104 Uric Acid 6.8 Calcium 9.3 Impressions: Abdomen/Pelvis CT 05/04/19 23:58 IMPRESSION: 1. Acute sigmoid diverticulitis with microperforation. 2. No drainable abscess at this time. Chest X-Ray 05/11/19 08:54 IMPRESSION: Low inspiratory lung volumes and an asymmetric opacity in the left base that could represent a combination of pleural fluid, atelectasis, and in the proper clinical setting consolidation. Renal Ultrasound 05/16/19 00:00 IMPRESSION: No evidence of urinary tract obstruction. Known sizable left renal cyst. Assessment & Plan - Diagnosis (1) Diverticulitis of intestine with perforation without abscess Qualifiers: Diverticulitis site: large intestine Diverticulitis bleeding: unspecified bleeding status Qualified Code(s): K57.20 - Diverticulitis of large intestine with perforation and abscess without bleeding Is this a current diagnosis for this admission?: Yes - Time Time Spent with patient: 15-24 minutes - Inpatient Certification Medical Necessity: Need For IV Fluids - Plan Summary Plan Summary: I discussed patient's case with the hospitalist who claims that patient had adequate duration of IV antibiotics and he is creatinine appears to be plateauing. Creatinine though still slightly elevated at 1.58 and discoid I decided to keep him a little hydrated because he is not taking enough fluids p.o. at this time The plan is to discharge him tomorrow and have the visiting nurse to see him at home for wound care and colostomy care. He needs to be followed up by his primary physician and have a BUN and creatinine as well as a CBC done in about a week. He will also be followed up in the surgical clinic in a week 2 weeks.
--- NOTE | 2019-05-19 16:48 | PDOC PROGRESS REPORT ---
Subjective Progress Note for:: 05/19/19 Subjective:: Today patient complains of polyarthralgia but denies any swelling in the regions. States that he feels similar to prior gout attacks. Denies any chest pain shortness of breath fever or chills. Still states that he feels weak and tired. Reason For Visit: ACUTE SIGMOID DIVERTICULITIS WITH MICROPERFORATION Physical Exam Vital Signs: Temp Pulse Resp BP Pulse Ox 98.3 F 77 14 134/89 H 96 05/19/19 11:36 05/19/19 14:00 05/19/19 11:36 05/19/19 11:36 05/19/19 11:36 Intake & Output 05/18/19 05/19/19 05/20/19 06:59 06:59 06:59 Intake Total 9061 218 6277 Output Total 2950 2175 750 Balance -1326 -1495 315 Weight 93.7 kg 93.5 kg General appearance: PRESENT: no acute distress Eye exam: PRESENT: EOMI Respiratory exam: PRESENT: clear to auscultation willian Cardiovascular exam: PRESENT: RRR, +S1, +S2. ABSENT: rubs GI/Abdominal exam: PRESENT: distended, normal bowel sounds, soft, tenderness. ABSENT: diminished bowel sounds, firm, guarding Rectal exam: PRESENT: deferred Extremities exam: ABSENT: joint swelling, tenderness Results Laboratory Results: 05/19/19 05:55 05/19/19 05:55 05/19/19 05/19/19 05:55 05:55 WBC 14.4 H RBC 3.73 L Hgb 11.7 L Hct 33.5 L MCV 90 MCH 31.3 MCHC 34.8 RDW 14.8 H Plt Count 999 H Seg Neutrophils % 75.5 Sodium 138.9 Potassium 5.2 H Chloride 105 Carbon Dioxide 22 Anion Gap 12 BUN 18 Creatinine 1.58 H Est GFR ( Amer) 57 L Glucose 104 Uric Acid 6.8 Calcium 9.3 Impressions: Abdomen/Pelvis CT 05/04/19 23:58 IMPRESSION: 1. Acute sigmoid diverticulitis with microperforation. 2. No drainable abscess at this time. Chest X-Ray 05/11/19 08:54 IMPRESSION: Low inspiratory lung volumes and an asymmetric opacity in the left base that could represent a combination of pleural fluid, atelectasis, and in the proper clinical setting consolidation. Renal Ultrasound 05/16/19 00:00 IMPRESSION: No evidence of urinary tract obstruction. Known sizable left renal cyst. Assessment and Plan - Diagnosis (1) JOSE (acute kidney injury) Is this a current diagnosis for this admission?: Yes Plan: Patient's creatinine seems to be trending down with IV fluids and patient has good urinary output Ultrasound reviewed without evidence of hydronephrosis or postrenal obstruction continuation of IV fluids recheck BMP to trend creatinine Creatinine seems to have plateaued now acceptable Patient should follow-up outpatient with primary care doctor to check BMP again in 1 week along with CBC (2) Diverticulitis of intestine with perforation without abscess Qualifiers: Diverticulitis site: large intestine Diverticulitis bleeding: unspecified bleeding status Qualified Code(s): K57.20 - Diverticulitis of large intestine with perforation and abscess without bleeding Is this a current diagnosis for this admission?: Yes Plan: Status post OR with resection and placement colostomy Seems to have completed required duration of antibiotics Currently vitals are stable,, blood cultures negative. Can continue to monitor off antibiotics. (3) Alcohol abuse Is this a current diagnosis for this admission?: Yes (4) Hypertension Is this a current diagnosis for this admission?: Yes Plan: Continue with with beta-calixto Continue to hold losartan given JOSE and hyperkalemia On discharge would recommend starting patient on amlodipine 5 mg daily as well while holding losartan. Losartan can be resumed by PCP once BMP repeated (5) Leukocytosis Qualifiers: Leukocytosis type: unspecified Qualified Code(s): D72.829 - Elevated white blood cell count, unspecified Is this a current diagnosis for this admission?: Yes Plan: We will monitor for now does not seem to be obvious worsening of infection (6) Heartburn Is this a current diagnosis for this admission?: Yes (7) Polyarthralgia Is this a current diagnosis for this admission?: Yes Plan: Patient states similar to prior gout episodes. Discussed with patient about possibility of giving prednisone but that will slow down wound healing and patient opted to forego that for now when he tried Tylenol and continue his allopurinol and colchicine. If this pain persist and patient becomes willing, may be okay to use give about 2 to 3 days of prednisone. Will avoid NSAIDs given acute renal failure. Can also try colchicine load with 1.2 mg followed by 0.6 mg after 2 hours. - Plan Summary Summary: 05/17/2019 We were consulted concerning ration of antibiotics and acute kidney injury.. patient's renal function when he was admitted his BUN was 14 it has gone up as high as 32 and now it is down to 17. When patient was admitted his creatinine was 2.04 it has gone up to 3.0 it is now 1.76. Patient had a renal ultrasound on 05 16 that showed no urinary tract obstruction. He is currently receiving normal saline at 60 mL's per hour. I feel like patient simply needs to increase his IV fluids to 150 an hour and this will be done. With gentle hydration he should not have any further problems. Concerning patient's antibiotics I reviewed the chart carefully especially the conservation science teacher note from 05/16/2019 concerning antibiotics. Patient originally had 7 days of Cipro and Flagyl , then was switched to vancomycin and Zosyn and is now on cefepime. I have called microbiology to confirm the reports that are in the chart. Patient shows negative blood cultures now on multiple occasions. The only positive one was on admission and that was staph epidermidis a contaminant. The wound grew out a species of Clostridium which was not perfringens. Patient grew out only one isolated colony, which is very rare. This to me would not warrant any further treatment. Also in reviewing patient's white count, patient came in at 17,200, it went down to 8800, and now is back up to 13.8. He is afebrile and does not appear to be septic. Also at this point DC the cefepime, as he is 9 days postop. I also currently do not see any indication for the Diflucan's this will be discontinued as well. This was originally started May 12 for possible sepsis, and is no longer necessary. We will follow daily labs with you. I have discussed this with the patient. Per the patient he may be going home in the next several days. - Time Time Spent with patient: 15-24 minutes
[2019-05-19] MEDS: ACETAMINOPHEN 325 MG TABLET PO PRN ×2 (17:38→21:36)
[2019-05-19] MEDS: LORAZEPAM INJ 2 MG/1 ML VIAL IV PRN (21:36)
[2019-05-20 04:29] LABS: ANION GAP 8 (5-19); BLOOD UREA NITROGEN 19 mg/dL (7-20); CALCIUM 8.9 mg/dL (8.4-10.2); CARBON DIOXIDE 23 mmol/L (22-30); CHLORIDE 106 mmol/L (98-107); GLUCOSE 94 mg/dL (75-110); POTASSIUM 5.6 mmol/L (3.6-5.0)
[2019-05-20] MEDS ORDERED: CALCIUM GLUCONATE 2,000 MG in DEXTROSE 5%-WATER 100 ML IV ONE (04:34)
[2019-05-20] MEDS ORDERED: CALCIUM GLUCONATE 1000 MG/10 ML INJ IV PRN (04:39)
[2019-05-20] MEDS: ACETAMINOPHEN 325 MG TABLET PO PRN ×4 (06:27→21:39)
[2019-05-20] MEDS ORDERED: FUROSEMIDE INJ/PF 40 MG/4 ML SDV IV ONE ×2 (07:40→16:51)
--- NOTE | 2019-05-20 08:22 | PDOC DISCHARGE SUMMARY ---
General - Admit/Disc Date/PCP Admission Date/Primary Care Provider: 05/05/19 01:44 DEB ESTRADA NP Discharge Date: 05/20/19 - Discharge Diagnosis Final Diagnosis: Perforated sigmoid diverticulitis with peritonitis Alcohol withdrawal syndrome Hypertension Acute Kidney Injury - Assessment Summary: 05/17/2019 We were consulted concerning ration of antibiotics and acute kidney injury.. patient's renal function when he was admitted his BUN was 14 it has gone up as high as 32 and now it is down to 17. When patient was admitted his creatinine was 2.04 it has gone up to 3.0 it is now 1.76. Patient had a renal ultrasound on 05 16 that showed no urinary tract obstruction. He is currently receiving normal saline at 60 mL's per hour. I feel like patient simply needs to increase his IV fluids to 150 an hour and this will be done. With gentle hydration he should not have any further problems. Concerning patient's antibiotics I reviewed the chart carefully especially the garment fitter note from 05/16/2019 concerning antibiotics. Patient originally had 7 days of Cipro and Flagyl , then was switched to vancomycin and Zosyn and is now on cefepime. I have called microbiology to confirm the reports that are in the chart. Patient shows negative blood cultures now on multiple occasions. The only positive one was on admission and that was staph epidermidis a contaminant. The wound grew out a species of Clostridium which was not perfringens. Patient grew out only one isolated colony, which is very rare. This to me would not warrant any further treatment. Also in reviewing patient's white count, patient came in at 17,200, it went down to 8800, and now is back up to 13.8. He is afebrile and does not appear to be septic. Also at this point DC the cefepime, as he is 9 days postop. I also currently do not see any indication for the Diflucan's this will be discontinued as well. This was originally started May 12 for possible sepsis, and is no longer necessary. We will follow daily labs with you. I have discussed this with the patient. Per the patient he may be going home in the next several days. Patient admitted 05/05/19 for acute sigmoid diverticulitis with microperforation on 05/05/19. Developed shortness of breath on 05/08/19 early am and chest XRay showed a lot of free air at the LUQ above the liver. Immediately taken to the OR for Exploratory L aparotomy and found Perforated Acute Sigmoid diverticulitis with peritonitis. A [facility] Procedure was done with end sigmoid colostomy. Post operatively appears to be having symptoms of alcohol withdrawal and kept intubated and transfered to the ICU. He gradually improved. His Creat slightly elevated from antibiotic toxicity. Antibiotics were stopped and creatinine improved. Day of discharged K is 5.6 with Creat 1.4 . - Additional Information Resuscitation Status: Full Code Referrals: [facility] [Provider Group] - 06/02/19 9:45 am EBONY EDUARDO DO [NO LOCAL MD] - 05/14/19 4:00 pm Home Medications: Amlodipine Besylate [Norvasc 2.5 mg Tablet] 2.5 mg PO DAILY 05/05/19 Losartan Potassium [Cozaar 100 mg Tablet] 100 mg PO DAILY 05/05/19 Omeprazole Magnesium [Prilosec Otc] 20 mg PO DAILY 05/05/19 History of Present Illiness History of Present Illness: MICHAEL BROWNING is a 48 year old male who has been constipated in the past several days complaining of severe lower abdominal pains last night. This was associated with diarrhea, nausea and chills and fever. He went to ED where CT scan of the abdomen revealed sigmoid diverticulitis with microperforation. He never had any same type of abdominal pains in the past. Hospital Course Hospital Course: [facility] procedure done 05/08/19 then brought to ICU post op primarily for alcohol withdrawal symptoms. Did fairly well with Creat increased due to Lasix and antibiotic toxicity. Creat 1.4 and K 5,6 on 04/19/19. Hospitalist will give IV lasix to get K down prior to discharge today. Arrngement with [facility] for colostomy care. Physical Exam Vital Signs: Temp Pulse Resp BP Pulse Ox 98.8 F 84 16 150/90 H 94 05/20/19 07:38 05/20/19 07:38 05/20/19 07:38 05/20/19 07:38 05/20/19 07:38 Intake & Output 05/19/19 05/20/19 05/21/19 06:59 06:59 06:59 Intake Total 680 2535 Output Total 2175 1330 Balance -1495 1205 Weight 93.5 kg 93.5 kg Exam: Diffuse abdominal tenderness on 05/08/19 prior to taking patient to OR. Results Laboratory Results: WBC 14.4 10^3/uL (4.0-10.5) H 05/19/19 05:55 RBC 3.73 10^6/uL (4.35-5.55) L 05/19/19 05:55 Hgb 11.7 g/dL (13.5-17.0) L 05/19/19 05:55 Hct 33.5 % (37.9-51.0) L 05/19/19 05:55 MCV 90 fl (80-97) 05/19/19 05:55 MCH 31.3 pg (27.0-33.4) 05/19/19 05:55 MCHC 34.8 g/dL (32.0-36.0) 05/19/19 05:55 RDW 14.8 % (11.5-14.0) H 05/19/19 05:55 Plt Count 999 10^3/uL (150-450) H 05/19/19 05:55 Lymph % (Auto) 14.9 % (13-45) 05/19/19 05:55 [place] % (Auto) 7.9 % (3-13) 05/19/19 05:55 Eos % (Auto) 1.4 % (0-6) 05/19/19 05:55 Baso % (Auto) 0.3 % (0-2) 05/19/19 05:55 Absolute Neuts (auto) 10.8 10^3/uL (1.7-8.2) H 05/19/19 05:55 Absolute Lymphs (auto) 2.1 10^3/uL (0.5-4.7) 05/19/19 05:55 Absolute Monos (auto) 1.1 10^3/uL (0.1-1.4) 05/19/19 05:55 Absolute Eos (auto) 0.2 10^3/uL (0.0-0.6) 05/19/19 05:55 Absolute Basos (auto) 0.0 10^3/uL (0.0-0.2) 05/19/19 05:55 Total Counted 100 05/13/19 04:26 Seg Neutrophils % 75.5 % (42-78) 05/19/19 05:55 Seg Neuts % (Manual) 76 % (42-78) 05/13/19 04:26 Band Neutrophils % 2 % (3-5) L 05/13/19 04:26 Lymphocytes % (Manual) 14 % (13-45) 05/13/19 04:26 Monocytes % (Manual) 7 % (3-13) 05/13/19 04:26 Eosinophils % (Manual) 1 % (0-6) 05/13/19 04:26 Basophils % (Manual) 0 % (0-2) 05/13/19 04:26 Metamyelocytes % 1 % (0) H 05/06/19 04:13 Abs Neuts (Manual) 10.6 10^3/uL (1.7-8.2) H 05/13/19 04:26 Abs Lymphs (Manual) 1.9 10^3/uL (0.5-4.7) 05/13/19 04:26 Abs Monocytes (Manual) 1.0 10^3/uL (0.1-1.4) 05/13/19 04:26 Absolute Eos (Manual) 0.1 10^3/uL (0.0-0.6) 05/13/19 04:26 Abs Basophils (Manual) 0.0 10^3/uL (0.0-0.2) 05/13/19 04:26 Toxic Granulation 1+ 05/11/19 08:17 Toxic Vacuolation PRESENT 05/13/19 04:26 Large Platelets PRESENT 05/06/19 04:13 Platelet Comment INCREASED 05/13/19 04:26 Anisocytosis SLIGHT 05/12/19 04:16 Tear Drop Cells SLIGHT 05/12/19 04:16 RBC Morph Comment NORMO-CYTIC/CHROMIC 05/13/19 04:26 Sodium 136.6 mmol/L (137-145) L 05/20/19 03:52 Potassium 5.6 mmol/L (3.6-5.0) H 05/20/19 03:52 Chloride 106 mmol/L (98-107) 05/20/19 03:52 Carbon Dioxide 23 mmol/L (22-30) 05/20/19 03:52 Anion Gap 8 (5-19) 05/20/19 03:52 BUN 19 mg/dL (7-20) 05/20/19 03:52 Creatinine 1.47 mg/dL (0.52-1.25) H 05/20/19 03:52 Est GFR ( Amer) > 60 (>60) 05/20/19 03:52 Est GFR (MDRD) Non-Af 51 (>60) L 05/20/19 03:52 Glucose 94 mg/dL (75-110) 05/20/19 03:52 POC Glucose 100 mg/dL (70-110) 05/11/19 01:21 Lactic Acid 1.2 mmol/L (0.7-2.1) 05/05/19 19:28 Uric Acid 6.8 mg/dL (3.5-8.5) 05/19/19 05:55 Calcium 8.9 mg/dL (8.4-10.2) 05/20/19 03:52 Magnesium 2.2 mg/dL (1.6-2.3) 05/20/19 03:52 Total Bilirubin 1.2 mg/dL (0.2-1.3) 05/06/19 04:13 Direct Bilirubin 0.6 mg/dL (0.0-0.4) H 05/06/19 04:13 Neonat Total Bilirubin Not Reportable 05/06/19 04:13 Neonat Direct Bilirubin Not Reportable 05/06/19 04:13 Neonat Indirect Bili Not Reportable 05/06/19 04:13 AST 21 U/L (17-59) 05/06/19 04:13 ALT 19 U/L (<50) 05/06/19 04:13 Alkaline Phosphatase 54 U/L (38-126) 05/06/19 04:13 Total Protein 5.3 g/dL (6.3-8.2) L 05/06/19 04:13 Albumin 2.8 g/dL (3.5-5.0) L 05/06/19 04:13 Lipase 40.7 U/L (23-300) 05/05/19 00:03 Urine Color YELLOW 05/16/19 11:05 Urine Appearance CLEAR 05/16/19 11:05 Urine pH 6.0 (5.0-9.0) 05/16/19 11:05 Ur Specific [place] 1.009 05/16/19 11:05 Urine Protein NEGATIVE mg/dL (NEGATIVE) 05/16/19 11:05 Urine Glucose (UA) NEGATIVE mg/dL (NEGATIVE) 05/16/19 11:05 Urine Ketones NEGATIVE mg/dL (NEGATIVE) 05/16/19 11:05 Urine Blood SMALL (NEGATIVE) H 05/16/19 11:05 Urine Nitrite (Reflex) NEGATIVE (NEGATIVE) 05/16/19 11:05 Urine Bilirubin NEGATIVE (NEGATIVE) 05/16/19 11:05 Urine Urobilinogen NEGATIVE mg/dL (<2.0) 05/16/19 11:05 Leukocyte Esterase Rfl NEGATIVE (NEGATIVE) 05/16/19 11:05 Urine RBC (Auto) 0 /HPF 05/16/19 11:05 Squamous Epi Cells Auto FEW /HPF 05/16/19 11:05 Urine Ascorbic Acid NEGATIVE (NEGATIVE) 05/16/19 11:05 Time Trough Drawn Cancelled 05/15/19 09:45 Vancomycin Trough Cancelled 05/15/19 09:45 Blood Type O POSITIVE 05/08/19 04:05 Antibody Screen NEGATIVE 05/08/19 04:05 Impressions: Abdomen/Pelvis CT 05/04/19 23:58 IMPRESSION: 1. Acute sigmoid diverticulitis with microperforation. 2. No drainable abscess at this time. Chest X-Ray 05/08/19 00:00 IMPRESSION: Moderate pneumoperitoneum could be iatrogenic or due to bowel perforation. Consider immediate Surgical referral. Chest X-Ray 05/08/19 00:00 IMPRESSION: Enteric tube tip in the stomach. Mild pulmonary vascular congestion Chest X-Ray 05/11/19 08:54 IMPRESSION: Low inspiratory lung volumes and an asymmetric opacity in the left base that could represent a combination of pleural fluid, atelectasis, and in the proper clinical setting consolidation. Renal Ultrasound 05/16/19 00:00 IMPRESSION: No evidence of urinary tract obstruction. Known sizable left renal cyst. Plan Health Concerns: Creatinine is slightly elevated as well as WBC. Patient will see his PMD in a week to monitor these lab studies. Plan of Treatment: [facility]NA for colostomy care Goals: To be seen in surgical clinic to arrange for reversal of colostomy Time Spent: Less than 30 Minutes
[2019-05-20] MEDS: PANTOPRAZOLE SODIUM 20 MG TABLET.DR PO SCH ×2 (09:55→21:39)
[2019-05-20] MEDS: METOPROLOL TARTRATE 50 MG TABLET PO SCH (09:55)
[2019-05-20] MEDS: FAMOTIDINE 20 MG TABLET PO SCH (09:55)
[2019-05-20] MEDS: MULTIVITAMIN TABLET PO SCH (09:57)
[2019-05-20] MEDS: FOLIC ACID 1 MG TABLET PO SCH (09:57)
[2019-05-20] MEDS: THIAMINE HCL 100 MG TABLET PO SCH (09:57)
--- NOTE | 2019-05-20 14:25 | PDOC PROGRESS REPORT ---
Subjective Progress Note for:: 05/20/19 Subjective:: Today patient still complains of polyarthralgia in her hands and knees. States that he feels a lot better overall today than yesterday. Denies any chest pain shortness of breath fever or chills. Reason For Visit: ACUTE SIGMOID DIVERTICULITIS WITH MICROPERFORATION Physical Exam Vital Signs: Temp Pulse Resp BP Pulse Ox 98.1 F 81 17 133/87 H 96 05/20/19 11:57 05/20/19 11:57 05/20/19 11:57 05/20/19 11:57 05/20/19 11:57 Intake & Output 05/19/19 05/20/19 05/21/19 06:59 06:59 06:59 Intake Total 680 2535 Output Total 2175 1330 Balance -1495 1205 Weight 93.5 kg 93.5 kg General appearance: PRESENT: no acute distress, cooperative Respiratory exam: PRESENT: clear to auscultation willian, symmetrical, unlabored. ABSENT: tachypnea, wheezes Cardiovascular exam: PRESENT: RRR, +S1, +S2. ABSENT: gallop Vascular exam: ABSENT: pallor GI/Abdominal exam: PRESENT: normal bowel sounds, soft, tenderness. ABSENT: guarding, rigid Extremities exam: PRESENT: other - Very mild tenderness in interphalangeal joints and no tenderness in the joints. No swelling erythema or warmth of these joints.. ABSENT: joint swelling Musculoskeletal exam: PRESENT: ambulatory Neurological exam: PRESENT: alert, awake, oriented to person, oriented to place, oriented to time, oriented to situation Results Laboratory Results: 05/19/19 05:55 05/20/19 03:52 05/20/19 03:52 Sodium 136.6 L Potassium 5.6 H Chloride 106 Carbon Dioxide 23 Anion Gap 8 BUN 19 Creatinine 1.47 H Est GFR ( Amer) > 60 Glucose 94 Calcium 8.9 Magnesium 2.2 Impressions: Abdomen/Pelvis CT 05/04/19 23:58 IMPRESSION: 1. Acute sigmoid diverticulitis with microperforation. 2. No drainable abscess at this time. Chest X-Ray 05/11/19 08:54 IMPRESSION: Low inspiratory lung volumes and an asymmetric opacity in the left base that could represent a combination of pleural fluid, atelectasis, and in the proper clinical setting consolidation. Renal Ultrasound 05/16/19 00:00 IMPRESSION: No evidence of urinary tract obstruction. Known sizable left renal cyst. Assessment and Plan - Diagnosis (1) Hyperkalemia Is this a current diagnosis for this admission?: Yes Plan: I suspect that this is likely 2/2 increased tissue breakdown from surgical wound and to a much smaller degree from the JOSE. I gave a dose of lasix this Morning and will recheck BMP at 3pm. (2) JOSE (acute kidney injury) Is this a current diagnosis for this admission?: Yes Plan: Patient's creatinine stable now. Patient should follow-up outpatient with primary care provider's office to check BMP along with CBC. I have set up a follow up appointment with his PCP's EMILIE Burns on 05/26/19 at 1:30pm at [facility] (3) Diverticulitis of intestine with perforation without abscess Qualifiers: Diverticulitis site: large intestine Diverticulitis bleeding: unspecified bleeding status Qualified Code(s): K57.20 - Diverticulitis of large intestine with perforation and abscess without bleeding Is this a current diagnosis for this admission?: Yes Plan: Status post OR with resection and placement colostomy Seems to have completed required duration of antibiotics Currently vitals are stable, blood cultures negative. Can continue to monitor off antibiotics. (4) Alcohol abuse Is this a current diagnosis for this admission?: Yes (5) Hypertension Is this a current diagnosis for this admission?: Yes Plan: On discharge would recommend starting patient on amlodipine 5 mg daily as well while holding losartan given JOSE and hyperkalemia. Losartan can be resumed by PCP outpatient once BMP repeated. (6) Polyarthralgia Is this a current diagnosis for this admission?: Yes Plan: Patient states similar to prior gout episodes. Discussed with patient about possibility of giving prednisone but that will slow down wound healing and patient opted to forego that for now when he tried Tylenol and continue his allopurinol and colchicine. -Would recommend a colchicine load with 1.2 mg followed by 0.6 mg after 2 hours. - Plan Summary Summary: 05/17/2019 We were consulted concerning ration of antibiotics and acute kidney injury.. patient's renal function when he was admitted his BUN was 14 it has gone up as high as 32 and now it is down to 17. When patient was admitted his creatinine was 2.04 it has gone up to 3.0 it is now 1.76. Patient had a renal ultrasound on 05 16 that showed no urinary tract obstruction. He is currently receiving normal saline at 60 mL's per hour. I feel like patient simply needs to increase his IV fluids to 150 an hour and this will be done. With gentle hydration he should not have any further problems. Concerning patient's antibiotics I reviewed the chart carefully especially the cable wirer note from 05/16/2019 concerning antibiotics. Patient originally had 7 days of Cipro and Flagyl , then was switched to vancomycin and Zosyn and is now on cefepime. I have called microbiology to confirm the reports that are in the chart. Patient shows negative blood cultures now on multiple occasions. The only positive one was on admission and that was staph epidermidis a contaminant. The wound grew out a species of Clostridium which was not perfringens. Patient grew out only one isolated colony, which is very rare. This to me would not warrant any further treatment. Also in reviewing patient's white count, patient came in at 17,200, it went down to 8800, and now is back up to 13.8. He is afebrile and does not appear to be septic. Also at this point DC the cefepime, as he is 9 days postop. I also currently do not see any indication for the Diflucan's this will be discontinued as well. This was originally started May 12 for possible sepsis, and is no longer necessary. We will follow daily labs with you. I have discussed this with the patient. Per the patient he may be going home in the next several days. Patient admitted 05/05/19 for acute sigmoid diverticulitis with microperforation on 05/05/19. Developed shortness of breath on 05/08/19 early am and chest XRay showed a lot of free air at the LUQ above the liver. Immediately taken to the OR for Exploratory L aparotomy and found Perforated Acute Sigmoid diverticulitis with peritonitis. A [facility] Procedure was done with end sigmoid colostomy. Post operatively appears to be having symptoms of alcohol withdrawal and kept intubated and transfered to the ICU. He gradually improved. His Creat slightly elevated from antibiotic toxicity. Antibiotics were stopped and creatinine improved. Day of discharged K is 5.6 with Creat 1.4 . - Time Time Spent with patient: 15-24 minutes
[2019-05-20 16:24] LABS: ANION GAP 10 (5-19); BLOOD UREA NITROGEN 21 mg/dL (7-20); CALCIUM 9.3 mg/dL (8.4-10.2); CARBON DIOXIDE 25 mmol/L (22-30); CHLORIDE 98 mmol/L (98-107); GLUCOSE 105 mg/dL (75-110)
[2019-05-20] MEDS ORDERED: NORMAL SALINE 1000 ML 500 ML IV ONE (16:50)
[2019-05-20] MEDS ORDERED: DEXTROSE 50%-WATER 25 GM/50 ML DISP.SYRIN IV ONE (16:51)
[2019-05-20] MEDS ORDERED: INSULIN REG, HUMAN 100 UNIT/ML 3 ML VIAL (PYX) IV ONE (16:51)
--- NOTE | 2019-05-20 17:25 | Progress Note ---
Provider Note Provider Note: I was informed by nurse the patient's potassium level resulted at 6. I ordered an EKG which showed no EKG changes associated with hyperkalemia and normal T waves. I placed an order for regular insulin 10 mg IV to be given right after a 1 amp bolus of D50. I also placed an order for Lasix 40 mg IV along with 500 cc bolus of normal saline. We will go ahead and recheck BMP again at 9 PM which will be followed by the internship. Will monitor blood sugars with an Accu-Chek 2 and 4 hours after the insulin is given. I will follow another BMP in the morning. I placed in order for cardiac monitoring. I still strongly believe the patient's hyperkalemia is being caused by continuous tissue breakdown from surgical site. However I held patient's metoprolol in a bid to stop any other factors that could potentially be contributing to hyperkalemia. Recommend keeping patient off heparin for now. In place of patient's metoprolol and since he is not on losartan anymore while in the hospital, I have placed patient on amlodipine to help control his blood pressure. Left message with Surgicalist's plumber assistant to relay about this changes.
[2019-05-20] MEDS ORDERED: SODIUM POLYSTYRENE SULFONATE 15 GM/60 ML PO ONE (20:00)
[2019-05-20 21:14] LABS: APPEARANCE,URINE CLEAR; BILIRUBIN,URINE NEGATIVE (NEGATIVE); COLOR,URINE STRAW; GLUCOSE, URINE NEGATIVE (NEGATIVE); KETONES,URINE NEGATIVE (NEGATIVE); LEUKOCYTE ESTERASE,URINE NEGATIVE (NEGATIVE); NITRITE,URINE NEGATIVE (NEGATIVE); PROTEIN,URINE NEGATIVE (NEGATIVE); URINE SPECIFIC GRAVITY 1.006; UROBILINOGEN,URINE NEGATIVE mg/dL (<2.0)
[2019-05-20 21:49] LABS: ANION GAP 12 (5-19); BLOOD UREA NITROGEN 22 mg/dL (7-20); CARBON DIOXIDE 25 mmol/L (22-30); CHLORIDE 100 mmol/L (98-107); GLUCOSE 96 mg/dL (75-110)
[2019-05-20 21:53] LABS: POTASSIUM 4.2 mmol/L (3.6-5.0)
[2019-05-20] MEDS ORDERED: AMLODIPINE BESYLATE 5 MG TABLET PO ONE (22:00)
--- NOTE | 2019-05-20 22:40 | EKG REPORT ---
SEVERITY:- NORMAL ECG - SINUS RHYTHM : Confirmed by: Ellen Page 20-May-2019 22:39:51
--- NOTE | 2019-05-20 22:41 | EKG REPORT ---
SEVERITY:- NORMAL ECG - SINUS RHYTHM : Confirmed by: Ellen Page 20-May-2019 22:41:15
[2019-05-21] MEDS: ACETAMINOPHEN 325 MG TABLET PO PRN ×2 (04:03→10:38)
[2019-05-21 05:49] LABS: ANION GAP 10 (5-19); BLOOD UREA NITROGEN 20 mg/dL (7-20); CALCIUM 9.2 mg/dL (8.4-10.2); CARBON DIOXIDE 24 mmol/L (22-30); CHLORIDE 98 mmol/L (98-107); GLUCOSE 96 mg/dL (75-110); POTASSIUM 4.9 mmol/L (3.6-5.0)
[2019-05-21 05:53] LABS: CREATINE KINASE < 20 U/L (55-170)
[2019-05-21] MEDS ORDERED: AMLODIPINE BESYLATE 10 MG TABLET PO SCH (10:00)
--- NOTE | 2019-05-21 10:27 | PDOC PROGRESS REPORT ---
Subjective Progress Note for:: 05/21/19 Subjective:: Patient feels well today. Patient's potassium improved. I had a lengthy conversation with patient about the cause of his hyperkalemia being from tissue breakdown from the surgery most likely. I also discussed the ways to control hyperkalemia if it creeps back up. I explained the risks and benefits of using Lasix or Veltassa in the setting of his JOSE and colon surgery respectively. After lengthy conversation patient preferred to go with the option of Lasix da matthieu for the next few days only and accompanied that with and showing more than adequate hydration to prevent worsening of the JOSE as opposed to running risk of bowel complications with the Veltassa given his recent bowel surgery. Patient is agreeing to follow-up with his scheduled appointment with his primary care doctor's office for next week for repeat blood work. Reason For Visit: ACUTE SIGMOID DIVERTICULITIS WITH MICROPERFORATION Physical Exam Vital Signs: Temp Pulse Resp BP Pulse Ox 98.7 F 77 15 120/81 97 05/21/19 07:27 05/21/19 07:27 05/21/19 07:27 05/21/19 07:27 05/21/19 07:27 Intake & Output 05/20/19 05/21/19 05/22/19 06:59 06:59 06:59 Intake Total 2535 1574 Output Total 1330 4200 Balance 1205 -2626 Weight 93.5 kg 86.7 kg General appearance: PRESENT: no acute distress, cooperative Head exam: PRESENT: normocephalic Eye exam: PRESENT: EOMI Mouth exam: PRESENT: neck supple Neck exam: ABSENT: tracheal deviation Cardiovascular exam: PRESENT: RRR, +S1, +S2. ABSENT: tachycardia Vascular exam: ABSENT: pallor GI/Abdominal exam: PRESENT: normal bowel sounds, soft, tenderness. ABSENT: distended Rectal exam: PRESENT: deferred Gentrourinary exam: ABSENT: ecchymosis Extremities exam: ABSENT: calf tenderness Musculoskeletal exam: PRESENT: ambulatory Neurological exam: PRESENT: alert, awake, oriented to person, oriented to place, oriented to time, oriented to situation Results Laboratory Results: 05/19/19 05:55 05/21/19 05:02 05/20/19 05/20/19 05/20/19 15:34 19:55 20:55 Sodium 132.9 L Potassium 6.0 H* 5.3 H Chloride 98 Carbon Dioxide 25 Anion Gap 10 BUN 21 H Creatinine 1.45 H Est GFR ( Amer) > 60 Glucose 105 Calcium 9.3 Urine Color STRAW Urine Appearance CLEAR Urine pH 5.0 Ur Specific [place] 1.006 Urine Protein NEGATIVE Urine Glucose (UA) NEGATIVE Urine Ketones NEGATIVE Urine Blood NEGATIVE Urine Nitrite NEGATIVE Ur Leukocyte Esterase NEGATIVE Urine WBC (Auto) 1 05/20/19 05/21/19 21:19 05:02 Sodium 136.7 L 132.1 L Potassium 4.2 D 4.9 Chloride 100 98 Carbon Dioxide 25 24 Anion Gap 12 10 BUN 22 H 20 Creatinine 1.82 H 1.55 H Est GFR ( Amer) 48 L 58 L Glucose 96 96 Calcium 9.0 9.2 Urine Color Urine Appearance Urine pH Ur Specific [place] Urine Protein Urine Glucose (UA) Urine Ketones Urine Blood Urine Nitrite Ur Leukocyte Esterase Urine WBC (Auto) 05/16/19 08:55 Blood Blood Culture - Final NO GROWTH IN 5 DAYS 05/16/19 07:37 Blood Blood Culture - Final NO GROWTH IN 5 DAYS 05/20/19 05/21/19 19:55 05:02 Creatine Kinase 31 L < 20 L Impressions: Abdomen/Pelvis CT 05/04/19 23:58 IMPRESSION: 1. Acute sigmoid diverticulitis with microperforation. 2. No drainable abscess at this time. Chest X-Ray 05/11/19 08:54 IMPRESSION: Low inspiratory lung volumes and an asymmetric opacity in the left base that could represent a combination of pleural fluid, atelectasis, and in the proper clinical setting consolidation. Renal Ultrasound 05/16/19 00:00 IMPRESSION: No evidence of urinary tract obstruction. Known sizable left renal cyst. Assessment and Plan - Diagnosis (1) Hyperkalemia Is this a current diagnosis for this admission?: Yes (2) JOSE (acute kidney injury) Is this a current diagnosis for this admission?: Yes (3) Diverticulitis of intestine with perforation without abscess Qualifiers: Diverticulitis site: large intestine Diverticulitis bleeding: unspecified bleeding status Qualified Code(s): K57.20 - Diverticulitis of large intestine with perforation and abscess without bleeding Is this a current diagnosis for this admission?: Yes (4) Alcohol abuse Is this a current diagnosis for this admission?: Yes (5) Hypertension Is this a current diagnosis for this admission?: Yes - Plan Summary Summary: Patient's hyperkalemia is secondary to mechanical tissue destruction from recent surgical wounds. CK is normal indicating no rhabdomyolysis or significant muscle involvement. Other medications that could contribute to hyperkalemia have been discontinued specifically losartan and metoprolol. I have also had a lengthy conversation with patient about ways to control his hyperkalemia and the potential for Lasix complicating his JOSE if he does not show adequate hydration and the potential for Veltassa leading to bowel complications in the setting of his recent bowel surgery. After lengthy conversation patient has assured me that he will ensure adequate hydration but prefers to do the Lasix instead. So the plan is: -Continue to hold losartan and beta-calixto. I have started patient on amlodipine 10 mg daily to help control his blood pressure. -Losartan and beta-calixto can be restarted by primary care provider after repeating BMP as outpatient -I have sent prescription for Lasix to patient's pharmacy. He is going to take Lasix 40 mg daily for the next 7 days with adequate hydration -Follow-up with primary care provider on Friday next week at 1:30 PM for repeat BMP and CBC. I have already set up this appointment. - Time Time Spent with patient: 25-34 minutes
[2019-05-21] MEDS: FOLIC ACID 1 MG TABLET PO SCH (10:39)
[2019-05-21] MEDS: FAMOTIDINE 20 MG TABLET PO SCH (10:40)
[2019-05-21] MEDS: THIAMINE HCL 100 MG TABLET PO SCH (10:41)
[2019-05-21] MEDS: PANTOPRAZOLE SODIUM 20 MG TABLET.DR PO SCH (10:41)
[2019-05-21] MEDS: MULTIVITAMIN TABLET PO SCH (10:41)
--- NOTE | 2019-05-21 10:54 | PDOC PROGRESS REPORT ---
Subjective Progress Note for:: 05/21/19 Subjective:: No complaints of Reason For Visit: ACUTE SIGMOID DIVERTICULITIS WITH MICROPERFORATION Physical Exam Vital Signs: Temp Pulse Resp BP Pulse Ox 98.7 F 77 15 120/81 97 05/21/19 07:27 05/21/19 07:27 05/21/19 07:27 05/21/19 07:27 05/21/19 07:27 Intake & Output 05/20/19 05/21/19 05/22/19 06:59 06:59 06:59 Intake Total 2535 1574 Output Total 1330 4200 Balance 1205 -2626 Weight 93.5 kg 86.7 kg General appearance: PRESENT: no acute distress GI/Abdominal exam: PRESENT: soft, other - Midline incision well-healing with small 2 inch opening granulating, fascia intact; left side colostomy viable, with gas and stools in the bag Results Laboratory Results: 05/19/19 05:55 05/21/19 05:02 05/20/19 05/20/19 05/20/19 15:34 19:55 20:55 Sodium 132.9 L Potassium 6.0 H* 5.3 H Chloride 98 Carbon Dioxide 25 Anion Gap 10 BUN 21 H Creatinine 1.45 H Est GFR ( Amer) > 60 Glucose 105 Calcium 9.3 Urine Color STRAW Urine Appearance CLEAR Urine pH 5.0 Ur Specific [place] 1.006 Urine Protein NEGATIVE Urine Glucose (UA) NEGATIVE Urine Ketones NEGATIVE Urine Blood NEGATIVE Urine Nitrite NEGATIVE Ur Leukocyte Esterase NEGATIVE Urine WBC (Auto) 1 05/20/19 05/21/19 21:19 05:02 Sodium 136.7 L 132.1 L Potassium 4.2 D 4.9 Chloride 100 98 Carbon Dioxide 25 24 Anion Gap 12 10 BUN 22 H 20 Creatinine 1.82 H 1.55 H Est GFR ( Amer) 48 L 58 L Glucose 96 96 Calcium 9.0 9.2 Urine Color Urine Appearance Urine pH Ur Specific [place] Urine Protein Urine Glucose (UA) Urine Ketones Urine Blood Urine Nitrite Ur Leukocyte Esterase Urine WBC (Auto) 05/16/19 08:55 Blood Blood Culture - Final NO GROWTH IN 5 DAYS 05/16/19 07:37 Blood Blood Culture - Final NO GROWTH IN 5 DAYS 05/20/19 05/21/19 19:55 05:02 Creatine Kinase 31 L < 20 L Impressions: Abdomen/Pelvis CT 05/04/19 23:58 IMPRESSION: 1. Acute sigmoid diverticulitis with microperforation. 2. No drainable abscess at this time. Chest X-Ray 05/11/19 08:54 IMPRESSION: Low inspiratory lung volumes and an asymmetric opacity in the left base that could represent a combination of pleural fluid, atelectasis, and in the proper clinical setting consolidation. Renal Ultrasound 05/16/19 00:00 IMPRESSION: No evidence of urinary tract obstruction. Known sizable left renal cyst. Assessment & Plan - Diagnosis (1) JOSE (acute kidney injury) Is this a current diagnosis for this admission?: Yes (2) Diverticulitis of intestine with perforation without abscess Qualifiers: Diverticulitis site: large intestine Diverticulitis bleeding: unspecified bleeding status Qualified Code(s): K57.20 - Diverticulitis of large intestine with perforation and abscess without bleeding Is this a current diagnosis for this admission?: Yes (3) Hyperkalemia Is this a current diagnosis for this admission?: Yes - Time Time Spent with patient: 15-24 minutes - Plan Summary Plan Summary: Assessment: 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 well Gas and stools in the colostomy bag Abdomen soft Plan: Patient can be safely discharged to home today Patient recommended to drink large amount of IV fluids to improve his potassium renal excretion Follow-up with his primary care physician next week for blood work Follow-up with the surgical office on June 09 for staple removal Wet-to-dry normal saline abdominal wound dressing changes twice a day
[2019-05-21 14:22] VITALS: BP 144/90
== END 2019-05-21 15:44 | disposition home or self-care (01) | DRG 329 ==
LOC: ER 23:13 → EH 05-05 01:44 → 4N 05-05 03:35 → 3N 05-08 07:54 → ICU 05-08 10:31 → 4N 05-16 19:30
PROVIDERS: ADMIT Surgery; ATTEND Surgery
PROC: 0D1N0Z4 Bypass Sigmoid Colon to Cutaneous, Open Approach (ICD-10-PCS; 2019-05-08)
PROC: 0DTN0ZZ Resection of Sigmoid Colon, Open Approach (ICD-10-PCS; principal; 2019-05-08 04:22)
DX: K57.20 Diverticulitis of large intestine with perforation and abscess without bleeding (principal); J18.9 Pneumonia, unspecified organism; N17.9 Acute kidney failure, unspecified; F10.231 Alcohol dependence with withdrawal delirium; I10 Essential (primary) hypertension; Y95 Nosocomial condition; R12 Heartburn; E87.5 Hyperkalemia; E66.9 Obesity, unspecified; Z78.1 Physical restraint status; Z87.891 Personal history of nicotine dependence
CPT/HCPCS: 00790; 36415; 71045; 74176; 76770; 80048; 80053; 80202; 81001; 82550; 82962; 83605; 83690; 83735; 84132; 84550; 85025; 86850; 86900; 86901; 87040; 87070; 87075; 87077; 87186; 87205; 88307; 93005; 93010; 96361; 96374; 96375; 96376; 99232; 99291; J0131; J0330; J0610; J0692; J0744; J1100; J1170; J1450; J1630; J1650; J1815; J1885; J1940; J2060; J2250; J2270; J2405; J2543; J2704; J3010; J3370; J3411; J3490; J7030; J7050; J7060; J7121; S0028